=== PATIENT | female | born 1935 | race Caucasian/White ===

== ENCOUNTER 2017-06-16 09:02 | Outpatient (CLI) | payer MEDICARE, MEDICAID ==
[2017-06-16 09:49] LABS: Anion Gap 14 mmol/L (10-20); BUN (Urea Nitrogen) 10 mg/dL (9.8-20.1); Calc. Creatinine Clearance 0 mL/min (70-130); Calcium 9.9 mg/dL (7.8-10.44); Carbon Dioxide 26 mmol/L (23-31); Chloride 105 mmol/L (98-107); Estimated GFR-MDRD 72
--- NOTE | 2017-06-16 11:42 | CT ---
CT OF ABDOMEN AND PELVIS PERFORMED WITHOUT CONTRAST ENHANCEMENT: HISTORY: Hematuria. COMPARISON: 03/11/2015 study. FINDINGS: CT OF ABDOMEN PERFORMED WITHOUT CONTRAST ENHANCEMENT: The lung bases are clear of infiltrates. There is linear scarring in the left base. There are fatty changes of the liver. The spleen and pancreas regions are unremarkable. Gallbladder has been removed. Right and left adrenal glands and right and left kidneys are normal in size. There is a punctate upp er pole left renal calculus present. No obstruction of ureteral calculi. No significant periaortic or mesenteric adenopathy. CT OF PELVIS PERFORMED WITHOUT CONTRAST ENHANCEMENT: No adenopathy, mass, or free fluid. The appendix region appears normal. IMPRESSION: 1. Punctate non-obstructing upper pole left renal calculus. 2. Fatty changes of the liver. POS: JODEEH
== END 2017-06-16 09:03 | disposition home or self-care (01) ==
LOC: CT 09:02
PROVIDERS: ATTEND Urology
DX: N20.0 Calculus of kidney (principal); R31.29 Other microscopic hematuria; E11.9 Type 2 diabetes mellitus without complications; N39.46 Mixed incontinence; K76.0 Fatty (change of) liver, not elsewhere classified
CPT/HCPCS: 36415; 74176; 80048; 83036

== ENCOUNTER 2017-09-30 09:40 | Observation (INO) | payer MEDICARE, MEDICAID ==
[2017-09-30 10:20] LABS: #Eosinphils 0.5 thou/uL (0.0-0.7); #Lymphocytes 1.1 thou/uL (1.20-3.40); #Monocytes 0.6 thou/uL (0.11-0.59); #Neutrophils 5.6 thou/uL (1.40-6.50); %Basophils 0.5 % (0.0-1.0); %Eosinophils 6.1 % (0.0-10.0); %Lymphocytes 14.5 % (21.0-51.0); %Monocytes 7.1 % (0.0-10.0); %Neutrophils 71.8 % (42.0-75.0); Hemoglobin 13.1 g/dL (12.0-16.0); Mean Corpuscular HGB CONC 33.7 g/dL (32.0-36.0); Mean Corpuscular Hemoglobin 29.2 pg (27.0-31.0); Mean Corpuscular Volume 86.7 fl (81.0-99.0); Mean Platelet Volume 6.4 fL (7.4-10.4); Platelet Count 273 thou/uL (130-400); RBC Distribution Width 12.5 % (11.5-14.5); White Blood Cell (WBC) Count 7.8 thou/uL (4.8-10.8)
[2017-09-30 10:40] LABS: ALT (SGPT) 37 U/L (8-55); AST (SGOT) 29 U/L (5-34); Albumin 4.1 g/dL (3.4-4.8); Alkaline Phosphatase 97 U/L (40-150); Anion Gap 10 mmol/L (10-20); BUN (Urea Nitrogen) 14 mg/dL (9.8-20.1); Bilirubin, Total 0.5 mg/dL (0.2-1.2); Calc. Creatinine Clearance 0 mL/min (70-130); Calcium 9.6 mg/dL (7.8-10.44); Carbon Dioxide 25 mmol/L (23-31); Chloride 108 mmol/L (98-107); Estimated GFR-MDRD 71; Globulin 3.5 g/dL (2.4-3.5); Glucose 193 mg/dL (83-110); Potassium 4.1 mmol/L (3.5-5.1); Protein, Total 7.6 g/dL (6.0-8.3); Sodium 139 mmol/L (136-145)
[2017-09-30 10:43] LABS: CKMB 0.9 ng/mL (0-6.6); Troponin I Less than 0.010 ng/mL (< 0.028)
--- NOTE | 2017-09-30 12:24 | CT ---
CT OF THE EMELINA WITHOUT CONTRAST: INDICATION: History of syncope with daily headaches. COMPARISON: Prior exam dated 03/03/17. FINDINGS: The moderate chronic small-vessel white matter ischemic change is stable. No acute infarct, hemorrha ge, or hydrocephalus is present. Septum pellucidum and third ventricle are midline. The skull and e xtracranial soft tissues are unremarkable. IMPRESSION: 1. No acute intracranial abnormality. 2. Stable chronic ischemic change. POS: SAIGE
[2017-09-30] MEDS ORDERED: Acetaminophen 325 MG TAB PO PRN (13:18)
[2017-09-30] MEDS ORDERED: Dextrose 50% Abboject 50 ML SYRINGE SLOW IVP PRN (13:18)
[2017-09-30] MEDS ORDERED: Ondansetron HCl/PF 4 MG/2 ML Vial IVP PRN (13:18)
[2017-09-30] MEDS ORDERED: Guaifenesin DM 100-10/5 ML UDCUP PO PRN (13:18)
[2017-09-30] MEDS ORDERED: Dextrose 5% in Water 1,000 ML IV PRN (13:18)
--- NOTE | 2017-09-30 13:25 | RAD ---
AP VIEW OF THE CHEST: INDICATION: History of syncope. FINDINGS: There is stable mild cardiomegaly. No airspace consolidation, pulmonary vascular congestion, or pleu ral effusion is noted. There is ACDF involving the lower cervical spine. IMPRESSION: Stable cardiomegaly. No acute abnormality. POS: H
[2017-09-30] MEDS ORDERED: Sodium Chloride 0.9% 1,000 ML IV SCH (13:30)
--- NOTE | 2017-09-30 13:37 | ULT ---
BILATERAL LOWER EXTREMITY EDEMA AND PAIN: FINDINGS: Multiple longitudinal and transverse images of the right and left lower extremity venous systems are obtained using a multihertz linear ray transducer. Real-time, color flow, and spectral waveform Dopp ler analysis was used to evaluate the right and left lower extremity venous system. The right and left common femoral, superficial femoral, femoral profunda, popliteal, posterior tibial vein, posttrifurcation veins, and greater saphenous veins are all patent. No evidence of acute or o ld clot seen. POS: JODEE
--- NOTE | 2017-09-30 14:46 | HP ---
REASON FOR ADMISSION: Syncope. HISTORY OF PRESENTING ILLNESS: Please note majority of this history is obtained by talking to patient's daughter at bedside as patient does not recall what happened. She apparently passed out in her bathtub this morning around 9: 00 a.m. The patient was incontinent with urine and stool. She passed out for a few minutes and came back. Prior to passing out, patient apparently called for her daughter saying that I might faint, but does not recall anything after that. Currently she has no complaints of chest pain, palpitation, PND or orthopnea. Has some dry cough. She normally ambulates with a walker or cane and has a short stepping gait. When she passed out, her eyes were blinking and she was unresponsive per family. No complaints of fever. No new frequency or urgency with her urination. Has no specific weakness in any of the extremities. She is fully oriented now. PAST MEDICAL AND SURGICAL HISTORY: Diabetes mellitus type 2, hypertension, dyslipidemia, C-spine surgery, postherpetic neuralgia, GERD, prior upper endoscopy with stricture and dilatation by Dr. Villafuerte, total abdominal hysterectomy with bilateral salpingo-oophorectomy, appendectomy, left knee surgery, cholecystectomy, sigmoid colectomy, and tonsillectomy. CURRENT MEDICATIONS: The patient is on losartan 50 mg daily, glimepiride 2 mg daily, Myrbetriq extended release 50 mg daily, Zetia 10 mg p.o. daily. ALLERGIES: Allergic to IODINE, PENICILLIN, CODEINE, SULFA, and TAPE. PERSONAL HISTORY: Does not abuse alcohol or drugs. No history of smoking. She stays with her daughter, Ms. Dickinson. Code status: is FULL, POA is her daughter. FAMILY HISTORY: Mother at the age of 83 years. She has had history of CVA. The patient does not know much about her father. REVIEW OF SYSTEMS: The following complete review of systems was negative, unless otherwise mentioned in the HPI or below: Constitutional: Weight loss or gain, ability to conduct usual activities. Skin: Rash, itching. Eyes: Double vision, pain. ENT/Mouth: Nose bleeding, neck stiffness, pain, tenderness. Cardiovascular: Palpitations, dyspnea on exertion, orthopnea. Respiratory: Shortness of breath, wheezing, cough, hemoptysis, fever or night sweats. Gastrointestinal: Poor appetite, abdominal pain, heartburn, nausea, vomiting, constipation, or diarrhea. Genitourinary: Urgency, frequency, dysuria, nocturia. Musculoskeletal: Pain, swelling. Neurologic/Psychiatric: Anxiety, depression. Allergy/Immunologic: Skin rash, bleeding tendency. PHYSICAL EXAMINATION: GENERAL: The patient is a 81-year-old female who is currently not in any acute distress. VITAL SIGNS: Blood pressure 136/76, pulse 80 per minute, respiratory rate 18 per minute, saturating 93% on room air, temperature is 98.1 degrees Fahrenheit. NECK: Supple, no elevated JVD. EYES: Extraocular muscles intact. Pupils reacting to light. ORAL CAVITY: Mucous membranes are moist. No exudates or congestion. CARDIOVASCULAR SYSTEM: S1, S2 heard. Regular rhythm. RESPIRATORY SYSTEM: Air entry 1+ bilaterally. No rales or rhonchi. ABDOMEN: Soft, bowel sounds heard. No tenderness, rigidity or guarding. EXTREMITIES: No peripheral edema or calf tenderness. VASCULAR SYSTEM: Peripheral pulses 1+ bilateral, no ischemic ulcerations or gangrene. CENTRAL NERVOUS SYSTEM: No gross focal deficits seen. Patient is alert and oriented well. PSYCHIATRIC SYSTEM: The patient's mood is euthymic. No hallucinations or delusions. IMAGING DATA AND LABORATORY DATA: Ultrasound venous Doppler of lower extremities done showed no evidence of DVT. Chest x-ray done showed no acute abnormality. CT brain without contrast done showed no acute intracranial abnormality. Serum glucose 193, BUN 14, creatinine 0.7. Liver enzymes within normal limits. First set of cardiac enzymes are negative. BNP 19. Albumin is 4.1. Vitamin B12 316. Prolactin is 21. White count of 7, hemoglobin and hematocrit 13 and 39, platelet count 273 with 71% neutrophils, MCV is 86. CLINICAL IMPRESSION AND PLAN: The patient will be under observation on telemetry for an episode of syncope. The patient knew that she would faint and passed out prior to this happening. We will obtain orthostatic blood pressures. One liter of normal saline will be given at 50 mL per hour. We will continue her Cozaar, Myrbetriq and Zetia for now. Patient and family are requesting consultation with Dr. Dumont and Dr. Dhillon for Cardiology. Continue to closely monitor her on telemetry. There are no obvious sources of infection at present. We will obtain urinalysis when she can provide one. I have given full updates to family including the two daughters who are here at bedside. BRADLEY
--- NOTE | 2017-09-30 17:05 | CON ---
DATE OF CONSULTATION: 09/30/2017 REFERRING PROVIDER: Abdulaziz Bang M.D. REASON FOR CONSULTATION: Syncope. HISTORY OF PRESENT ILLNESS: Ms. Duenas is a pleasant 81-year-old female who has been consul miguel for evaluation of syncope. History is obtained from patient's daughter who was present [facility]. Daughter reports that this morning she was helping her to take shower. During that time she star miguel complaining of feeling dizzy and lightheaded. She felt as if she was going to faint. She made h er sit down and after she sat down, she suddenly passed out. She was unresponsive for approximately 2 minutes. There were no convulsions or tongue biting or frothing at the mouth noted. She called EM S. She did have loss of bladder control and bowel control with this episode. There was a very short duration of postictal confusion. She states that she has had similar episode in 02/2017 for which s he was admitted to the [facility]. At that time, she was by herself. At that time she did have a loss of bladder control and bowel control. However, there was no tongue biting or frothing at the mouth. She had seen Dr. Dhillon, building contractor as outpatient and had stress test, EKG, and echocard iogram which were unrevealing. She also had seen Dr. Erik Dumont as an outpatient in the clinic who had done an EEG. Apparently according to the daughter, the EEG was normal. Dr. Dumont did recomme nd to have PET scan done; however, insurance did not approve and thus it was not obtained. She did h ave MRI brain with and without contrast in February when she presented with a syncopal event and at that time, MRI was negative for acute intracranial abnormality. The patient currently reports of fee ling lightheaded and feeling weak all over. She denies any chest pain, palpitation, nausea, vomiting and abdominal pain. PAST MEDICAL HISTORY: Significant for hypertension, diabetes, dyslipidemia, postherpetic neuralgia d isease, GERD. PAST SURGICAL HISTORY: Significant for esophageal dilation, hysterectomy, appendectomy, left knee márquez rgery, cholecystectomy, sigmoid colectomy, tonsillectomy, and C-spine surgery. SOCIAL HISTORY: She denies smoking, alcohol use, or illicit drug use. She currently stays with her daughter. CURRENT MEDICATIONS: Please review MAR. ALLERGIES: Include IODINE, PENICILLIN, CODEINE, SULFA, and TAPE. FAMILY HISTORY: Noncontributory. REVIEW OF SYSTEMS: As mentioned above in the HPI, otherwise negative. PHYSICAL EXAMINATION: VITAL SIGNS: Blood pressure of 161/68, pulse of 74, temperature of 97.7, respirations of 20, O2 sats of 94% on room air. GENERAL: Well-developed and well-nourished female in no apparent distress. RESPIRATORY: Clear to auscultation bilaterally. CARDIOVASCULAR: Regular rate and rhythm. NEUROLOGIC: Mental status: The patient is awake, alert, oriented x3. Speech and language: Fluent speech. Cranial nerves: Pupils are 3 mm and reactive. Visual paredes are intact. Extraocular muscl es are intact. No nystagmus is noted. Face is symmetric. Tongue and uvula are midline. Motor exam showed normal tone and bulk with 5/5 strength in upper and lower extremities. Sensory: Sensation i s intact and symmetric. Deep tendon reflexes 2+ reflexes in both upper and lower extremities. Idania ski: Plantar responses flexion bilaterally. Coordination intact to [id number] and finger ta pping bilaterally. LABORATORY DATA: Reviewed, which included CBC and CMP, which is significant for glucose of 193. B12 level was 316. IMAGING STUDIES: CT head without contrast was reviewed which showed no acute intracranial abnormalit y. IMPRESSION: Syncope. ASSESSMENT AND PLAN: Ms. Duenas is a pleasant 81-year-old female, who presented with the sy ncopal event. Based on description, this is less likely to be epileptic in nature. At this time, I would recommend obtaining MRI brain without contrast and MR angiogram of the head and neck. If these are normal, patient can be seen by Dr. Erik Dumont as outpatient and have EEG done. I would hold o ff on starting an antiepileptic medication for now. I have discussed with the patient's daughter and explained that they may need to have sleep deprived EEG along with the cardiac monitoring done as ou tpatient in the future. Thank you for consultation.
[2017-09-30 18:32] LABS: Bilirubin Negative (Negative); Blood, Urine Negative (Negative); Clarity CLEAR (Clear); Glucose, Urine (Dipstick) Negative (Negative); Leukocyte Negative (Negative); Nitrite Negative (Negative); Protein, Urine (Dipstick) Negative (Neg-Trace); Urobilinogen 0.2 mg/dL (0.2-1.0)
[2017-09-30 18:35] LABS: Bacteria/HPF None Seen HPF (None Seen); Hyaline Casts/LPF 0-3 HYALINE CAST LPF (0-3 Hyaline); RBC/HPF 0-3 HPF (0-3); Squamous Epithelial 0-3 HPF (0-3); WBC/HPF 0-3 HPF (0-3)
--- NOTE | 2017-09-30 18:52 | CON ---
DATE OF CONSULTATION: 09/30/2017. REASON FOR CONSULTATION: Syncope. PRIMARY BUYER BROKER: Ita Dhillon M.D. HISTORY OF PRESENT ILLNESS: Mrs. Duenas is a pleasant 81-year-old white female who comes to the [facility] for syncope. She was at home, her daughter was helping her given her a shower, she started notic ing she was feeling faint, close to passing out. The daughter was able to sit her down and then she suddenly just was unresponsive for about 2 minutes. She did not have any seizure-like activity. She woke up after that. She was probably confused for just a minute or two after that and then she was back to normal. The daughter tells me that for the past few months, she has been having episodes of near syncope and this is the first time she has been completely passed out. She saw Dr. Dhillon back in 2011 for shortness of breath. She had a negative stress test and an echocardiogram that was unrevea ling as well. PAST MEDICAL HISTORY: 1. Hypertension. 2. Type 2 diabetes. 3. Hyperlipidemia. 4. Postherpetic neuralgia. 5. Gastroesophageal reflux disease. PAST SURGICAL HISTORY: 1. Esophageal dilatation. 2. Hysterectomy. 3. Appendectomy. 4. Left knee surgery. 5. Cholecystectomy. 6. Sigmoid colectomy. 7. Tonsillectomy. 8. C-spine surgery. SOCIAL HISTORY: No alcohol, tobacco or drugs. OUTPATIENT MEDICATIONS: Include, 1. Tylenol p.r.n. 2. Sertraline 50 mg a day. 3. Myrbetriq 50 mg a day. 4. Glimepiride 2 mg p.o. q.a.m. 5. Januvia 100 mg a day. 6. Losartan 50 mg a day. ALLERGIES: 1. LYRICA. 2. SHELLFISH. 3. CODEINE. 4. ADHESIVE. 5. CYMBALTA. 6. IODINE. 7. LISINOPRIL. 8. PENICILLIN. 9. STATIN DRUGS. 10. ADHESIVES. SOCIAL HISTORY: No alcohol, tobacco or drugs. FAMILY HISTORY: Noncontributory. REVIEW OF SYSTEMS: A 12-point review of systems was done and is all negative unless stated in the hi story of present illness. PHYSICAL EXAMINATION: VITAL SIGNS: Temperature 97.7, pulse 74, respiration rate 20, satting 94% on room air, blood pressur e 161/68. GENERAL: Awake, alert, oriented x3, in no distress. HEENT: Normocephalic, atraumatic. NECK: Supple. LUNGS: Clear. CARDIOVASCULAR: S1, S2. No S3, no S4. There is a grade 2/6 systolic murmur in the right upper ster nal border and a second holosystolic murmur at the apex. ABDOMEN: Soft. Positive bowel sounds. EXTREMITIES: 1+ edema. SKIN: Warm and dry. LABORATORY WORK: Reviewed. CBC was unremarkable. CMP was unremarkable. Troponin negative x1. BNP was 19. EKG was reviewed. CT of the brain showed no acute intracranial abnormality, chronic ischemic changes. Lower extremity venous duplex ultrasound, no evidence of acute or old blood clots. Chest x-ray was unremarkable. ASSESSMENT AND PLAN: Syncope: Certainly could be related to tachycardia or bradycardias. We will p susana on doing an echocardiogram in house. If this is unrevealing of causes of syncope, would discharg e home and set her up as an outpatient for the 30-day event monitor as she is having these episodes o f presyncope about twice a month. Thank you for letting us to participate in the care of your patient. We will follow.
[2017-09-30] MEDS: Famotidine 20 MG TAB PO SCH (22:23)
[2017-09-30] MEDS: Docusate 100 MG CAP PO SCH (22:23)
[2017-10-01 05:15] LABS: #Eosinphils 0.4 thou/uL (0.0-0.7); #Lymphocytes 1.4 thou/uL (1.20-3.40); #Monocytes 0.6 thou/uL (0.11-0.59); #Neutrophils 5.4 thou/uL (1.40-6.50); %Basophils 0.3 % (0.0-1.0); %Eosinophils 4.9 % (0.0-10.0); %Monocytes 7.5 % (0.0-10.0); %Neutrophils 69.3 % (42.0-75.0); Mean Corpuscular HGB CONC 33.1 g/dL (32.0-36.0); Mean Corpuscular Volume 87.5 fl (81.0-99.0); Mean Platelet Volume 6.5 fL (7.4-10.4); Platelet Count 249 thou/uL (130-400); RBC Distribution Width 12.5 % (11.5-14.5); Red Blood Cell (RBC) Count 4.15 mill/uL (4.20-5.40); White Blood Cell (WBC) Count 7.7 thou/uL (4.8-10.8)
[2017-10-01 05:33] LABS: Anion Gap 9 mmol/L (10-20); BUN (Urea Nitrogen) 13 mg/dL (9.8-20.1); Calc. Creatinine Clearance 82 mL/min (70-130); Carbon Dioxide 25 mmol/L (23-31); Chloride 109 mmol/L (98-107); Estimated GFR-MDRD 73; Glucose 167 mg/dL (83-110); Potassium 3.9 mmol/L (3.5-5.1); Sodium 139 mmol/L (136-145)
[2017-10-01] MEDS ORDERED: Ondansetron ODT 4 MG TAB PO PRN (09:45)
[2017-10-01] MEDS: Losartan 25 MG TAB PO SCH ×2 (09:48)
[2017-10-01] MEDS: Docusate 100 MG CAP PO SCH (09:49)
[2017-10-01] MEDS: Famotidine 20 MG TAB PO SCH (09:49)
[2017-10-01] MEDS: HumaLOG 300 UNITS/3 ML VIAL SC PRN ×3 (09:49→22:24)
[2017-10-01] MEDS: Ezetimibe 10 MG TAB PO SCH (09:49)
[2017-10-01] MEDS: Enoxaparin Sodium 40 MG/0.4 ML SYRINGE SC SCH (09:50)
--- NOTE | 2017-10-01 10:46 | MRI ---
MRI OF THE BRAIN WITHOUT CONTRAST: INDICATION: History of nausea and dizziness for 2 days. The patient reports feeling like she is drunk. COMPARISON: Prior CT of the brain dated 09/30/17 and MRI of the brain dated 04/10/15. FINDINGS: No area of restricted diffusion is seen to suggest the presence of acute ischemia. There is perivent ricular white matter hyperintensity that has progressed from the prior examination suspicious for wor sening moderate chronic small-vessel white matter ischemic disease. The septum pellucidum and third ventricle are midline. There are appropriate flow voids seen within the major intracranial vessels. The skull and extracranial soft tissues are unremarkable. IMPRESSION: 1. No acute intracranial abnormality. 2. Worsening moderate chronic small-vessel white matter ischemic change. POS: SAIGE
--- NOTE | 2017-10-01 11:36 | PDOC.PN ---
- Subjective Encounter Start Date: 10/01/17 Encounter Start Time: 09:50 Subjective: apparently pt had another episode of near syncope this am -: telemetry did not reveal any arrythmia during the episode -: has nausea and abd pain-Lower quadrants >on right - Objective Resuscitation Status: Resuscitation Status FULL:Full Resuscitation MAR Reviewed: Yes Vital Signs & Weight: Vital Signs (12 hours) Temp Pulse Resp BP Pulse Ox 10/01/17 04:00 97.9 F 86 15 138/64 95 10/01/17 02:03 98.7 F 88 15 10/01/17 00:00 98.7 F 88 15 179/75 H 94 L Weight Weight 191 lb 3 oz I&O: 09/30/17 10/01/17 10/02/17 06:59 06:59 06:59 Intake Total 710 Output Total 750 Balance -40 Result Diagrams: 10/01/17 04:54 10/01/17 04:54 Additional Labs: Accuchecks 10/01/17 09/30/17 09/30/17 06:10 20:33 16:56 POC Glucose 159 H 126 H 97 Phys Exam - Physical Examination HEENT: PERRLA, moist MMs Neck: no JVD, supple Respiratory: no wheezing, no rales Cardiovascular: RRR, no significant murmur Gastrointestinal: soft, no distention, positive bowel sounds no rigidity or guarding Musculoskeletal: no edema, pulses present Neurological: non-focal, moves all 4 limbs Psychiatric: normal affect, A&O x 3 Dx/Plan (1) Syncope Code(s): R55 - SYNCOPE AND COLLAPSE Status: Acute Comment: recurrent episodes (2) HTN (hypertension) Code(s): I10 - ESSENTIAL (PRIMARY) HYPERTENSION Status: Chronic Qualifiers: Hypertension type: essential hypertension Qualified Code(s): I10 - Essential (primary) hypertension (3) Dyslipidemia Code(s): E78.5 - HYPERLIPIDEMIA, UNSPECIFIED Status: Chronic (4) Obesity (BMI 30.0-34.9) Code(s): E66.9 - OBESITY, UNSPECIFIED Status: Chronic - Plan MRI brain shows chronic worsoning isch white matter changes, no ac cva -: echo is pending, telemetry has not revealed any arrythmias -: is on cozaar, zetia and myrbetriq -: will obtain CT abd and pelvis, pt is allergic to contrast -: d/w family and pt (2 daughters and grandson at bedside) * . Review of Systems - Medications/Allergies Allergies/Adverse Reactions: Allergies Allergy/AdvReac Type Severity Reaction Status Date / Time pregabalin [From Lyrica] Allergy Severe SWELLING Verified 04/15/15 10:21 shellfish derived Allergy Severe SWELLING Verified 04/15/15 10:21 codeine Allergy Intermediate N/V Verified 04/15/15 10:21 adhesive Allergy Verified 04/15/15 10:21 duloxetine HCl Allergy SWELLING Verified 04/15/15 10:21 [From Cymbalta] iodine Allergy Verified 04/15/15 10:21 lisinopril Allergy ? Verified 04/15/15 10:21 Penicillins Allergy Verified 04/15/15 10:21 Atizwdf-Yzm-Mcr Reductase Allergy PAIN Verified 04/15/15 10:21 Inhibitor ADHESIVES Allergy Intermediate Rash Uncoded 04/15/15 10:21 Medications: Current Medications Acetaminophen (Tylenol) 650 mg PO Q4H PRN PRN Reason: Headache/Fever or Pain Dextrose/Water (Dextrose 50%) 25 gm SLOW IVP PRN PRN PRN Reason: Hypoglycemia Docusate Sodium (Colace) 100 mg PO BID [facility] Last Admin: 10/01/17 09:49 Dose: Not Given Ezetimibe (Zetia) 10 mg PO DAILY [facility] Last Admin: 10/01/17 09:49 Dose: 10 mg Enoxaparin Sodium (Lovenox) 40 mg SC 0900 [facility] Last Admin: 10/01/17 09:50 Dose: 40 mg Famotidine (Pepcid) 20 mg PO BID [facility] Last Admin: 10/01/17 09:49 Dose: 20 mg Glucagon (Glucagon) 1 mg IM PRN PRN PRN Reason: Hypoglycemia Guaifenesin/Dextromethorphan (Robitussin Dm) 15 ml PO Q4H PRN PRN Reason: Cough Dextrose/Water (D5w) 1,000 mls @ 0 mls/hr IV .Q0M PRN; As Directed PRN Reason: Hypoglycemia Insulin Human Lispro (Humalog) 0 units SC .MILD SLIDING SCALE PRN PRN Reason: Mild Correctional Scale Last Admin: 10/01/17 09:49 Dose: 2 units Losartan Potassium (Cozaar) 50 mg PO DAILY [facility] Last Admin: 10/01/17 09:48 Dose: 50 mg Mirabegron (Myrbetriq Er) 25 mg PO DAILY [facility] Last Admin: 10/01/17 09:50 Dose: 25 mg Ondansetron HCl (Zofran Odt) 4 mg PO Q6H PRN PRN Reason: Nausea/Vomiting
--- NOTE | 2017-10-01 14:49 | PDOC.CTH ---
Cardiology Progress Note - Subjective She had an episode around 10:30 were she felt presyncopal. I reviewed telemetry and her monitor was off and placed back on her at exactly 10:27 a.m. and we only saw sinus rhythm. - Objective Vital Signs Temp Pulse Resp BP Pulse Ox 10/01/17 12:25 97.7 F 82 20 145/66 H 95 10/01/17 08:30 98 F 86 20 10/01/17 04:00 97.9 F 86 15 138/64 95 Weight 191 lb 3 oz 09/30/17 10/01/17 10/02/17 06:59 06:59 06:59 Intake Total 710 Output Total 750 Balance -40 - Physical Examination General/Neuro: alert & oriented x3, NAD Neck: no JVD present Lungs: CTA, unlabored respirations Heart: RRR Abdomen: NT/ND Extremities: other: (no edema) - Telemetry Telemetry Rhythm: NSR - Labs Result Diagrams: 10/01/17 04:54 10/01/17 04:54 Troponin/CKMB CK-MB (CK-2) 0.9 ng/mL (0-6.6) 09/30/17 10:13 Troponin I Less than 0.010 ng/mL (< 0.028) 09/30/17 10:13 - Assessment/Plan 1. Syncope. PLAN: - Echo pending. If unremarkable she can be discharged home and will set her up with a [address] Dr[address] Dhillon.
--- NOTE | 2017-10-01 16:10 | CT ---
CT OF THE ABDOMEN AND PELVIS WITHOUT IV CONTRAST: Indication: History of nausea with abdominal pain. Comparison: 06-16-17 FINDINGS: There is bibasilar subsegmental atelectasis. There is a calcified granuloma of the right middle lobe. There is hepatomegaly with fatty infiltration. There are calcified granulomas within the spleen. The gallbladder is surgically absent. Pancreas, adrenal glands, and right kidney are normal appearing. Th ere is a 1-2 mm nonobstructing calculus within the superior pole of the left kidney. No hydronephrosi s is evident. There are numerous phleboliths within the gonial veins. The uterus is surgically absent. The bladder, rectum, and perirectal soft tissues are unremarkable. There is post-surgical change of partial colec antionette. The appendix is not definitely visualized. The small bowel is of normal caliber. No free fluid is evident. There is diffuse osteopenia. There is scattered degenerative osteophytic change. IMPRESSION: 1. No acute abnormality. 2. Hepatomegaly with fatty infiltration. 3. Findings of prior granulomatous disease. 4. Cholecystectomy. 5. Left nephrolithiasis. 6. Other chronic findings. POS: [facility]
[2017-10-02] MEDS: Famotidine 20 MG TAB PO SCH ×3 (05:12→21:38)
[2017-10-02] MEDS: Docusate 100 MG CAP PO SCH ×3 (05:12→21:39)
[2017-10-02] MEDS: Losartan 25 MG TAB PO SCH ×2 (08:11)
[2017-10-02] MEDS: Enoxaparin Sodium 40 MG/0.4 ML SYRINGE SC SCH (08:12)
[2017-10-02] MEDS: Ezetimibe 10 MG TAB PO SCH (08:12)
--- NOTE | 2017-10-02 13:21 | PDOC.PN ---
- Subjective Encounter Start Date: 10/02/17 Encounter Start Time: 10:20 Subjective: is awake oriented well -: no complaints this am -: slept well last night, ate her breakfast this am - Objective Resuscitation Status: Resuscitation Status FULL:Full Resuscitation MAR Reviewed: Yes Vital Signs & Weight: Vital Signs (12 hours) Temp Pulse Resp BP BP BP Pulse Ox 10/02/17 11:05 98.7 F 89 18 131/93 H 97 10/02/17 10:35 131/93 H 10/02/17 08:20 98.7 F 89 18 97 10/02/17 08:04 98.3 F 86 18 207/85 H 96 10/02/17 05:14 151/76 H 10/02/17 05:00 98.4 F 90 20 212/88 H 95 Weight Weight 187 lb 4.8 oz I&O: 10/01/17 10/02/17 10/03/17 06:59 06:59 06:59 Intake Total 710 1080 Output Total 750 Balance -40 1080 Result Diagrams: 10/01/17 04:54 10/01/17 04:54 Additional Labs: Accuchecks 10/02/17 10/02/17 10/01/17 11:53 05:54 19:47 POC Glucose 214 H 176 H 207 H 10/01/17 16:52 POC Glucose 180 H Phys Exam - Physical Examination HEENT: PERRLA, moist MMs Neck: no JVD, supple Respiratory: no wheezing, no rales Cardiovascular: RRR, no significant murmur Gastrointestinal: soft, non-tender, positive bowel sounds Musculoskeletal: no edema, pulses present Neurological: non-focal, moves all 4 limbs Psychiatric: A&O x 3 Dx/Plan (1) Syncope Code(s): R55 - SYNCOPE AND COLLAPSE Status: Acute Comment: recurrent episodes (2) HTN (hypertension) Code(s): I10 - ESSENTIAL (PRIMARY) HYPERTENSION Status: Chronic Qualifiers: Hypertension type: essential hypertension Qualified Code(s): I10 - Essential (primary) hypertension (3) Dyslipidemia Code(s): E78.5 - HYPERLIPIDEMIA, UNSPECIFIED Status: Chronic (4) Obesity (BMI 30.0-34.9) Code(s): E66.9 - OBESITY, UNSPECIFIED Status: Chronic - Plan echo shows good ef -: awaiting MRI angio brain results (family prefers to have it done) -: may dc home if ok with cardio/neurology -: outpt event monitor * .
[2017-10-02] MEDS: HumaLOG 300 UNITS/3 ML VIAL SC PRN (13:41)
[2017-10-02 14:37] VITALS: BMI 33.1
--- NOTE | 2017-10-02 16:18 | MRI ---
MR ANGIOGRAM [place] OF [place] AND VERTEBROBASILAR SYSTEM WITH 3D RECONSTRUCTED IMAGES PROVIDED: TECHNIQUE: Three-dimensional [id number] images of the resighini of Yang and vertebrobasilar system are obtain ed, and three-dimensional reconstructed images are provided. FINDINGS: There is suboptimal flow-related enhancement in the most distal vertebral arteries bilaterally. This is a symmetric finding and is likely secondary to technique. No focal narrowing is seen, and the di stal vertebral arteries, as well as the basilar artery, are patent. The bilateral posterior cerebral and superior cerebellar arteries are patent. The bilateral middle cerebral and anterior cerebral arteries are patent. There is suggestion of a fo daija area of absence of flow-related enhancement involving the proximal into segmental left middle cer ebral artery, but there is motion present in this region, which likely accounts for this finding. No focal stenosis or branch occlusion is appreciated. No aneurysm is seen within the limitations of the technique of this examination. IMPRESSION: No focal narrowing is seen involving the resighini of Yang or the vertebrobasilar system. POS: SAIGE
[2017-10-02] MEDS ORDERED: Sodium Chloride 0.9% 10 ML ONE (20:43)
[2017-10-03] MEDS ORDERED: Losartan 25 MG TAB PO SCH ×2 (04:45)
[2017-10-03 05:10] LABS: Hemoglobin 12.6 g/dL (12.0-16.0); Platelet Count 254 thou/uL (130-400)
--- NOTE | 2017-10-03 08:25 | PDOC.CTH ---
Cardiology Progress Note - Subjective The pt seen and examined. No overnight events. No cardiac complaints. She complains of fogginess and discomfort in her head for 4-5 days. - Objective Vital Signs Temp Pulse Resp BP Pulse Ox 10/03/17 06:45 83 18 184/80 H 10/03/17 04:20 98.4 F 85 18 180/78 H 93 L 10/02/17 23:50 98.4 F 91 16 178/86 H 93 L Admit Weight 191 lb 3.2 oz Weight 181 lb 10/02/17 10/03/17 10/04/17 06:59 06:59 06:59 Intake Total 1080 1080 Output Total 1100 Balance 1080 -20 - Physical Examination General/Neuro: alert & oriented x3 Neck: no JVD present Lungs: CTA Heart: RRR Abdomen: soft Extremities: other: (No edema) - Telemetry Telemetry Rhythm: SR 70s - Labs Result Diagrams: 10/03/17 04:50 10/03/17 04:50 Troponin/CKMB CK-MB (CK-2) 0.9 ng/mL (0-6.6) 09/30/17 10:13 Troponin I Less than 0.010 ng/mL (< 0.028) 09/30/17 10:13 - Assessment/Plan 1. Syncope - No syncopal episodes during this admission; Echo on 10/02/17 showed EF 55-60%, grade I diastolic dysfunction, mild dilated LA, trace MR, mild TR. 2. HTN - start Norvasc 5mg qHS from tonight 3. Hyperlipidemia - on Zetia 4. DM type 2 - managed by PCP 5. GERD - 6. Postherpetic neuralgia 7. Obese - MAR reviewed * Ok to D/c home with 1 month EVR when the pt's VS is stable. The pt will f/u with Dr Dhillon' office within 2-4 wks. Review of Systems - Review of Systems Constitutional: reports: see HPI, weakness EENTM: reports: no symptoms reported Respiratory: reports: no symptoms reported Cardiac (ROS): reports: no symptoms reported ABD/GI: reports: no symptoms reported : reports: no symptoms reported Musculoskeletal: reports: no symptoms reported
[2017-10-03] MEDS: Ezetimibe 10 MG TAB PO SCH (08:35)
[2017-10-03] MEDS: Docusate 100 MG CAP PO SCH (08:35)
[2017-10-03] MEDS: Enoxaparin Sodium 40 MG/0.4 ML SYRINGE SC SCH (08:36)
[2017-10-03] MEDS: Famotidine 20 MG TAB PO SCH (08:45)
[2017-10-03 11:48] VITALS: TEMP 98.4
--- NOTE | 2017-10-03 13:09 | PDOC.PN ---
- Subjective Encounter Start Date: 10/03/17 Encounter Start Time: 09:30 Subjective: awake, no new complaints -: is moving all extremities -: no sob or chest pain - Objective Resuscitation Status: Resuscitation Status FULL:Full Resuscitation MAR Reviewed: Yes Vital Signs & Weight: Vital Signs (12 hours) Temp Pulse Resp BP BP Pulse Ox 10/03/17 11:47 98.4 F 83 18 137/68 94 L 10/03/17 08:34 98.6 F 80 18 173/82 H 93 L 10/03/17 08:14 98.6 F 80 18 10/03/17 06:45 83 18 184/80 H 10/03/17 04:20 98.4 F 85 18 180/78 H 93 L Weight Admit Weight 191 lb 3.2 oz Weight 181 lb I&O: 10/02/17 10/03/17 10/04/17 06:59 06:59 06:59 Intake Total 1080 1080 Output Total 1100 400 Balance 0312 -20 400 Result Diagrams: 10/03/17 04:50 10/03/17 04:50 Additional Labs: Accuchecks 10/03/17 10/03/17 10/02/17 10:10 06:05 21:00 POC Glucose 184 H 173 H 174 H 10/02/17 10/02/17 16:59 16:45 POC Glucose 174 H 166 H Phys Exam - Physical Examination HEENT: PERRLA, moist MMs Neck: no JVD, supple Respiratory: no wheezing, no rales Cardiovascular: RRR, no significant murmur Gastrointestinal: soft, non-tender, positive bowel sounds Musculoskeletal: no edema, pulses present Neurological: non-focal, moves all 4 limbs Psychiatric: A&O x 3 Dx/Plan (1) Syncope Code(s): R55 - SYNCOPE AND COLLAPSE Status: Acute Comment: recurrent episodes (2) HTN (hypertension) Code(s): I10 - ESSENTIAL (PRIMARY) HYPERTENSION Status: Chronic Qualifiers: Hypertension type: essential hypertension Qualified Code(s): I10 - Essential (primary) hypertension (3) Dyslipidemia Code(s): E78.5 - HYPERLIPIDEMIA, UNSPECIFIED Status: Chronic (4) Obesity (BMI 30.0-34.9) Code(s): E66.9 - OBESITY, UNSPECIFIED Status: Chronic - Plan d/w , trial of sinemet at low dose to see if her gait improves -: d/w CM, switch to obs status, increase norvasc HS to 10mg -: dc pt home -: to f/u with in 4 weeks to see response to sinemet -: event monitor via office * .
[2017-10-03 13:16] VITALS: BP 149/68
--- NOTE | 2017-10-03 15:49 | DIS ---
DATE OF ADMISSION: 09/30/2017 DATE OF DISCHARGE: 10/03/2017 DISCHARGE DISPOSITION: To home with home health and PT. PRIMARY DISCHARGE DIAGNOSIS: Syncope. SECONDARY DISCHARGE DIAGNOSES: Hypertension, chronic deconditioning, dyslipidemia, obesity. PROCEDURES DONE DURING HOSPITALIZATION: Ultrasound venous Doppler of lower extremities done showed no evidence of DVT. CT brain done showed no acute intracranial abnormality. There are stable chronic ischemic changes seen. Abdominal pelvic CAT scan showed no acute abnormality. There is fatty infiltration seen in the liver, nonobstructing calculus was seen in the left kidney. MRI brain showed no acute intracranial abnormality. There was worsening of moderate chronic small vessel white matter ischemic changes seen. Echo with 2D Doppler showed EF of 55%-60%. There was grade I x3 diastolic dysfunction structurally normal aortic valve. MRI angiogram of the brain showed no evidence of focal narrowing seen involving [place] of [place] or the vertebrobasilar system. H&H 12 and 37, and platelet count 254. Discharge creatinine 0.7. B12 was 316. BNP 19. One set of cardiac enzymes were negative. Albumin 4.1. DISCHARGE MEDICATIONS: Norvasc 10 mg p.o. at bedtime, Cozaar 50 mg p.o. daily, Myrbetriq Extended Release 50 mg p.o. daily, sertraline 50 mg p.o. daily, Januvia 100 mg p.o. daily, glimepiride 2 mg p.o. q.a.m., and Sinemet 10/100 mg 1 tab twice daily. ALLERGIES: SHELLFISH, IODINE, CODEINE, ADHESIVE, DULOXETINE, PENICILLIN, LISINOPRIL, STATINS. INPATIENT CONSULTS: Dr. Stefania Martinez for Neurology, Dr. Anaya/Jacquie for Cardiology. BRIEF COURSE DURING HOSPITALIZATION: Patient initially got admitted on the after she apparently passed out for 2-3 minutes in the bathroom. She was initially placed under observation and has had complete Cardiac and Neurology workups done. She has had consultation with Dr. Anaya for Cardiology and Dr. Stefania Martinez who was covering for Dr. Julia Valencia. She has had multiple imaging studies for the brain which did not reveal any acute abnormalities. Abdominal and pelvic CAT scan done for nonspecific lower quadrant pain did not reveal any acute abnormality. Telemetry has not revealed any acute arrhythmias. She will be going home with even monitor, which will be arranged by Dr. Dhillon' office. Home health with PT, OT, and nursing will be arranged at the time of discharge. The patient has had chronic deconditioning for almost a year and half with short stepping gait, that has been progressively worsening per patient 's family. Rehab evaluation was also requested during her stay here. They will be on the lookout if she were to perform worse with home health with PT and if insurance approves, she probably can go to inpatient rehabilitation from home. I have given complete updates to patient's daughters and her primary care physician, Dr. Eitan Acosta. The patient was placed on a trial of Sinemet to see if it would help her with her gait for possible early Parkinson's. I have discussed with Dr. Dumont who will be following up with the patient in 4 weeks to see the response to Sinemet. The patient and family are advised to come to the emergency room if she were to have untoward events at home including recurrent syncope. She is hemodynamically and neurologically stable prior to discharge. Please see a [id number] documentation on [facility] for the day of discharge. BRADLEY
[2017-10-03] MEDS ORDERED: Amlodipine 10 MG TAB PO SCH (21:00)
[2017-10-03] MEDS ORDERED: Amlodipine 5 MG TAB PO SCH ×2 (21:00)
[2017-10-03] MEDS ORDERED: Carbidopa/Levodopa 10-100 mg Tablet PO SCH (21:00)
[2017-10-04] MEDS ORDERED: Losartan 25 MG TAB PO SCH ×2 (09:00)
== END 2017-10-03 16:01 | disposition home or self-care (01) ==
LOC: ERS 09:40 → OBSVTOIN 12:16 → INTOOBSV 12:16 → 2NO 12:16
PROVIDERS: ADMIT Internal Medicine; ATTEND Internal Medicine
DX: R55 Syncope and collapse (principal); I10 Essential (primary) hypertension; R53.81 Other malaise; E78.5 Hyperlipidemia, unspecified; E66.9 Obesity, unspecified; E11.9 Type 2 diabetes mellitus without complications; B02.29 Other postherpetic nervous system involvement; K21.9 Gastro-esophageal reflux disease without esophagitis; Z68.32 Body mass index [BMI] 32.0-32.9, adult; Z79.84 Long term (current) use of oral hypoglycemic drugs; Z79.899 Other long term (current) drug therapy; Z91.041 Radiographic dye allergy status; Z88.5 Allergy status to narcotic agent; Z88.0 Allergy status to penicillin; Z88.2 Allergy status to sulfonamides; Z91.048 Other nonmedicinal substance allergy status; Z88.8 Allergy status to other drugs, medicaments and biological substances; Z91.013 Allergy to seafood; Z90.49 Acquired absence of other specified parts of digestive tract; Z90.89 Acquired absence of other organs; Z90.710 Acquired absence of both cervix and uterus; Z90.79 Acquired absence of other genital organ(s); Z90.722 Acquired absence of ovaries, bilateral; Z98.890 Other specified postprocedural states
CPT/HCPCS: 70450; 70544; 70551; 71045; 74176; 80048; 80053; 81001; 82553; 82565; 82607; 82962 ×4; 83880; 84146; 84484; 85014; 85018; 85025 ×2; 85049; 93005; 93306; 93970; 96361; 96372 ×3; 96374; 97116 ×2; 97139 ×4; 97530; 99285; G0378; G8978; G8979; G8987; G8988; 36415; 36416; 96360; A4216; J1650; J2405; Q0162

== ENCOUNTER 2017-12-06 09:24 | Outpatient (CLI) | payer MEDICARE, MEDICAID ==
--- NOTE | 2017-12-06 15:00 | NM ---
NUCLEAR MEDICINE BRAIN IMAGING: Date: 12/06/17 HISTORY: Vascular Parkinsonism. TECHNIQUE: A DaTscan with axial tomographic images of the brain obtained 3 hours following the intravenous admin istration of 4.6 mCi Iodine-123 Ioflupane. Due to patient's known iodine allergy, she was not pretrea miguel with potassium iodide. FINDINGS: There is normal, symmetric uptake in the striata bilaterally, demonstrating symmetric, crescent-shape d, focal regions of activity mirrored about the median plane in the caudate and putamen. IMPRESSION: Normal exam. POS: SAIGE
== END 2017-12-06 09:25 | disposition home or self-care (01) ==
LOC: NM 09:24
PROVIDERS: ATTEND Psychiatry & Neurology Neurology
DX: G21.4 Vascular parkinsonism (principal)
CPT/HCPCS: 78607; A9584

== ENCOUNTER 2018-06-29 11:51 | Inpatient (IN) | payer MEDICARE, MEDICAID ==
--- NOTE | 2018-06-29 12:27 | RAD ---
RIGHT HIP RADIOGRAPHS 2 VIEWS: Date: 06/29/18 PROVIDED CLINICAL HISTORY: Right hip pain status post injury. FINDINGS: No evidence for fracture or other acute osseous abnormality. If there is persistent clinical concern, conservative management and follow-up imaging are advised. IMPRESSION: As above. POS: SAIGE
[2018-06-29] MEDS ORDERED: Morphine 4 MG/ML VIAL ONE (12:45)
[2018-06-29] MEDS ORDERED: Ondansetron PF 4 MG/2 ML Vial ONE ×2 (12:45→20:13)
--- NOTE | 2018-06-29 13:24 | CT ---
CT BRAIN: DATE: 06/29/2018. PROVIDED CLINICAL HISTORY: Trauma. FINDINGS: Comparison 09/30/2017. The ventricular system is unchanged in size and morphology. Chronic microvasc ular ischemic changes are seen involving the cerebral white matter. There is no evidence for intracr anial hemorrhage or mass effect. The extracranial soft tissues and osseous structures demonstrate no acute abnormality. IMPRESSION: No evidence for intracranial hemorrhage or mass effect. POS: JODEE
--- NOTE | 2018-06-29 13:25 | CT ---
CT CERVICAL SPINE: DATE: 06/29/2018. PROVIDED CLINICAL HISTORY: Trauma. FINDINGS: Comparison 03/03/2017. Postoperative changes of ACDF involving C4 through C7. No evidence for hardwa re loosening or migration. No evidence for a fracture or traumatic subluxation. No prevertebral sof t tissue swelling apparent. Visualized lung apices appear clear. IMPRESSION: No evidence for a fracture or traumatic subluxation. POS: [facility]
--- NOTE | 2018-06-29 13:29 | CT ---
CT CHEST AND ABDOMEN AND PELVIS WITHOUT CONTRAST: 06/29/2018 PROVIDED CLINICAL HISTORY: Trauma. FINDINGS: The heart, pericardial, and great vessels are suboptimally evaluated in the absence of IV contrast. Vascular calcification, including coronary calcium, is seen. There is a small pericardial effusion. The lungs are free of significant opacity. No pleural fluid or pneumothorax apparent. The solid abdominal organs are suboptimally evaluated in the absence of IV contrast material. A 4 mm , nonobstructing, superior pole left renal calculus. Post cholecystectomy changes. Vascular calcifi cations. No bowel dilatation, inflammatory fat stranding, free fluid, or free air apparent. The osseous structures demonstrate no evidence for traumatic abnormality. Sagittal and coronal thora cic and lumbar spine reconstructions demonstrate normal spine alignment and maintenance of vertebral body heights. IMPRESSION: No evidence for traumatic abnormality involving the chest, abdomen, and pelvis. Limitations due to lack of intravenous contrast. Chronic findings as above. POS: JODEE
--- NOTE | 2018-06-29 14:14 | RAD ---
FOUR VIEWS RIGHT KNEE: Comparison: None. History: Right knee and hip pain. FINDINGS: Four views of the knee shows no evidence of acute fracture or dislocation. No degenerative changes ar e seen. No soft tissue swelling is present. IMPRESSION: No evidence of acute osseous abnormality. POS: [facility]
--- NOTE | 2018-06-29 14:16 | RAD ---
FOUR VIEWS LEFT KNEE: Comparison: None. History: Fall from a porch with left knee pain. FINDINGS: Four views of the left knee shows no evidence of acute fracture or dislocation. Patient is status pos t ORIF of a remote healed fracture or the patella. No knee effusion is seen. IMPRESSION: No evidence of acute osseous abnormality. POS: [facility]
[2018-06-29 14:20] LABS: #Eosinphils 0.3 thou/uL (0.0-0.7); #Lymphocytes 1.1 thou/uL (1.20-3.40); #Monocytes 0.6 thou/uL (0.11-0.59); %Basophils 0.1 % (0.0-1.0); %Eosinophils 2.6 % (0.0-10.0); %Lymphocytes 11.2 % (21.0-51.0); %Monocytes 6.3 % (0.0-10.0); %Neutrophils 79.7 % (42.0-75.0); Hemoglobin 13.5 g/dL (12.0-16.0); Mean Corpuscular HGB CONC 33.4 g/dL (32.0-36.0); Mean Corpuscular Hemoglobin 28.8 pg (27.0-31.0); Mean Corpuscular Volume 86.2 fL (78.0-98.0); Mean Platelet Volume 6.8 fL (7.4-10.4); Platelet Count 239 thou/uL (130-400); RBC Distribution Width 12.6 % (11.5-14.5); Red Blood Cell (RBC) Count 4.68 mill/uL (4.20-5.40)
[2018-06-29 14:50] LABS: ALT (SGPT) 10 U/L (8-55); AST (SGOT) 31 U/L (5-34); Albumin 4.1 g/dL (3.4-4.8); Alkaline Phosphatase 79 U/L (40-150); Anion Gap 14 mmol/L (10-20); BUN (Urea Nitrogen) 12 mg/dL (9.8-20.1); Bilirubin, Total 0.7 mg/dL (0.2-1.2); Calc. Creatinine Clearance 0 mL/min (70-130); Calcium 9.5 mg/dL (7.8-10.44); Carbon Dioxide 22 mmol/L (23-31); Chloride 105 mmol/L (98-107); Estimated GFR-MDRD 73; Globulin 3.5 g/dL (2.4-3.5); Glucose 148 mg/dL (83-110); Potassium 3.9 mmol/L (3.5-5.1); Protein, Total 7.6 g/dL (6.0-8.3); Sodium 137 mmol/L (136-145)
[2018-06-29 18:13] LABS: Troponin I 0.012 ng/mL (< 0.028)
[2018-06-29] MEDS ORDERED: Dextrose 50% Abboject 50 ML SYRINGE SLOW IVP PRN (19:07)
[2018-06-29] MEDS ORDERED: Dextrose 5% in Water 1,000 ML IV PRN (19:07)
[2018-06-29] MEDS ORDERED: Ondansetron PF 4 MG/2 ML Vial IVP PRN (19:07)
[2018-06-29] MEDS ORDERED: Guaifenesin DM 100-10/5 ML UDCUP PO PRN (19:07)
--- NOTE | 2018-06-29 19:42 | HP ---
REASON FOR ADMISSION: Syncope. HISTORY OF PRESENTING ILLNESS: The patient gives history of having gone to see her primary care physician this morning. She felt nauseated and thought she might faint at the primary care physician's office. She was given Gatorade and a candy. She felt better. She went home. She tried to get into the porch of her home and apparently fell backwards. She lost consciousness for a brief few seconds or so. Currently complains of generalized body aches. She has had complete trauma protocol x-rays and CAT scans done, which show no fractures. No complaints of chest pain or palpitation. No complaints of shortness of breath. The patient's current systolic blood pressure is around 88. She has had one episode of diarrhea here and is feeling a little nauseated with mild epigastric pain due to retching. No complaints of urinary frequency or urgency. No complaints of cough or expectoration. PAST MEDICAL AND SURGICAL HISTORY: Diabetes mellitus type 2, hypertension, Parkinson disease, dyslipidemia, prior C-spine surgery, herpetic neuralgia, GERD , upper endoscopy for esophageal stricture and dilatation, hysterectomy, bilateral salpingo-oophorectomy, appendectomy, left knee surgery, cholecystectomy, sigmoid colectomy, and tonsillectomy. CURRENT MEDICATIONS: Takes 1. Losartan 50 mg daily. 2. Glimepiride 2 mg daily. 3. Myrbetriq extended release 50 mg daily. 4. Zetia 10 mg daily. 5. Sinemet 25/100 mg one tab three times daily. 6. Albuterol inhaler q.6 hourly p.r.n. 7. Sertraline 50 mg daily. ALLERGIES: THE PATIENT IS ALLERGIC TO MULTIPLE MEDICATIONS INCLUDING ATORVASTATIN, CODEINE, CYMBALTA, GABAPENTIN, IODINE, LISINOPRIL, LYRICA, MEMANTINE, METFORMIN, PENICILLIN, PRAVASTATIN, SULFA, AND TAPE. PERSONAL HISTORY: Does not abuse alcohol or drugs. No history of smoking. FAMILY HISTORY: Mother at the age of 83 years. She has had history of stroke. She does not know much about her father. CODE STATUS: Full. Power of estate planning attorney is her daughter. REVIEW OF SYSTEMS: CONSTITUTIONAL: Negative for weight loss or gain, ability to conduct usual activities. SKIN: Negative for rash, itching. EYES: Negative for double vision, pain. ENT/MOUTH: Negative for nose bleeding, neck stiffness, pain, tenderness. CARDIOVASCULAR: Negative for palpitations, dyspnea on exertion, orthopnea. RESPIRATORY: Negative for shortness of breath, wheezing, cough, hemoptysis, fever or night sweats. GASTROINTESTINAL: Negative for poor appetite, abdominal pain, heartburn, nausea , vomiting, constipation, or diarrhea. GENITOURINARY: Negative for urgency, frequency, dysuria, nocturia. MUSCULOSKELETAL: Negative for pain, swelling. NEUROLOGIC/PSYCHIATRIC: Negative for anxiety, depression. ALLERGY/IMMUNOLOGIC: Negative for skin rash, bleeding tendency. PHYSICAL EXAMINATION: GENERAL: The patient is an 82-year-old female, who is currently not in any acute distress. VITAL SIGNS: Blood pressure 86/54, pulse 88 per minute, respiratory rate 18 per minute, temperature 97.9 degrees Fahrenheit, and saturating 95% on room air. NECK: Supple. No elevated JVD. EYES: Extraocular muscles intact. Pupils reacting to light. Oral cavity, mucous membranes are dry. No exudates or congestion. CARDIOVASCULAR: S1 and S2 heard. Regular rhythm. RESPIRATORY SYSTEM: Air entry 1+ bilateral. No rales or rhonchi. ABDOMEN: Soft. Bowel sounds heard. Mild tenderness in the epigastric area. No rigidity or guarding. Bowel sounds are heard. EXTREMITIES: Mild peripheral edema. No calf tenderness. VASCULAR SYSTEM: Peripheral pulses 1+ bilateral. No ischemic ulcerations or gangrene. CENTRAL NERVOUS SYSTEM: The patient moves all four extremities. No gross localizing sign seen. PSYCHIATRIC SYSTEM: The patient's mood is euthymic. No hallucinations or delusions. LABORATORY DATA: A prior echo done in the month of September shows ejection fraction of 55% to 60%. Mild diastolic dysfunction was seen. She has had trauma protocol bilateral knee x-rays; chest, abdomen, and pelvic CAT scan; C-spine CAT scan; CT brain, hip x-ray on the right side, none of which show any acute fractures or dislocations. White count of 10, H and H 13 and 40, platelet count 239 with 79% neutrophils, MCV is 86. Electrolytes stable. BUN 12, creatinine 0.7, serum glucose 148. Liver enzymes within normal limits. Troponin x2 is negative. Albumin is 4.1. EKG done shows normal sinus rhythm at 90 beats per minute. CLINICAL IMPRESSION AND PLAN: The patient will be under observation on telemetry for syncope likely due to orthostasis. We will obtain orthostatic blood pressures. She will be on normal saline at 100 mL/hour. We will hold her Cozaar for now. We will continue Sinemet, Myrbetriq, Zetia, Januvia, glimepiride, and sertraline as before. She will be closely monitored on the telemetry under observation. We will also obtain PT/OT evaluations. The patient normally walks with a walker inside the house. If the patient ambulates with no further syncopal episodes in the morning, she can be safely discharged home to follow up with her primary care physician in one week. Job ID: [id number] MTDD
[2018-06-29] MEDS ORDERED: Morphine 2 MG/ML SYRINGE ONE (20:13)
[2018-06-29] MEDS ORDERED: Morphine 4 MG/ML VIAL SLOW IVP PRN (20:18)
[2018-06-29 23:53] VITALS: BMI 33.8
[2018-06-30] MEDS: Sodium Chloride 0.9% 1,000 ML IV SCH ×2 (00:24→09:00)
[2018-06-30] MEDS: Amlodipine 10 MG TAB PO SCH ×2 (00:24→22:37)
[2018-06-30] MEDS: Famotidine 20 MG TAB PO SCH ×3 (00:24→22:38)
[2018-06-30] MEDS: Carbidopa/Levodopa 25-100 mg Tablet PO SCH ×4 (00:24→22:38)
[2018-06-30 04:54] LABS: #Eosinphils 0.1 thou/uL (0.0-0.7); #Lymphocytes 0.9 thou/uL (1.20-3.40); #Monocytes 0.6 thou/uL (0.11-0.59); #Neutrophils 6.9 thou/uL (1.40-6.50); %Basophils 0.3 % (0.0-1.0); %Eosinophils 1.4 % (0.0-10.0); %Lymphocytes 10.4 % (21.0-51.0); %Neutrophils 80.9 % (42.0-75.0); Hemoglobin 12.2 g/dL (12.0-16.0); Mean Corpuscular HGB CONC 33.7 g/dL (32.0-36.0); Mean Corpuscular Volume 86.1 fL (78.0-98.0); Mean Platelet Volume 6.8 fL (7.4-10.4); Platelet Count 247 thou/uL (130-400); RBC Distribution Width 12.7 % (11.5-14.5); Red Blood Cell (RBC) Count 4.22 mill/uL (4.20-5.40); White Blood Cell (WBC) Count 8.6 thou/uL (4.8-10.8)
[2018-06-30 05:06] LABS: Anion Gap 13 mmol/L (10-20); BUN (Urea Nitrogen) 15 mg/dL (9.8-20.1); Calc. Creatinine Clearance 75 mL/min (70-130); Calcium 9.2 mg/dL (7.8-10.44); Carbon Dioxide 26 mmol/L (23-31); Chloride 104 mmol/L (98-107); Estimated GFR-MDRD 64; Glucose 187 mg/dL (83-110); Potassium 3.9 mmol/L (3.5-5.1); Sodium 139 mmol/L (136-145)
[2018-06-30] MEDS: HumaLOG 300 UNITS/3 ML VIAL SC PRN ×2 (06:22→10:57)
[2018-06-30] MEDS: Enoxaparin Sodium 40 MG/0.4 ML SYRINGE SC SCH (08:57)
[2018-06-30] MEDS: Alogliptin 25 MG TAB PO SCH (08:58)
[2018-06-30] MEDS: Glimepiride 2 MG TAB PO SCH (08:59)
[2018-06-30] MEDS ORDERED: Promethazine HCl 25 MG/ML VIAL IM/IV STA (10:14)
[2018-06-30] MEDS ORDERED: Sodium Chloride 0.9% 250 ML 250 ML IVPB SCH (10:15)
[2018-06-30] MEDS ORDERED: Sodium Chloride 0.9% 500 ML IV SCH ×2 (10:15→14:00)
[2018-06-30] MEDS ORDERED: Sodium Chloride 0.9% 1,000 ML IV SCH (10:15)
--- NOTE | 2018-06-30 10:52 | PDOC.PN ---
- Subjective Encounter Start Date: 06/30/18 Encounter Start Time: 09:00 Subjective: c/o nausea and unable to eat her breakfast -: had 2 bm's this am -: no chest pain or sob or palp - Objective Resuscitation Status - Order Detail: 06/30/18 00:01 Resuscitation Status Routine Resuscitation Status: DNAR: NO Resuscitation Discussed with: advance directive on record and NURse MAR Reviewed: Yes Vital Signs & Weight: Vital Signs (12 hours) Temp Pulse Resp BP Pulse Ox 06/30/18 08:00 98.1 F 76 20 124/56 L 92 L 06/30/18 04:00 98.6 F 101 H 20 134/72 90 L Weight Weight 197 lb 1.6 oz Result Diagrams: 06/30/18 04:12 06/30/18 04:12 Additional Labs: Accuchecks 06/30/18 06/30/18 10:17 05:36 POC Glucose 220 H 174 H Phys Exam - Physical Examination HEENT: PERRLA, moist MMs Neck: no JVD, supple Respiratory: no wheezing, no rales Cardiovascular: RRR, no significant murmur Gastrointestinal: soft, non-tender, no distention, positive bowel sounds Musculoskeletal: no edema, pulses present Neurological: non-focal, moves all 4 limbs Psychiatric: normal affect, A&O x 3 Dx/Plan (1) Intractable nausea and vomiting Code(s): R11.2 - NAUSEA WITH VOMITING, UNSPECIFIED Status: Acute (2) Orthostasis Code(s): I95.1 - ORTHOSTATIC HYPOTENSION Status: Acute (3) Syncope Code(s): R55 - SYNCOPE AND COLLAPSE Status: Resolved (4) Dyslipidemia Code(s): E78.5 - HYPERLIPIDEMIA, UNSPECIFIED Status: Chronic (5) HTN (hypertension) Code(s): I10 - ESSENTIAL (PRIMARY) HYPERTENSION Status: Chronic Qualifiers: Hypertension type: essential hypertension (6) Obesity (BMI 30.0-34.9) Code(s): E66.9 - OBESITY, UNSPECIFIED Status: Chronic - Plan dc all opiods due to nausea -: one dose phenergan -: had ct chest/abd/pelvis yesterday with no bowel obstr/ac abnl -: bolus 500ml x1 for +ve orthostasis -: to ambulate with PT as tolerated * . May dc home this afternoon if she tolerate oral diet. Review of Systems - Medications/Allergies Allergies/Adverse Reactions: Allergies Allergy/AdvReac Type Severity Reaction Status Date / Time pregabalin [From Lyrica] Allergy Severe SWELLING Verified 06/30/18 00:49 shellfish derived Allergy Severe SWELLING Verified 06/30/18 00:49 codeine Allergy Intermediate N/V Verified 06/30/18 00:49 adhesive Allergy Verified 06/30/18 00:49 duloxetine HCl Allergy SWELLING Verified 06/30/18 00:49 [From Cymbalta] iodine Allergy Verified 06/30/18 00:49 lisinopril Allergy ? Verified 04/15/15 10:21 Penicillins Allergy Verified 06/30/18 00:49 [id number] Reductase Allergy PAIN Verified 06/30/18 00:49 Inhibitor ADHESIVES Allergy Intermediate Rash Uncoded 04/15/15 10:21 Medications: Current Medications Acetaminophen (Tylenol) 650 mg PO Q4H PRN PRN Reason: Headache/Fever/Mild Pain (1-3) Alogliptin Benzoate (Alogliptin) 25 mg PO DAILY [facility] Last Admin: 06/30/18 08:58 Dose: 25 mg Amlodipine Besylate (Norvasc) 10 mg PO HS [facility] Last Admin: 06/30/18 00:24 Dose: 10 mg Carbidopa/Levodopa (Sinemet 25-100) 1 tab PO TID [facility] Last Admin: 06/30/18 08:59 Dose: 1 tab Dextrose/Water (Dextrose 50%) 25 gm SLOW IVP PRN PRN PRN Reason: Hypoglycemia Enoxaparin Sodium (Lovenox) 40 mg SC 0900 [facility] Last Admin: 06/30/18 08:57 Dose: 40 mg Famotidine (Pepcid) 20 mg PO BID [facility] Last Admin: 06/30/18 09:00 Dose: 20 mg Glimepiride (Amaryl) 2 mg PO QAM-WM [facility] Last Admin: 06/30/18 08:59 Dose: 2 mg Glucagon (Glucagon) 1 mg IM PRN PRN PRN Reason: Hypoglycemia Guaifenesin/Dextromethorphan (Robitussin Dm) 15 ml PO Q4H PRN PRN Reason: Cough Dextrose/Water (D5w) 1,000 mls @ 0 mls/hr IV .Q0M PRN PRN Reason: Hypoglycemia Sodium Chloride (Normal Saline 0.9% 250 Ml Bag) 250 mls @ 0 mls/hr IVPB NOW DARLINE Stop: 06/30/18 12:15 Sodium Chloride (Normal Saline 0.9%) 1,000 mls @ 100 mls/hr IV .Q10H DARLINE Insulin Human Lispro (Humalog) 0 units SC .MODERATE SLIDING SC PRN PRN Reason: Moderate Correctional Scale Last Admin: 06/30/18 06:22 Dose: 2 unit Mirabegron (Myrbetriq Er) 50 mg PO DAILY [facility] Ondansetron HCl (Zofran) 4 mg IVP Q6H PRN PRN Reason: Nausea/Vomiting Last Admin: 06/30/18 06:23 Dose: 4 mg Sertraline HCl (Zoloft) 50 mg PO DAILY [facility] Last Admin: 06/30/18 08:59 Dose: 50 mg
[2018-06-30] MEDS: Acetaminophen 325 MG TAB PO PRN ×2 (10:57→22:38)
[2018-07-01] MEDS: Acetaminophen 325 MG TAB PO PRN ×4 (06:47→21:50)
[2018-07-01] MEDS: Alogliptin 25 MG TAB PO SCH (08:57)
[2018-07-01] MEDS: Glimepiride 2 MG TAB PO SCH (08:57)
[2018-07-01] MEDS: Enoxaparin Sodium 40 MG/0.4 ML SYRINGE SC SCH (08:58)
[2018-07-01] MEDS: Famotidine 20 MG TAB PO SCH (08:58)
[2018-07-01] MEDS: Carbidopa/Levodopa 25-100 mg Tablet PO SCH ×3 (08:58→21:44)
[2018-07-01] MEDS: HumaLOG 300 UNITS/3 ML VIAL SC PRN (12:06)
--- NOTE | 2018-07-01 12:41 | PDOC.PN ---
- Subjective Encounter Start Date: 07/01/18 (f/u syncope) Encounter Start Time: 12:39 Subjective: Pt c/o pain all over, was only able to sit on the side of the bed. -: Further hx - dysphagia for solids and liquids at least daily with r -: regurgiation at least once daily, poor PO take due to this - Objective Resuscitation Status - Order Detail: 06/30/18 00:01 Resuscitation Status Routine Resuscitation Status: DNAR: NO Resuscitation Discussed with: advance directive on record and NURse Vital Signs & Weight: Vital Signs (12 hours) Temp Pulse Pulse Resp BP BP BP 07/01/18 11:46 98.7 F 83 16 120/54 L 07/01/18 10:25 81 122/59 L 07/01/18 07:46 98.7 F 87 16 137/61 07/01/18 04:00 98.8 F 97 18 148/65 H Pulse Ox 07/01/18 11:46 95 07/01/18 10:25 07/01/18 07:46 94 L 07/01/18 04:00 Weight Weight 197 lb 1.6 oz I&O: 06/30/18 07/01/18 07/02/18 06:59 06:59 06:59 Intake Total 3152 260 Balance 3152 260 Result Diagrams: 06/30/18 04:12 06/30/18 04:12 Additional Labs: Accuchecks 07/01/18 07/01/18 06/30/18 10:49 06:49 22:45 POC Glucose 191 H 159 H 128 H 06/30/18 16:38 POC Glucose 130 H EKG Reviewed by me: Yes (tele - sinus 80's) Phys Exam - Physical Examination Constitutional: NAD Respiratory: no wheezing faint rales basilar Cardiovascular: RRR, no significant murmur Gastrointestinal: soft, no distention, positive bowel sounds Neurological: non-focal Psychiatric: normal affect, A&O x 3 Deviation from normal: answers questions appropriately Skin: no rash Dx/Plan (1) Dysphagia Code(s): R13.10 - DYSPHAGIA, UNSPECIFIED Status: Acute Qualifiers: Dysphagia type: unspecified Qualified Code(s): R13.10 - Dysphagia, unspecified (2) Diabetes mellitus Code(s): E11.9 - TYPE 2 DIABETES MELLITUS WITHOUT COMPLICATIONS Status: Chronic Qualifiers: Diabetes mellitus type: type 2 Diabetes mellitus local company intermodal truck driver insulin use: without local company intermodal truck driver use (3) Dyslipidemia Code(s): E78.5 - HYPERLIPIDEMIA, UNSPECIFIED Status: Chronic (4) HTN (hypertension) Code(s): I10 - ESSENTIAL (PRIMARY) HYPERTENSION Status: Chronic Qualifiers: Hypertension type: essential hypertension Qualified Code(s): I10 - Essential (primary) hypertension (5) Syncope Code(s): R55 - SYNCOPE AND COLLAPSE Status: Resolved - Plan * Presentation concerning for the following: * Dysphagia leading to poor PO intake which caused the syncopal event * over-medication for DM and HTN due to poor PO intake * uncontrolled pain, inability to walk - pt only able to sit on the side of the bed at this time and with fairly significant pain. She is unable to complete ADL's and is not a candidate for discharge to home * To address concerns: * GI consultation for consideration of EGD * d/c glimepiride, continue the gliptin and monitor blood sugars * decrease amlodipine to 5 mg at night, and hold losartan * address pain - will add low dose oxycodone prn for additional pain. Add scheduled and prn bowel meds to avoid constipation. * continue other home meds as ordered * anticipate pt will need inpatient rehab for weakness and deconditioning s/p fall from syncope * pt not safe for discharge, is at high risk of re-hospitalization and further decompensation if above not addressed. Changing to inpatient status for this - discussed with director of casework services. * * dvt prophy - scd's * gi prophy - not indicated * code status DNR * reviewed plan of care with nissa and her daughter. No questions or further needs at end of eval.
[2018-07-01] MEDS ORDERED: oxyCODONE 5 MG TAB PO PRN (12:46)
[2018-07-01] MEDS ORDERED: Polyethylene Glycol 3350 17 GM Packet PO PRN (12:47)
--- NOTE | 2018-07-01 19:30 | CON ---
DATE OF CONSULTATION: HISTORY OF PRESENT ILLNESS: The patient is an 82-year-old female, who was in her normal state of health until the day of admission when she developed some dizziness, subsequently had a syncopal episode and fell from her porch. She reports she has had several month up to 2 years history of intermittent problems with swallowing. She will become choked and occasionally has to bring the food back up. She has had this in the past and has undergone upper endoscopy and dilation. Her last treatment was several years ago according to family members. She denies any weight loss from this. Denies any melena or hematochezia. Denies any heartburn. She does report some occasional abdominal distention and bloating. PAST MEDICAL HISTORY: Significant for Parkinson's like neurologic disease, diabetes mellitus, hypertension, hyperlipidemia, gastroesophageal reflux, and a history of esophageal strictures. PAST SURGICAL HISTORY: Includes cervical spine surgery, hysterectomy, appendectomy, knee surgery, cholecystectomy, sigmoid colectomy, and tonsillectomy. MEDICATIONS: Prior to admission include; 1. Januvia 100 mg p.o. daily. 2. Zoloft 50 mg p.o. daily. 3. Cozaar 50 mg p.o. daily. 4. Mirabegron 50 mg p.o. daily. 5. Glimepiride 2 mg p.o. q.a.m. 6. Zetia 1 p.o. daily. 7. Vitamin D2. ALLERGIES: INCLUDE LYRICA, SHELLFISH, CODEINE, ADHESIVES, CYMBALTA, IODINE, LISINOPRIL, PENICILLIN, STATINS, AND ADHESIVES. SOCIAL HISTORY: She does not smoke or drink. FAMILY HISTORY: Negative for GI or liver disease. REVIEW OF SYSTEMS: CONSTITUTIONAL: No fever or chills. No weight loss. EYES: No blurred vision or double vision. ENT: No sore throat or earaches. CARDIOVASCULAR: No chest pain or palpitations. PULMONARY: No shortness of breath, cough, or wheezing. GI: See above. : No hematuria or dysuria. MUSCULOSKELETAL: No joint pain or muscle weakness. SKIN: No rashes. NEUROLOGIC: No numbness or seizure activity. PHYSICAL EXAMINATION: GENERAL: Shows a temperature of 99.1, pulse 88, respirations 17, and blood pressure 132/62. HEENT: Unremarkable. NECK: Supple. CHEST: Clear. CARDIOVASCULAR: Regular rate and rhythm without murmurs or gallops. ABDOMEN: Soft, obese, and nontender, without organomegaly or masses. RECTAL: Deferred. EXTREMITIES: Normal. NEUROLOGIC: Nonfocal. LABORATORY DATA: Laboratories shows normal CBC. Chemistries on admission show a glucose 148 and CO2 of 22. ASSESSMENT: 1. Dysphagia. 2. History of esophageal strictures. 3. Syncope. 4. Parkinson disease. RECOMMENDATIONS: Esophagogastroduodenoscopy with possible dilatation in a.m. Job ID: [id number]
[2018-07-01] MEDS: Amlodipine 10 MG TAB PO SCH (21:44)
[2018-07-01] MEDS: Docusate 100 MG CAP PO SCH (21:46)
[2018-07-02 05:43] LABS: Anion Gap 14 mmol/L (10-20); BUN (Urea Nitrogen) 9 mg/dL (9.8-20.1); Calc. Creatinine Clearance 82 mL/min (70-130); Calcium 9.2 mg/dL (7.8-10.44); Carbon Dioxide 26 mmol/L (23-31); Chloride 104 mmol/L (98-107); Estimated GFR-MDRD 72; Glucose 148 mg/dL (83-110); Potassium 3.7 mmol/L (3.5-5.1); Sodium 140 mmol/L (136-145)
--- NOTE | 2018-07-02 08:38 | PDOC.PN ---
- Subjective Encounter Start Date: 07/02/18 Encounter Start Time: 12:00 Subjective: Patient just back from EGD. Results unknown. Abdominal pain and bloating -: from the procedure, otherwise ok. - Objective Resuscitation Status - Order Detail: 06/30/18 00:01 Resuscitation Status Routine Resuscitation Status: DNAR: NO Resuscitation Discussed with: advance directive on record and NURse MAR Reviewed: Yes Vital Signs & Weight: Vital Signs (12 hours) Temp Pulse Resp BP BP Pulse Ox 07/02/18 07:36 98.6 F 93 18 142/71 H 93 L 07/02/18 04:00 98.8 F 95 19 124/59 L 97 07/02/18 00:00 98.8 F 94 19 140/61 94 L 07/01/18 21:44 89 133/60 Weight Weight 197 lb 1.6 oz I&O: 07/01/18 07/02/18 07/03/18 06:59 06:59 06:59 Intake Total 3152 1233 Balance 3152 1233 Result Diagrams: 06/30/18 04:12 07/02/18 04:48 Additional Labs: Accuchecks 07/02/18 07/01/18 07/01/18 06:00 19:52 16:35 POC Glucose 175 H 160 H 92 07/01/18 10:49 POC Glucose 191 H Phys Exam - Physical Examination Constitutional: NAD HEENT: moist MMs Respiratory: no wheezing, no rales, no rhonchi Cardiovascular: RRR, no significant murmur Gastrointestinal: soft, positive bowel sounds distended, mild TTP diffusely without guarding or rebound Neurological: non-focal, moves all 4 limbs Psychiatric: normal affect, A&O x 3 Dx/Plan (1) Dysphagia Code(s): R13.10 - DYSPHAGIA, UNSPECIFIED Status: Acute Qualifiers: Dysphagia type: unspecified Qualified Code(s): R13.10 - Dysphagia, unspecified Comment: EGD with esophageal dilatation this morning, a bit sore after the procedure, will give some simethicone and Zofran (2) Intractable nausea and vomiting Code(s): R11.2 - NAUSEA WITH VOMITING, UNSPECIFIED Status: Acute (3) Orthostasis Code(s): I95.1 - ORTHOSTATIC HYPOTENSION Status: Acute Comment: likely due to poor po intake and Parkinson's (4) Diabetes mellitus Code(s): E11.9 - TYPE 2 DIABETES MELLITUS WITHOUT COMPLICATIONS Status: Chronic Qualifiers: Diabetes mellitus type: type 2 Diabetes mellitus assisted insulin use: without terminal computer operator use (5) Dyslipidemia Code(s): E78.5 - HYPERLIPIDEMIA, UNSPECIFIED Status: Chronic (6) HTN (hypertension) Code(s): I10 - ESSENTIAL (PRIMARY) HYPERTENSION Status: Chronic Qualifiers: Hypertension type: essential hypertension Qualified Code(s): I10 - Essential (primary) hypertension (7) Obesity (BMI 30.0-34.9) Code(s): E66.9 - OBESITY, UNSPECIFIED Status: Chronic (8) Syncope Code(s): R55 - SYNCOPE AND COLLAPSE Status: Resolved (9) Parkinson's disease Code(s): G20 - PARKINSON'S DISEASE Status: Chronic - Plan cont current plan of care, PT/OT Rehab eval and then d/c to SNF/rehab when arranged. * . - Discharge Day Encounter end time: 11:30 Pulmonology Consult: Meds - Medications MAR Reviewed: Yes Medications: Current Medications Acetaminophen (Tylenol) 650 mg PO Q4H PRN PRN Reason: Headache/Fever/Mild Pain (1-3) Last Admin: 07/01/18 21:50 Dose: 650 mg Alogliptin Benzoate (Alogliptin) 25 mg PO DAILY [facility] Last Admin: 07/01/18 08:57 Dose: 25 mg Amlodipine Besylate (Norvasc) 5 mg PO HS [facility] Last Admin: 07/01/18 21:44 Dose: 5 mg Carbidopa/Levodopa (Sinemet 25-100) 1 tab PO TID [facility] Last Admin: 07/01/18 21:44 Dose: 1 tab Dextrose/Water (Dextrose 50%) 25 gm SLOW IVP PRN PRN PRN Reason: Hypoglycemia Docusate Sodium (Colace) 100 mg PO BID [facility] Last Admin: 07/01/18 21:46 Dose: Not Given Enoxaparin Sodium (Lovenox) 40 mg SC 0900 [facility] Last Admin: 07/01/18 08:58 Dose: 40 mg Glucagon (Glucagon) 1 mg IM PRN PRN PRN Reason: Hypoglycemia Guaifenesin/Dextromethorphan (Robitussin Dm) 15 ml PO Q4H PRN PRN Reason: Cough Dextrose/Water (D5w) 1,000 mls @ 0 mls/hr IV .Q0M PRN PRN Reason: Hypoglycemia Insulin Human Lispro (Humalog) 0 units SC .MODERATE SLIDING SC PRN PRN Reason: Moderate Correctional Scale Last Admin: 07/01/18 12:06 Dose: 2 unit Mirabegron (Myrbetriq Er) 50 mg PO DAILY [facility] Last Admin: 07/01/18 09:02 Dose: 50 mg Ondansetron HCl (Zofran) 4 mg IVP Q6H PRN PRN Reason: Nausea/Vomiting Last Admin: 06/30/18 06:23 Dose: 4 mg Polyethylene Glycol (Miralax) 17 gm PO DAILYPRN PRN PRN Reason: Constipation Sertraline HCl (Zoloft) 50 mg PO DAILY [facility] Last Admin: 07/01/18 08:58 Dose: 50 mg - Allergies Allergies/Adverse Reactions: Allergies Allergy/AdvReac Type Severity Reaction Status Date / Time pregabalin [From Lyrica] Allergy Severe SWELLING Verified 06/30/18 00:49 shellfish derived Allergy Severe SWELLING Verified 06/30/18 00:49 codeine Allergy Intermediate N/V Verified 06/30/18 00:49 adhesive Allergy Verified 06/30/18 00:49 duloxetine HCl Allergy SWELLING Verified 06/30/18 00:49 [From Cymbalta] iodine Allergy Verified 06/30/18 00:49 lisinopril Allergy ? Verified 04/15/15 10:21 Penicillins Allergy Verified 06/30/18 00:49 Njitmpe-Yvr-[id number] Reductase Allergy PAIN Verified 06/30/18 00:49 Inhibitor ADHESIVES Allergy Intermediate Rash Uncoded 04/15/15 10:21
[2018-07-02] MEDS: Alogliptin 25 MG TAB PO SCH (09:14)
[2018-07-02] MEDS: Docusate 100 MG CAP PO SCH ×2 (09:14→20:21)
[2018-07-02] MEDS: Carbidopa/Levodopa 25-100 mg Tablet PO SCH ×3 (09:14→20:22)
[2018-07-02] MEDS ORDERED: Ondansetron HCl/PF 4 MG/2 ML Vial IVP PRN (12:04)
[2018-07-02] MEDS ORDERED: Promethazine HCl 25 MG/ML VIAL SLOW IVP PRN (12:04)
[2018-07-02] MEDS ORDERED: Promethazine HCl 25 MG/ML VIAL IM PRN (12:04)
[2018-07-02] MEDS ORDERED: Simethicone Chewable 80 MG TAB PO PRN (12:59)
[2018-07-02] MEDS: Enoxaparin Sodium 40 MG/0.4 ML SYRINGE SC SCH (13:10)
[2018-07-02] MEDS: Ondansetron ODT 4 MG TAB PO PRN (13:28)
[2018-07-02] MEDS ORDERED: PROPOFOL 200 MG/20 ML VIAL ONE (16:53)
[2018-07-02] MEDS ORDERED: Lidocaine 1% PF 5 ML VIAL ONE (16:53)
[2018-07-02] MEDS: Amlodipine 10 MG TAB PO SCH (20:22)
--- NOTE | 2018-07-03 07:39 | OP ---
DATE OF PROCEDURE: 07/02/2018 PREOPERATIVE DIAGNOSIS: Dysphagia. DESCRIPTION OF PROCEDURE: After informed consent was obtained, the patient was placed in the left lateral decubitus position. Anesthesia was administered per the Anesthesia Department. Forward-viewing endoscope was inserted into esophagus under direct visualization with ease and passed to the second portion of the duodenum with ease. Second portion of duodenum and duodenal bulb were normal. Pylorus, antrum, body, fundus, and cardia were normal except for small 5 mm polyp that was biopsied at the cardia. A 54-Chinese Goldsmith dilator was passed with minimal resistance. Post insertion of the endoscope showed some post dilatation changes at the gastroesophageal junction at 20 cm from the incisors. ASSESSMENT: 1. Esophageal strictures x2-status post Goldsmith dilatation. 2. Small gastric cardia polyp-status post biopsy. RECOMMENDATIONS: 1. Await histopathology. 2. Resume diet. Job ID: [id number]
--- NOTE | 2018-07-03 10:00 | PDOC.PN ---
- Subjective Encounter Start Date: 07/03/18 Encounter Start Time: 11:00 Subjective: Patient was a little confused on waking this AM, completely oriented now. -: No further abdominal pain. No N/V. - Objective Resuscitation Status - Order Detail: 06/30/18 00:01 Resuscitation Status Routine Resuscitation Status: DNAR: NO Resuscitation Discussed with: advance directive on record and NURse MAR Reviewed: Yes Vital Signs & Weight: Vital Signs (12 hours) Temp Pulse Resp BP BP BP Pulse Ox 07/03/18 07:46 98.0 F 82 20 138/76 97 07/03/18 05:50 96 126/78 127/66 07/03/18 04:00 98.2 F 86 16 131/76 95 07/03/18 01:00 98.0 F 94 18 133/62 97 Weight Weight 197 lb 1.6 oz I&O: 07/02/18 07/03/18 07/04/18 06:59 06:59 06:59 Intake Total 1233 300 Balance 1233 300 Result Diagrams: 06/30/18 04:12 07/02/18 04:48 Additional Labs: Accuchecks 07/03/18 07/02/18 07/02/18 04:22 19:29 17:25 POC Glucose 158 H 155 H 115 H Phys Exam - Physical Examination Constitutional: NAD HEENT: moist MMs Respiratory: no wheezing, no rales, no rhonchi Cardiovascular: RRR, no significant murmur Gastrointestinal: soft, positive bowel sounds Neurological: non-focal, moves all 4 limbs Psychiatric: normal affect, A&O x 3 Dx/Plan (1) Dysphagia Code(s): R13.10 - DYSPHAGIA, UNSPECIFIED Status: Acute Qualifiers: Dysphagia type: unspecified Qualified Code(s): R13.10 - Dysphagia, unspecified Comment: EGD with esophageal dilatation done 07/02 (2) Intractable nausea and vomiting Code(s): R11.2 - NAUSEA WITH VOMITING, UNSPECIFIED Status: Acute (3) Orthostasis Code(s): I95.1 - ORTHOSTATIC HYPOTENSION Status: Acute Comment: likely due to poor po intake and Parkinson's (4) Diabetes mellitus Code(s): E11.9 - TYPE 2 DIABETES MELLITUS WITHOUT COMPLICATIONS Status: Chronic Qualifiers: Diabetes mellitus type: type 2 Diabetes mellitus police service technician insulin use: without police service technician use (5) Dyslipidemia Code(s): E78.5 - HYPERLIPIDEMIA, UNSPECIFIED Status: Chronic (6) HTN (hypertension) Code(s): I10 - ESSENTIAL (PRIMARY) HYPERTENSION Status: Chronic Qualifiers: Hypertension type: essential hypertension Qualified Code(s): I10 - Essential (primary) hypertension (7) Obesity (BMI 30.0-34.9) Code(s): E66.9 - OBESITY, UNSPECIFIED Status: Chronic (8) Syncope Code(s): R55 - SYNCOPE AND COLLAPSE Status: Resolved (9) Parkinson's disease Code(s): G20 - PARKINSON'S DISEASE Status: Chronic - Plan cont current plan of care, PT/OT rehab evaluation * . - Discharge Day Encounter end time: 11:10
[2018-07-03] MEDS: Carbidopa/Levodopa 25-100 mg Tablet PO SCH ×3 (10:40→20:13)
[2018-07-03] MEDS: Alogliptin 25 MG TAB PO SCH (10:41)
[2018-07-03] MEDS: Enoxaparin Sodium 40 MG/0.4 ML SYRINGE SC SCH (10:41)
[2018-07-03] MEDS: Docusate 100 MG CAP PO SCH ×2 (10:42→20:13)
--- NOTE | 2018-07-03 17:54 | PRG ---
DATE OF SERVICE: 07/03/2018 SUBJECTIVE: The patient is feeling well. As far as her swallowing is concerned, she is having no problems with food hanging up or other complaints. OBJECTIVE: VITAL SIGNS: Temperature 98.8, pulse 89, respiratory rate 20, blood pressure 136/77. HEENT: Unremarkable. CHEST: Clear. CARDIOVASCULAR: Regular rate and rhythm without murmurs or gallops. ABDOMEN: Benign. LABORATORY DATA: Pathology showed a gastric polyp to be a hyperplastic polyp. ASSESSMENT: Esophageal stricture - status post dilatation. RECOMMENDATIONS: 1. Repeat dilatations as needed. 2. Continue soft diet. 3. We will sign off. Job ID: [id number]
[2018-07-03] MEDS: Acetaminophen 325 MG TAB PO PRN (18:25)
[2018-07-03] MEDS: Amlodipine 10 MG TAB PO SCH (20:11)
[2018-07-04 07:15] LABS: #Eosinphils 0.5 thou/uL (0.0-0.7); #Lymphocytes 0.8 thou/uL (1.20-3.40); #Monocytes 0.7 thou/uL (0.11-0.59); #Neutrophils 3.9 thou/uL (1.40-6.50); %Basophils 0.4 % (0.0-1.0); %Eosinophils 8.7 % (0.0-10.0); %Lymphocytes 13.9 % (21.0-51.0); %Monocytes 11.1 % (0.0-10.0); %Neutrophils 65.9 % (42.0-75.0); Mean Corpuscular HGB CONC 33.2 g/dL (32.0-36.0); Mean Corpuscular Hemoglobin 28.8 pg (27.0-31.0); Mean Corpuscular Volume 86.8 fL (78.0-98.0); Mean Platelet Volume 7.5 fL (7.4-10.4); Platelet Count 249 thou/uL (130-400); RBC Distribution Width 12.5 % (11.5-14.5); Red Blood Cell (RBC) Count 4.17 mill/uL (4.20-5.40); White Blood Cell (WBC) Count 5.9 thou/uL (4.8-10.8)
[2018-07-04 07:32] LABS: Anion Gap 14 mmol/L (10-20); BUN (Urea Nitrogen) 13 mg/dL (9.8-20.1); Calc. Creatinine Clearance 96 mL/min (70-130); Calcium 9.1 mg/dL (7.8-10.44); Carbon Dioxide 24 mmol/L (23-31); Chloride 105 mmol/L (98-107); Estimated GFR-MDRD 86; Glucose 156 mg/dL (83-110); Potassium 3.9 mmol/L (3.5-5.1); Sodium 139 mmol/L (136-145)
--- NOTE | 2018-07-04 08:24 | PDOC.PN ---
- Subjective Encounter Start Date: 07/04/18 Encounter Start Time: 10:10 Subjective: Patient having some urge to defecate, on bedpan now. No other complaints. -: No N/V. Eating better. - Objective Resuscitation Status - Order Detail: 06/30/18 00:01 Resuscitation Status Routine Resuscitation Status: DNAR: NO Resuscitation Discussed with: advance directive on record and NURse MAR Reviewed: Yes Vital Signs & Weight: Vital Signs (12 hours) Temp Pulse Resp BP BP Pulse Ox 07/04/18 08:09 98.1 F 70 18 118/72 96 07/04/18 04:00 98.1 F 84 21 H 136/67 96 07/04/18 00:00 98.1 F 84 16 134/76 96 Weight Weight 197 lb 1.6 oz I&O: 07/03/18 07/04/18 07/05/18 06:59 06:59 06:59 Intake Total 300 Balance 300 Result Diagrams: 07/04/18 06:52 07/04/18 06:52 Additional Labs: Accuchecks 07/04/18 07/03/18 07/03/18 06:52 21:00 16:53 POC Glucose 153 H 165 H 120 H 07/03/18 11:22 POC Glucose 208 H Phys Exam - Physical Examination Constitutional: NAD HEENT: moist MMs Respiratory: no wheezing, no rales, no rhonchi Cardiovascular: RRR, no significant murmur Gastrointestinal: soft, non-tender, positive bowel sounds Neurological: non-focal Psychiatric: normal affect, A&O x 3 Dx/Plan (1) Dysphagia Code(s): R13.10 - DYSPHAGIA, UNSPECIFIED Status: Acute Qualifiers: Dysphagia type: unspecified Qualified Code(s): R13.10 - Dysphagia, unspecified Comment: EGD with esophageal dilatation done 07/02 (2) Intractable nausea and vomiting Code(s): R11.2 - NAUSEA WITH VOMITING, UNSPECIFIED Status: Acute (3) Orthostasis Code(s): I95.1 - ORTHOSTATIC HYPOTENSION Status: Acute Comment: likely due to poor po intake and Parkinson's (4) Diabetes mellitus Code(s): E11.9 - TYPE 2 DIABETES MELLITUS WITHOUT COMPLICATIONS Status: Chronic Qualifiers: Diabetes mellitus type: type 2 Diabetes mellitus long-term insulin use: without manager intermediate use (5) Dyslipidemia Code(s): E78.5 - HYPERLIPIDEMIA, UNSPECIFIED Status: Chronic (6) HTN (hypertension) Code(s): I10 - ESSENTIAL (PRIMARY) HYPERTENSION Status: Chronic Qualifiers: Hypertension type: essential hypertension Qualified Code(s): I10 - Essential (primary) hypertension (7) Obesity (BMI 30.0-34.9) Code(s): E66.9 - OBESITY, UNSPECIFIED Status: Chronic (8) Syncope Code(s): R55 - SYNCOPE AND COLLAPSE Status: Resolved (9) Parkinson's disease Code(s): G20 - PARKINSON'S DISEASE Status: Chronic - Plan cont current plan of care, PT/OT D/C to rehab once approved * . - Discharge Day Encounter end time: 10:30
[2018-07-04] MEDS: Enoxaparin Sodium 40 MG/0.4 ML SYRINGE SC SCH (09:40)
[2018-07-04] MEDS: Carbidopa/Levodopa 25-100 mg Tablet PO SCH ×3 (09:40→20:28)
[2018-07-04] MEDS: Alogliptin 25 MG TAB PO SCH (09:40)
[2018-07-04] MEDS: Docusate 100 MG CAP PO SCH ×2 (09:40→20:30)
[2018-07-04] MEDS: Acetaminophen 325 MG TAB PO PRN ×2 (09:48→20:36)
[2018-07-04] MEDS: Amlodipine 10 MG TAB PO SCH (20:28)
--- NOTE | 2018-07-05 09:06 | PDOC.PN ---
- Subjective Encounter Start Date: 07/05/18 Encounter Start Time: 10:40 Subjective: Patient eating a little better. Still dizzy with standing, but was able to -: walk 7 feet. Abdominal symptoms improved. - Objective Resuscitation Status - Order Detail: 06/30/18 00:01 Resuscitation Status Routine Resuscitation Status: DNAR: NO Resuscitation Discussed with: advance directive on record and NURse MAR Reviewed: Yes Vital Signs & Weight: Vital Signs (12 hours) Temp Pulse Resp BP Pulse Ox 07/05/18 07:31 98.8 F 89 16 128/76 93 L 07/05/18 04:47 98.3 F 78 16 132/79 92 L 07/05/18 01:38 97.8 F 86 16 124/58 L 94 L Weight Weight 197 lb 1.6 oz I&O: 07/04/18 07/05/18 07/06/18 06:59 06:59 06:59 Intake Total 1810 Balance 1810 Result Diagrams: 07/04/18 06:52 07/04/18 06:52 Additional Labs: Accuchecks 07/05/18 07/04/18 07/04/18 04:44 16:22 11:42 POC Glucose 118 H 109 117 H Phys Exam - Physical Examination Constitutional: NAD HEENT: moist MMs Respiratory: no wheezing, no rales, no rhonchi Cardiovascular: RRR, no significant murmur Gastrointestinal: soft, positive bowel sounds diffuse mild TTP, no guarding Neurological: non-focal, moves all 4 limbs Psychiatric: normal affect, A&O x 3 Dx/Plan (1) Dysphagia Code(s): R13.10 - DYSPHAGIA, UNSPECIFIED Status: Acute Qualifiers: Dysphagia type: unspecified Qualified Code(s): R13.10 - Dysphagia, unspecified Comment: EGD with esophageal dilatation done 07/02 (2) Intractable nausea and vomiting Code(s): R11.2 - NAUSEA WITH VOMITING, UNSPECIFIED Status: Resolved (3) Orthostasis Code(s): I95.1 - ORTHOSTATIC HYPOTENSION Status: Acute Comment: likely due to poor po intake and Parkinson's, still quite orthostatic with standing but symptoms have improved, hope they will improve further with better po intake (4) Diabetes mellitus Code(s): E11.9 - TYPE 2 DIABETES MELLITUS WITHOUT COMPLICATIONS Status: Chronic Qualifiers: Diabetes mellitus type: type 2 Diabetes mellitus snf insulin use: without snf use (5) Dyslipidemia Code(s): E78.5 - HYPERLIPIDEMIA, UNSPECIFIED Status: Chronic (6) HTN (hypertension) Code(s): I10 - ESSENTIAL (PRIMARY) HYPERTENSION Status: Chronic Qualifiers: Hypertension type: essential hypertension Qualified Code(s): I10 - Essential (primary) hypertension (7) Obesity (BMI 30.0-34.9) Code(s): E66.9 - OBESITY, UNSPECIFIED Status: Chronic (8) Syncope Code(s): R55 - SYNCOPE AND COLLAPSE Status: Resolved (9) Parkinson's disease Code(s): G20 - PARKINSON'S DISEASE Status: Chronic - Plan cont current plan of care, PT/OT awaiting rehab approval * . - Discharge Day Encounter end time: 10:50
[2018-07-05] MEDS: Enoxaparin Sodium 40 MG/0.4 ML SYRINGE SC SCH (10:19)
[2018-07-05] MEDS: Docusate 100 MG CAP PO SCH ×2 (10:20→20:14)
[2018-07-05] MEDS: Carbidopa/Levodopa 25-100 mg Tablet PO SCH ×3 (10:20→20:14)
[2018-07-05] MEDS: Alogliptin 25 MG TAB PO SCH (10:20)
[2018-07-05] MEDS: Acetaminophen 325 MG TAB PO PRN (16:51)
[2018-07-05] MEDS: Amlodipine 10 MG TAB PO SCH (20:15)
--- NOTE | 2018-07-06 07:51 | PDOC.PN ---
- Subjective Encounter Start Date: 07/06/18 Encounter Start Time: 10:40 Subjective: Patient ambulating a bit, but still gets very dizzy and nauseated with -: getting up. Back sore from her fall. Abdominal pain coming and going- -: chronic. - Objective Resuscitation Status - Order Detail: 06/30/18 00:01 Resuscitation Status Routine Resuscitation Status: DNAR: NO Resuscitation Discussed with: advance directive on record and NURse MAR Reviewed: Yes Vital Signs & Weight: Vital Signs (12 hours) Temp Pulse Resp BP BP BP Pulse Ox 07/06/18 06:55 98.2 F 89 17 141/79 H 94 L 07/06/18 05:20 98.1 F 71 18 149/78 H 93 L 07/06/18 00:09 98 F 71 18 130/68 93 L 07/05/18 20:15 76 127/81 07/05/18 20:00 95 Weight Weight 197 lb 1.6 oz I&O: 07/05/18 07/06/18 07/07/18 06:59 06:59 06:59 Intake Total 1810 1610 Balance 1810 1610 Result Diagrams: 07/04/18 06:52 07/04/18 06:52 Additional Labs: Accuchecks 07/06/18 07/05/18 07/05/18 04:18 20:31 17:03 POC Glucose 137 H 149 H 122 H 07/05/18 11:16 POC Glucose 165 H Phys Exam - Physical Examination Constitutional: NAD HEENT: moist MMs Respiratory: no wheezing, no rales, no rhonchi Cardiovascular: RRR, no significant murmur Gastrointestinal: soft, positive bowel sounds mild TTP diffusely, no masses, no guarding Neurological: non-focal, moves all 4 limbs Psychiatric: normal affect, A&O x 3 Dx/Plan (1) Dysphagia Code(s): R13.10 - DYSPHAGIA, UNSPECIFIED Status: Resolved Qualifiers: Dysphagia type: unspecified Qualified Code(s): R13.10 - Dysphagia, unspecified Comment: EGD with esophageal dilatation done 07/02 (2) Intractable nausea and vomiting Code(s): R11.2 - NAUSEA WITH VOMITING, UNSPECIFIED Status: Resolved (3) Orthostasis Code(s): I95.1 - ORTHOSTATIC HYPOTENSION Status: Acute Comment: likely due to poor po intake and Parkinson's, still quite orthostatic with standing but symptoms have improved, hope they will improve further with better po intake though this may be progression of her Parkinson's (4) Diabetes mellitus Code(s): E11.9 - TYPE 2 DIABETES MELLITUS WITHOUT COMPLICATIONS Status: Chronic Qualifiers: Diabetes mellitus type: type 2 Diabetes mellitus fpc insulin use: without longwall headgate operator use (5) Dyslipidemia Code(s): E78.5 - HYPERLIPIDEMIA, UNSPECIFIED Status: Chronic (6) HTN (hypertension) Code(s): I10 - ESSENTIAL (PRIMARY) HYPERTENSION Status: Chronic Qualifiers: Hypertension type: essential hypertension Qualified Code(s): I10 - Essential (primary) hypertension (7) Obesity (BMI 30.0-34.9) Code(s): E66.9 - OBESITY, UNSPECIFIED Status: Chronic (8) Syncope Code(s): R55 - SYNCOPE AND COLLAPSE Status: Resolved (9) Parkinson's disease Code(s): G20 - PARKINSON'S DISEASE Status: Chronic - Plan cont current plan of care, PT/OT rehab denied, will need SNF * . - Discharge Day Encounter end time: 10:50
[2018-07-06] MEDS: Enoxaparin Sodium 40 MG/0.4 ML SYRINGE SC SCH (08:04)
[2018-07-06] MEDS: Docusate 100 MG CAP PO SCH ×2 (08:05→20:19)
[2018-07-06] MEDS: Alogliptin 25 MG TAB PO SCH (08:05)
[2018-07-06] MEDS: Carbidopa/Levodopa 25-100 mg Tablet PO SCH ×3 (08:05→20:18)
[2018-07-06] MEDS: Acetaminophen 325 MG TAB PO PRN (08:08)
[2018-07-06] MEDS: HumaLOG 300 UNITS/3 ML VIAL SC PRN (11:55)
[2018-07-06] MEDS: Amlodipine 10 MG TAB PO SCH (20:18)
[2018-07-07] MEDS: Docusate 100 MG CAP PO SCH ×3 (08:28→21:32)
[2018-07-07] MEDS: Alogliptin 25 MG TAB PO SCH (08:28)
[2018-07-07] MEDS: Carbidopa/Levodopa 25-100 mg Tablet PO SCH ×3 (08:28→21:38)
[2018-07-07] MEDS: Enoxaparin Sodium 40 MG/0.4 ML SYRINGE SC SCH (08:28)
[2018-07-07] MEDS: Ondansetron ODT 4 MG TAB PO PRN (08:29)
[2018-07-07] MEDS ORDERED: HYDROcodone/Acetaminophen 5/325 mg Tablet PO SCH (08:30)
--- NOTE | 2018-07-07 08:51 | PRG ---
DATE OF SERVICE: 07/07/2018 SUBJECTIVE: The patient is seen and examined at bedside. She complains about the pain in her lumbar spine. This is from the fall she took prior to this hospitalization and also she is reporting about some nausea. OBJECTIVE: VITAL SIGNS: Blood pressure is 141/59, pulse is 86, respiratory rate is 20, O2 saturation 94% on room air, temperature is 98.1. HEENT: Head is atraumatic and normocephalic. Eyes are PERRLA. Sclerae nonicteric. Oral mucosa is moist. NECK: Supple. LUNGS: Clear. HEART: S1 and S2 normal. No S3. No S4. No any murmur. ABDOMEN: Obese, soft, nontender. EXTREMITIES: No clubbing, cyanosis, or edema. NEUROLOGICAL: She follows my commands. She moves her all four extremities. There is no any motor or sensory deficits. She has pain to palpation in the lumbar spine area. SKIN: No rash or erythema. LABORATORY DATA: Glycemia is ranging from 147 to 152. IMPRESSION: 1. Lumbar spine area pain, status post fall, rule out acute fracture with CT without contrast. 2. Diabetes mellitus, chronic. 3. Orthostasis with hypotension. 4. Parkinson disease, chronic. 5. Syncope. 6. Obesity. 7. Dyslipidemia. 8. Intractable nausea and vomiting. 9. Dysphagia. The patient had esophageal dilatation done on the 02 of July. PLAN: Plan is to do the CT of her lumbar spine to rule out fracture from trauma. We will use some Zofran, use some Vicodin for the pain, and apparently she is denied by the insurance for rehab transfer, so we will try to obtain senior care facility placement and for now, we will continue her current regimen with DVT prophylaxis and blood pressure medications. Job ID: [id number]
--- NOTE | 2018-07-07 09:19 | CT ---
CT LUMBAR SPINE WITHOUT CONTRAST: Date: 07/07/18 PROVIDED CLINICAL HISTORY: Back pain. FINDINGS: Comparison made with the study dated 06/29/18. Five non-rib bearing lumbar-type vertebral bodies are present. Lumbar alignment appears normal. Lumba r vertebral body heights appear preserved. Interval development of minimal superior end plate ole evin deformity of T12. No additional fracture is evident. Vascular calcifications are seen. Broad bas ed disc osteophyte complex and bilateral facet arthritis at L5-S1 produce bilateral foraminal narrowi ng. Broad based disc bulge and bilateral facet arthritis at L4-5 produce the potential for moderate c entral canal stenosis. No additional significant central canal or foraminal narrowing is apparent by CT. IMPRESSION: 1. Interval development of mild superior end plate compression deformity involving T12. 2. Lumbar spine degenerative change. POS: SAIGE
[2018-07-07] MEDS: HYDROcodone/Acetaminophen 5/325 mg Tablet PO PRN (18:39)
[2018-07-07] MEDS: Amlodipine 10 MG TAB PO SCH (21:32)
[2018-07-08] MEDS: HYDROcodone/Acetaminophen 5/325 mg Tablet PO PRN ×3 (06:51→21:57)
[2018-07-08] MEDS: Carbidopa/Levodopa 25-100 mg Tablet PO SCH ×3 (08:10→21:56)
[2018-07-08] MEDS: Alogliptin 25 MG TAB PO SCH (08:10)
[2018-07-08] MEDS: Docusate 100 MG CAP PO SCH ×2 (08:11→21:58)
[2018-07-08] MEDS: Enoxaparin Sodium 40 MG/0.4 ML SYRINGE SC SCH (08:11)
[2018-07-08] MEDS ORDERED: Polyethylene Glycol 3350 17 GM Packet PO SCH (09:15)
--- NOTE | 2018-07-08 10:14 | PRG ---
DATE OF SERVICE: 07/08/2018 SUBJECTIVE: The patient is seen and examined at bedside. She is feeling significantly better. Her back pain improved after she received Vicodin for the pain. OBJECTIVE: VITAL SIGNS: Blood pressure is 121/70, pulse is 73, temperature is 98.2, O2 saturation is 92% to 95% on room air, and her respirations are 20 times per minute. HEENT: Head is atraumatic and normocephalic. Eyes are PERRLA. Sclerae are nonicteric. Oral mucosa is moist. NECK: Supple. No lymphadenopathy. Thyroid is not palpable. LUNGS: Clear. HEART: S1 and S2 normal. No S3. No S4. ABDOMEN: Obese, soft, mildly tender in the left epigastric area. No guarding. No masses. EXTREMITIES: No clubbing, cyanosis, or edema. NEUROLOGICAL: She is alert and oriented x3. There are no motor or sensory deficits present. Cranial nerves are intact. LABORATORY DATA: Glycemia is ranging from [address] showed interval development of mild superior endplate compression deformity involving T12 along with lumbar spine degenerative changes. IMPRESSION: 1. T12 compression fracture status post fall. 2. Diabetes mellitus, chronic. 3. Orthostasis with hypotension, improved. 4. Parkinson disease, chronic, stable. 5. Syncope. 6. Obesity. 7. Dyslipidemia. 8. Intractable nausea and vomiting. 9. Dysphagia. The patient had esophageal dilatation done on July 02. PLAN: The patient was started on Vicodin q.4 hours p.r.n. for the pain in her back. The CT identified some fracture of T12 that is very likely secondary to the fall and trauma. She will continue on pain management. She will continue on PT, and we will try to get her into [facility] for more physical therapy and pain management. Job ID: [id number]
[2018-07-08] MEDS: Amlodipine 10 MG TAB PO SCH (21:56)
[2018-07-09] MEDS: Alogliptin 25 MG TAB PO SCH (08:53)
[2018-07-09] MEDS: Docusate 100 MG CAP PO SCH ×2 (08:53→21:28)
[2018-07-09] MEDS: Enoxaparin Sodium 40 MG/0.4 ML SYRINGE SC SCH (08:53)
[2018-07-09] MEDS: Polyethylene Glycol 3350 17 GM Packet PO SCH (08:53)
[2018-07-09] MEDS: Carbidopa/Levodopa 25-100 mg Tablet PO SCH ×3 (08:54→21:28)
[2018-07-09] MEDS: HYDROcodone/Acetaminophen 5/325 mg Tablet PO PRN ×3 (08:54→21:27)
--- NOTE | 2018-07-09 12:18 | PRG ---
DATE OF SERVICE: 07/09/2018 SUBJECTIVE: The patient is seen and examined at the bedside. Her daughter is present during my visit. Apparently, the patient was denied to go to the rehab by her insurance. Her pain in her back improved since we put her on Vicodin and she is much more functional now. OBJECTIVE: VITAL SIGNS: Blood pressure is 116/59, pulse is 84, respiratory rate is 18, O2 saturation is 95% on room air, and her temperature is 98.0. HEENT: Her head is atraumatic and normocephalic. Eyes are PERRLA. Sclerae are nonicteric. Oral mucosa is moist. NECK: Supple. No lymphadenopathy. LUNGS: Clear. HEART: S1 and S2 normal. No S3. No S4. ABDOMEN: Obese and nontender. Bowel sounds are present. No organomegaly. EXTREMITIES: A 1+ peripheral edema, similar bilaterally. No any skin changes. NEUROLOGIC: She follows my commands. She is alert and oriented x2. There is no any motor deficit present. Cranial nerves are intact. LABORATORY DATA: Glycemia is ranging from 124 to 154. IMPRESSION: 1. T12 compression fracture, status post fall. This does not require any surgical intervention, just pain management. 2. Diabetes mellitus, chronic, relatively well controlled. 3. Orthostasis with hypotension, improved. 4. Parkinson's disease, chronic, stable. 5. Syncope, not recurrent. 6. Obesity. 7. Dyslipidemia. 8. Intractable nausea and vomiting, resolved. 9. Dysphagia. The patient had esophageal dilatation done on July 02. So, she had a polyp removed from the stomach, which pathology report came back with diagnosis of . PLAN: I am going to continue her current regimen with Vicodin p.r.n. as needed with PT. Since she was refused by insurance for rehab, assisted facility option was introduced and we are waiting for the insurance to give us their decision. Continue her current diabetic regimen and current blood pressure management, and we will continue DVT prophylaxis. Job ID: [id number]
[2018-07-09] MEDS: Amlodipine 10 MG TAB PO SCH (21:26)
[2018-07-10 04:11] VITALS: TEMP 98.1
[2018-07-10] MEDS: HumaLOG 300 UNITS/3 ML VIAL SC PRN (06:22)
[2018-07-10] MEDS: Alogliptin 25 MG TAB PO SCH (08:01)
[2018-07-10] MEDS: Docusate 100 MG CAP PO SCH (08:02)
[2018-07-10] MEDS: HYDROcodone/Acetaminophen 5/325 mg Tablet PO PRN ×2 (08:02→14:43)
[2018-07-10] MEDS: Polyethylene Glycol 3350 17 GM Packet PO SCH (08:03)
[2018-07-10] MEDS: Carbidopa/Levodopa 25-100 mg Tablet PO SCH ×2 (08:03→14:43)
[2018-07-10] MEDS: Enoxaparin Sodium 40 MG/0.4 ML SYRINGE SC SCH (08:04)
--- NOTE | 2018-07-10 08:10 | PDOC.PN ---
- Subjective Encounter Start Date: 07/10/18 Encounter Start Time: 09:10 Subjective: Continued back pain, helped with pain meds. Chronic abdominal pain. -: No new complaints. - Objective Resuscitation Status - Order Detail: 06/30/18 00:01 Resuscitation Status Routine Resuscitation Status: DNAR: NO Resuscitation Discussed with: advance directive on record and NURse MAR Reviewed: Yes Vital Signs & Weight: Vital Signs (12 hours) Temp Pulse Resp BP BP Pulse Ox 07/10/18 07:45 98.1 F 78 20 123/73 94 L 07/10/18 04:00 98.1 F 84 20 134/61 94 L 07/09/18 21:26 76 07/09/18 21:15 95 Weight Weight 197 lb 1.6 oz I&O: 07/09/18 07/10/18 07/11/18 06:59 06:59 06:59 Intake Total 1700 450 Balance 1700 450 Result Diagrams: 07/04/18 06:52 07/04/18 06:52 Additional Labs: Accuchecks 07/10/18 07/09/18 07/09/18 04:04 19:08 17:43 POC Glucose 162 H 95 99 07/09/18 11:49 POC Glucose 150 H Phys Exam - Physical Examination Constitutional: NAD HEENT: moist MMs Respiratory: no wheezing, no rales, no rhonchi Cardiovascular: RRR, no significant murmur Gastrointestinal: soft, positive bowel sounds Neurological: non-focal Psychiatric: normal affect, A&O x 3 Dx/Plan (1) Dysphagia Code(s): R13.10 - DYSPHAGIA, UNSPECIFIED Status: Resolved Qualifiers: Dysphagia type: unspecified Qualified Code(s): R13.10 - Dysphagia, unspecified Comment: EGD with esophageal dilatation done 07/02 (2) Intractable nausea and vomiting Code(s): R11.2 - NAUSEA WITH VOMITING, UNSPECIFIED Status: Resolved (3) Orthostasis Code(s): I95.1 - ORTHOSTATIC HYPOTENSION Status: Acute Comment: likely due to poor po intake and Parkinson's, still quite orthostatic with standing but symptoms have improved, hope they will improve further with better po intake though this may be progression of her Parkinson's (4) Diabetes mellitus Code(s): E11.9 - TYPE 2 DIABETES MELLITUS WITHOUT COMPLICATIONS Status: Chronic Qualifiers: Diabetes mellitus type: type 2 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 use (5) Dyslipidemia Code(s): E78.5 - HYPERLIPIDEMIA, UNSPECIFIED Status: Chronic (6) HTN (hypertension) Code(s): I10 - ESSENTIAL (PRIMARY) HYPERTENSION Status: Chronic Qualifiers: Hypertension type: essential hypertension Qualified Code(s): I10 - Essential (primary) hypertension (7) Obesity (BMI 30.0-34.9) Code(s): E66.9 - OBESITY, UNSPECIFIED Status: Chronic (8) Syncope Code(s): R55 - SYNCOPE AND COLLAPSE Status: Resolved (9) Parkinson's disease Code(s): G20 - PARKINSON'S DISEASE Status: Chronic (10) T12 compression fracture Code(s): S22.080A - WEDGE COMPRESSION FRACTURE OF T11-T12 VERTEBRA, INIT Status: Acute Comment: mild, from fall prior to admission, treating pain with vicodin, no surgical management necessary - Plan cont current plan of care, PT/OT, DVT proph w/lovenox, DVT proph w/SCDs Awaiting SNF placement * . - Discharge Day Encounter end time: 09:20
[2018-07-10 17:38] VITALS: BP 131/59
--- NOTE | 2018-07-11 01:30 | DIS ---
DATE OF ADMISSION: 06/29/2018 DATE OF DISCHARGE: 07/10/2018 PRIMARY CARE PHYSICIAN: Eitan Acosta MD REASON FOR ADMISSION: Syncope. DIAGNOSES AT DISCHARGE: 1. Dysphagia, resolved with esophageal dilation. 2. Orthostatic hypotension, improved. 3. Parkinson disease. 4. Mild T12 compression fracture. 5. Diabetes mellitus type 2. 6. Dyslipidemia. 7. Hypertension. 8. Obesity. PROCEDURES: 1. CT of the brain without contrast showing no evidence for acute intracranial abnormality. 2. X-ray of the hip, right side. No fracture or acute osseous abnormalities. 3. CT of the cervical spine. No evidence for fracture or traumatic subluxation. 4. CT of the chest, abdomen and pelvis without contrast showing no evidence of fracture or other traumatic abnormalities. 5. X-ray of the knees showing no evidence of acute osseous abnormality bilaterally. 6. Repeat lumbar cervical spine CT later in the hospital course due to persistent low back pain showing mild superior endplate compression deformity involving T12. 7. EGD with Goldsmith dilation of two esophageal strictures in the small gastric cardia polyp biopsied. Polyp was just hyperplastic polyp without any H pylori and no cancer. CONSULTATION: Gastroenterology, Dr. Tomlin. SUMMARY OF HOSPITAL COURSE: This is an 82-year-old white female with a known history of Parkinson's, who would see her primary care physician in the morning, felt nauseated and thought she might faint at the office. She was given Gatorade and a candy, and felt better. She went home. When she tried to get onto her porch at her home, she fell backwards onto her back, had generalized body aches. When she went into the emergency room, she had negative x-rays initially but her systolic blood pressure would drop into the 80s. She also had one episode of diarrhea and some nausea, vomiting, and fever in the emergency room. The patient was admitted to the hospital, given IV saline, and her Cozaar was held. She had some improvement in her symptoms, however, she had persistent orthostatic hypotension whenever she would stand up and with significant dizziness. She also had persistent upper lumbar/lower thoracic back pain. The patient also reported she had been having increasing trouble swallowing, recently had not been eating well, which led up to her symptoms on the day of admission. GI was consulted. She does have chronic abdominal pain, which she has had a negative workup in the past but has had recurrent esophageal strictures. Also, she had an EGD which showed recurrent esophageal stricture. She had these dilated and she was able to swallow food much better after that. She continued to have her chronic abdominal pain, but difficulty swallowing was resolved. The patient was able to get up a little bit with physical therapy in the hospital and started taking a few steps, however, she did have some dizziness. Her blood pressure medications were adjusted. She also had persistence of the back pain. She had a repeat CT scan done, which did show a small compression fracture and did not require any sort of surgery, but she was given pain medicine for this which helped her significantly during the hospitalization. She was turned down for rehab, so she is being discharged to a longterm facility. DISCHARGE MANAGEMENT: Discharged to [facility]. ACTIVITY: As tolerated. DIET: Diabetic diet. THERAPY: Occupational and physical therapy. FOLLOWUP: She is to follow up with Dr. Eitan Acosta and Dr. Tomlin as an outpatient. DISCHARGE MEDICATIONS: 1. Amlodipine 10 mg daily. 2. Carbidopa/levodopa, Sinemet 1 tab 3 times a day. 3. Docusate 100 mg twice a day. 4. Robitussin DM as needed. 5. [place] 5/325 one tablet every 4 hours as needed for pain. 6. Myrbetriq 50 mg daily. 7. Ondansetron 4 mg every 6 hours as needed for nausea and vomiting. 8. MiraLAX 17 g daily. 9. Sertraline 50 mg daily. 10. Januvia 100 mg daily. Job ID: [id number]
== END 2018-07-10 18:04 | DRG 312 ==
LOC: ERS 11:51 → ERHOLD 17:13 → OBSVTOIN 17:13 → 2SE 23:18 → T4-B 07-02 18:46
PROVIDERS: ADMIT Internal Medicine; ATTEND Internal Medicine
PROC: 0D758ZZ Dilation of Esophagus, Via Natural or Artificial Opening Endoscopic (ICD-10-PCS; principal; 2018-07-02)
PROC: 0DB78ZX Excision of Stomach, Pylorus, Via Natural or Artificial Opening Endoscopic, Diagnostic (ICD-10-PCS; 2018-07-02)
DX: I95.1 Orthostatic hypotension (principal); S22.080A Wedge compression fracture of T11-T12 vertebra, initial encounter for closed fracture; R13.10 Dysphagia, unspecified; E11.9 Type 2 diabetes mellitus without complications; I10 Essential (primary) hypertension; G20 Parkinson's disease; E78.5 Hyperlipidemia, unspecified; G58.8 Other specified mononeuropathies; K21.9 Gastro-esophageal reflux disease without esophagitis; K22.2 Esophageal obstruction; K31.7 Polyp of stomach and duodenum; E66.9 Obesity, unspecified; Z68.33 Body mass index [BMI] 33.0-33.9, adult; Z66 Do not resuscitate; R11.2 Nausea with vomiting, unspecified; W19.XXXA Unspecified fall, initial encounter; Y92.9 Unspecified place or not applicable; Z88.0 Allergy status to penicillin; Z88.2 Allergy status to sulfonamides; Z88.8 Allergy status to other drugs, medicaments and biological substances; Z82.3 Family history of stroke
CPT/HCPCS: 36415; 36416; 70450; 71250; 72125; 72131; 74177; 80048; 80053; 84484; 85025; 86304; 88305; 88312; 93005; 96374; 96375; 96376; J1650; J2001; J2270; J2405; J2550; J2704; Q0162

== ENCOUNTER 2019-03-19 13:03 | Outpatient (CLI) | payer MEDICARE, MEDICAID ==
--- NOTE | 2019-03-19 14:02 | ULT ---
RENAL ULTRASOUND: INDICATION: Kidney stones. FINDINGS: The right kidney measures 10 cm in length. The left kidney measures 11.5 cm in length. No hydroneph rosis. No cystic or solid lesion. Cortical echogenicity is normal. The bladder is contracted and not evaluated. IMPRESSION: Unremarkable renal ultrasound. POS: SAIGE
== END 2019-03-19 13:04 | disposition home or self-care (01) ==
LOC: BICULT 13:03
PROVIDERS: ATTEND Urology
DX: N20.0 Calculus of kidney (principal)
CPT/HCPCS: 76770

== ENCOUNTER 2019-04-24 07:59 | Outpatient (CLI) | payer MEDICARE, MEDICAID ==
[2019-04-24 16:56] LABS: #Eosinphils 0.5 thou/uL (0.0-0.7); #Lymphocytes 1.4 thou/uL (1.20-3.40); #Monocytes 0.6 thou/uL (0.11-0.59); #Neutrophils 5.8 thou/uL (1.40-6.50); %Basophils 0.5 % (0.0-1.0); %Eosinophils 5.9 % (0.0-10.0); %Lymphocytes 17.2 % (21.0-51.0); %Monocytes 6.8 % (0.0-10.0); %Neutrophils 69.6 % (42.0-75.0); Hemoglobin 12.9 g/dL (12.0-16.0); Mean Corpuscular HGB CONC 33.5 g/dL (32.0-36.0); Mean Corpuscular Hemoglobin 27.9 pg (27.0-31.0); Mean Corpuscular Volume 83.4 fL (78.0-98.0); Mean Platelet Volume 6.9 fL (7.4-10.4); Platelet Count 283 thou/uL (130-400); RBC Distribution Width 12.8 % (11.5-14.5); Red Blood Cell (RBC) Count 4.61 mill/uL (4.20-5.40); White Blood Cell (WBC) Count 8.3 thou/uL (4.8-10.8)
[2019-04-24 17:24] LABS: ALT (SGPT) 8 U/L (8-55); AST (SGOT) 12 U/L (5-34); Albumin 4.4 g/dL (3.4-4.8); Alkaline Phosphatase 98 U/L (40-110); Anion Gap 15 mmol/L (10-20); BUN (Urea Nitrogen) 22 mg/dL (9.8-20.1); Bilirubin, Total 0.4 mg/dL (0.2-1.2); Calc. Creatinine Clearance 0 mL/min (70-130); Calcium 9.7 mg/dL (7.8-10.44); Carbon Dioxide 24 mmol/L (23-31); Chloride 106 mmol/L (98-107); Estimated GFR-MDRD 59; Globulin 3.1 g/dL (2.4-3.5); Glucose 91 mg/dL (83-110); Protein, Total 7.5 g/dL (6.0-8.3); Sodium 141 mmol/L (136-145)
--- NOTE | 2019-04-25 17:19 | EKG ---
Test Reason : Blood Pressure : / mmHG Vent. Rate : 082 BPM Atrial Rate : 082 BPM P-R Int : 150 ms QRS Dur : 080 ms QT Int : 390 ms P-R-T Axes : 068 048 076 degrees QTc Int : 455 ms Normal sinus rhythm Normal ECG When compared with ECG of 30-NOV-2018 22:55, No significant change was found Confirmed by DR. Ramesh REDDING ([id number]) on 04/25/2019 5:18:46 PM Referred By: AMANDA Confirmed By:DR. Ramesh REDDING
== END 2019-04-24 08:00 | disposition home or self-care (01) ==
LOC: LABBT 07:59
PROVIDERS: ATTEND Surgery
DX: Z01.818 Encounter for other preprocedural examination (principal); K64.9 Unspecified hemorrhoids
CPT/HCPCS: 80053; 85025; 93005; 93010

== ENCOUNTER 2019-05-09 08:55 | Outpatient (CLI) | payer MEDICARE, MEDICAID ==
--- NOTE | 2019-05-09 10:42 | CT ---
CT ABDOMEN AND PELVIS: DATE: 05/09/2019. COMPARISON: 10/01/2017. HISTORY: Abdominal pain, left lower quadrant pain, nausea and vomiting. TECHNIQUE: Axial CT imaging at 5 mm intervals from the lung bases through pubic symphysis with oral contrast. Co livier and sagittal reformatted imaging obtained. FINDINGS: Lack of IV contrast limits assessment of the viscera, vascular structures, and for lymphadenopathy. The imaged lung bases are unremarkable. No free intraperitoneal air or fluid. Limited assessment of the liver, spleen, pancreas, adrenal glands, and kidneys demonstrate no acute f indings. Cholecystectomy clips are present. There is a punctate stone within the lower pole of the left kidney. There is a nonobstructing stone in the region of the left ureteropelvic junction measuri ng 3 mm. There is no evidence for obstructive uropathy on either side. The uterus is surgically absent. There is no evidence for bowel inflammatory change or bowel obstruction. Small sliding-type hiatal he rnia noted. Limited assessment for lymphadenopathy appears unremarkable. Mild scattered atherosclerotic calcification of the abdominal aorta and its branches noted. There is postoperative hardware within the proximal right femur. There is disc space narrowing at L5-S1 with facet hypertrophy and associated bilateral neural foramin al stenosis. There is a superior endplate fracture of T12 with mild progression of vertebral body height loss when compared to 07/07/2018 CT of the lumbar spine. IMPRESSION: Multiple incidental findings as detailed above. No evidence for free intraperitoneal air or small bow el obstruction. Transcribed Date/Time: 05/09/2019 11:10 AM
== END 2019-05-09 08:56 | disposition home or self-care (01) ==
LOC: CT 08:55
PROVIDERS: ATTEND Physician Assistant Medical
DX: K62.5 Hemorrhage of anus and rectum (principal); R10.32 Left lower quadrant pain; R10.11 Right upper quadrant pain; R10.9 Unspecified abdominal pain; R19.7 Diarrhea, unspecified; R11.2 Nausea with vomiting, unspecified; R13.10 Dysphagia, unspecified; Z98.890 Other specified postprocedural states; M48.07 Spinal stenosis, lumbosacral region
CPT/HCPCS: 74176

== ENCOUNTER 2019-07-07 20:04 | Emergency (ER) | payer MEDICARE, MEDICAID ==
[2019-07-07 21:18] LABS: #Eosinphils 0.4 thou/uL (0.0-0.7); #Lymphocytes 0.9 thou/uL (1.20-3.40); #Monocytes 0.6 thou/uL (0.11-0.59); #Neutrophils 6.6 thou/uL (1.40-6.50); %Basophils 0.2 % (0.0-1.0); %Eosinophils 4.8 % (0.0-10.0); %Lymphocytes 10.3 % (21.0-51.0); %Monocytes 6.5 % (0.0-10.0); %Neutrophils 78.1 % (42.0-75.0); Hemoglobin 12.8 g/dL (12.0-16.0); Mean Corpuscular HGB CONC 33.1 g/dL (32.0-36.0); Mean Corpuscular Hemoglobin 27.4 pg (27.0-31.0); Mean Corpuscular Volume 82.8 fL (78.0-98.0); Mean Platelet Volume 6.9 fL (7.4-10.4); Platelet Count 232 thou/uL (130-400); RBC Distribution Width 13.1 % (11.5-14.5); Red Blood Cell (RBC) Count 4.65 mill/uL (4.20-5.40); White Blood Cell (WBC) Count 8.5 thou/uL (4.8-10.8)
[2019-07-07 21:39] LABS: ALT (SGPT) 7 U/L (8-55); AST (SGOT) 11 U/L (5-34); Alkaline Phosphatase 73 U/L (40-110); Anion Gap 13 mmol/L (10-20); BUN (Urea Nitrogen) 16 mg/dL (9.8-20.1); Bilirubin, Total 0.6 mg/dL (0.2-1.2); Calc. Creatinine Clearance 0 mL/min (70-130); Calcium 9.6 mg/dL (7.8-10.44); Carbon Dioxide 25 mmol/L (23-31); Chloride 107 mmol/L (98-107); Estimated GFR-MDRD 55; Globulin 3.4 g/dL (2.4-3.5); Glucose 103 mg/dL (83-110); Potassium 3.8 mmol/L (3.5-5.1); Protein, Total 7.4 g/dL (6.0-8.3); Sodium 141 mmol/L (136-145)
--- NOTE | 2019-07-07 21:46 | RAD ---
RADIOGRAPH CHEST 1 VIEW: DATE: 07/07/2019 HISTORY: 83-year-old female status post syncope and vomiting. Rule out aspiration. FINDINGS: There are no airspace densities, pulmonary edema, pneumothorax, or cardiomegaly. The lateral costophr enic angles are sharp. IMPRESSION: No acute cardiopulmonary findings.
[2019-07-07 22:02] LABS: Bilirubin Negative (Negative); Blood, Urine Negative (Negative); Clarity Clear (Clear); Glucose, Urine (Dipstick) Normal (Negative); Leukocyte 25 Leu/uL (Negative); Nitrite Negative (Negative); Protein, Urine (Dipstick) 30 mg/dL (Neg-Trace); RBC/HPF 0-3 HPF (0-3); Squamous Epithelial 0-3 HPF (0-3); Urobilinogen Normal mg/dL (Less than 2)
[2019-07-07 22:13] LABS: Bacteria/HPF None Seen HPF (None Seen)
== END 2019-07-07 23:39 | disposition home or self-care (01) ==
LOC: ERS 20:04
DX: R55 Syncope and collapse (principal); E11.9 Type 2 diabetes mellitus without complications; I10 Essential (primary) hypertension; E78.5 Hyperlipidemia, unspecified; F32.9 Major depressive disorder, single episode, unspecified; Z79.899 Other long term (current) drug therapy; Z79.84 Long term (current) use of oral hypoglycemic drugs
CPT/HCPCS: 36415; 51701; 71045; 80053; 81003; 81015; 84484; 85025; 93005; A4353

== ENCOUNTER 2019-07-11 23:04 | Emergency (ER) | payer MEDICARE, MEDICAID ==
[2019-07-11] MEDS ORDERED: Morphine 10 MG/ML VIAL ONE (23:27)
--- NOTE | 2019-07-11 23:48 | RAD ---
Exam: One view HISTORY: Fall. Pain. FINDINGS: Sacral ala appear to be preserved. Intact bony pelvis. Bilateral obturator rings are intact. Uncompli cated internal fixation hardware involving the right hip. No previous right intertrochanteric fracture is noted. Visualized left hip is unremarkable. IMPRESSION: No acute fracture. Healed remote right intertrochanteric fracture.
--- NOTE | 2019-07-11 23:49 | RAD ---
Exam:2 views right hip HISTORY: Fall. Pain. COMPARISON: None FINDINGS: Internal fixation hardware without perihardware lucency. Sclerosis from a previously healed intertrochanteric fracture. No acute fracture. IMPRESSION: No acute fracture.
--- NOTE | 2019-07-11 23:50 | RAD ---
Exam: 3 views lumbar spine COMPARISON: 03/03/2017 Correlation: Abdomen pelvis CT 05/09/2019 HISTORY: Fall. Pain FINDINGS: 5 lumbar type vertebra. Diffuse bone demineralization. There is mild to moderate loss of ve rtebral body height at T12 with mild retropulsion. Irregularity along the superior plate of L2 with minimal loss of vertebral body height. Mild retropulsion. IMPRESSION: 1. Tyhg-zw-qyasuljc compression fracture at T12 and mild compression fracture at L2. Note, correlatio n made with a CT from 05/09/2019 does demonstrate vertebral body height loss at T12. T12 fracture may be remote. Clinical correlation is essential. 2. On the CT from 05/09/2019 the superior endplate of L2 appears to be intact. Irregularity involving the superior endplate of L2 may be due to an acute endplate injury. Correlate clinically.
[2019-07-12] MEDS ORDERED: HYDROcodone/Acetaminophen 5/325 mg Tablet ONE (00:23)
[2019-07-12] MEDS ORDERED: Ondansetron ODT 8 MG TAB ONE (03:00)
--- NOTE | 2019-07-12 07:29 | CT ---
PRELIMINARY REPORT/DIRECT RADIOLOGY/EMERGENCY AFTER HOURS PROCEDURE: EXAM: CT scan of the brain without contrast CLINICAL HISTORY: ER 7.. F83 presents to the ER via EMS from home with c/o witnessed fall 30 min ago. No LOC TECHNIQUE: Axial computed tomography images of the head/brain without intravenous contrast. COMPARISON: None provided. FINDINGS: BRAIN: Moderate left greater than right subcortical and periventricular white matter hypodensity. Gr ay-white junction is intact. No mass, midline shift, or hematoma. VENTRICLES: No hydrocephalus. ORBITS: The orbits are unremarkable. SINUSES AND MASTOIDS: The paranasal sinuses and mastoid air cells are clear. SOFT TISSUES: No significant facial or scalp soft tissue swelling evident. No radiopaque foreign bod y is seen. BONES: No acute skull fracture. IMPRESSION: No acute intracranial abnormality. ELECTRONICALLY SIGNED BY: Klaen Newell D.O. Jul 12, 2019 1:02:53 AM DOMESTIC HELPER FINAL REPORT: CT BRAIN WITHOUT CONTRAST: History: Trauma. Comparison: CT brain 2018. Findings: No acute hemorrhage or infarct. Extensive periventricular and deep white matter chronic microangiopat hic changes. Calvarium is intact. Impression: Findings and impression are concordant with the preliminary report. Transcribed Date/Time: 07/12/2019 8:03 AM
--- NOTE | 2019-07-12 07:33 | CT ---
PRELIMINARY REPORT/DIRECT RADIOLOGY/EMERGENCY AFTER HOURS PROCEDURE: EXAM: CT scan of the cervical spine without contrast CLINICAL HISTORY: ER 7.. F83 presents to the ER via EMS from home with c/o witnessed fall 30 min ago. No LOC TECHNIQUE: Axial computed tomography images of the cervical spine without intravenous contrast. Sagit francine and coronal reformations performed. COMPARISON: None provided. FINDINGS: BONES: Anatomic alignment of the cervical spine with straightening of the normal cervical lordosis. S urgical changes compatible with C4 C7 ACDF with plate and screw. The plate and screw construct is not firmly apposed to the anterior margin of the cervical spine. However, there is no evidence for pizarro rdware loosening, failure, or subsidence. DISCS / DEGENERATIVE CHANGES: Moderate diffuse uncovertebral and facet arthrosis with neuroforaminal narrowing on the left at C6-7. SOFT TISSUES: Prevertebral soft tissues are normal. Neck soft tissues are symmetric. No mass or lymph adenopathy. IMPRESSION: No cervical spine fracture. ELECTRONICALLY SIGNED BY: Kalen Newell D.O. Jul 12, 2019 1:05:54 AM FILTER CLEANER FINAL REPORT: CT CERVICAL SPINE WITHOUT CONTRAST: History: Fall. Comparison: CT cervical spine June 2018. Findings: No acute fracture or malalignment. Chronic anterior extrusion of the ACDF hardware 4-5 mm. Impression: Findings and impression are concordant with the preliminary report. Transcribed Date/Time: 07/12/2019 8:06 AM
--- NOTE | 2019-07-12 07:50 | RAD ---
XR Foot Rt 3 View STANDARD History: Trauma. Fall Comparison: None. Findings: Moderate midfoot degenerative change. Moderate degenerative change of the great toe metatar dana phalangeal joint with medial capsular calcifications suggesting old injury. Mild soft tissue swelling of the plantar aspect of the midfoot. Fifth metatarsal tuberosity is intact . Mild interphalangeal joint space narrowing. Impression: Chronic findings. No acute displaced fracture or malalignment appreciated.
== END 2019-07-12 03:16 | disposition home or self-care (01) ==
LOC: ERS 23:04
DX: S32.029A Unspecified fracture of second lumbar vertebra, initial encounter for closed fracture (principal); S09.90XA Unspecified injury of head, initial encounter; M25.571 Pain in right ankle and joints of right foot; S22.089D Unspecified fracture of T11-T12 vertebra, subsequent encounter for fracture with routine healing; E11.9 Type 2 diabetes mellitus without complications; I10 Essential (primary) hypertension; E78.5 Hyperlipidemia, unspecified; F32.9 Major depressive disorder, single episode, unspecified; Z79.899 Other long term (current) drug therapy; Z79.84 Long term (current) use of oral hypoglycemic drugs; W18.30XA Fall on same level, unspecified, initial encounter
CPT/HCPCS: 70450; 72100; 72125; 72170; 96372; J2270

== ENCOUNTER 2019-09-06 08:09 | Emergency (ER) | payer MEDICARE, SELFPAY ==
[2019-09-06] MEDS ORDERED: Ketorolac Tromethamine 30 MG/ML VIAL ONE (09:17)
[2019-09-06] MEDS ORDERED: Iopamidol 370 76% 100 ML VIAL ONE (09:43)
[2019-09-06 10:03] LABS: #Eosinphils 0.2 thou/uL (0.0-0.7); #Lymphocytes 0.7 thou/uL (1.20-3.40); #Monocytes 0.6 thou/uL (0.11-0.59); #Neutrophils 7.9 thou/uL (1.40-6.50); %Basophils 0.4 % (0.0-1.0); %Eosinophils 2.3 % (0.0-10.0); %Lymphocytes 7.5 % (21.0-51.0); %Monocytes 6.7 % (0.0-10.0); %Neutrophils 83.1 % (42.0-75.0); Hemoglobin 12.3 g/dL (12.0-16.0); Mean Corpuscular HGB CONC 31.6 g/dL (32.0-36.0); Mean Corpuscular Hemoglobin 26.6 pg (27.0-31.0); Mean Corpuscular Volume 84.2 fL (78.0-98.0); Mean Platelet Volume 6.9 fL (7.4-10.4); Platelet Count 304 thou/uL (130-400); RBC Distribution Width 13.5 % (11.5-14.5); Red Blood Cell (RBC) Count 4.61 mill/uL (4.20-5.40); White Blood Cell (WBC) Count 9.6 thou/uL (4.8-10.8)
[2019-09-06 10:30] LABS: ALT (SGPT) Less than 7 U/L (8-55); AST (SGOT) 12 U/L (5-34); Albumin 3.9 g/dL (3.4-4.8); Alkaline Phosphatase 95 U/L (40-110); Anion Gap 12 mmol/L (10-20); BUN (Urea Nitrogen) 12 mg/dL (9.8-20.1); Bilirubin, Total 0.8 mg/dL (0.2-1.2); Calc. Creatinine Clearance 0 mL/min (70-130); Calcium 9.3 mg/dL (7.8-10.44); Carbon Dioxide 26 mmol/L (23-31); Chloride 106 mmol/L (98-107); Estimated GFR-MDRD 82; Globulin 2.9 g/dL (2.4-3.5); Glucose 119 mg/dL (83-110); Lipase 38 U/L (8-78); Protein, Total 6.8 g/dL (6.0-8.3); Sodium 141 mmol/L (136-145)
[2019-09-06] MEDS ORDERED: Famotidine/PF 20 mg/2ml Vial ONE (10:36)
[2019-09-06] MEDS ORDERED: diphenhydrAMINE 50 MG/ML VIAL ONE (10:36)
[2019-09-06] MEDS ORDERED: methylPREDNISolone Sod Succ/PF 125 MG/2 ML VIAL ONE (10:36)
[2019-09-06 12:05] LABS: Bacteria/HPF 2+ HPF (None Seen); Bilirubin Negative (Negative); Blood, Urine Negative (Negative); Clarity Clear (Clear); Glucose, Urine (Dipstick) Normal (Negative); Leukocyte 75 Leu/uL (Negative); Mucous/LPF Rare LPF (<2+); Nitrite Negative (Negative); Protein, Urine (Dipstick) Negative (Neg-Trace); RBC/HPF 0-3 HPF (0-3); Squamous Epithelial 0-3 HPF (0-3); Transitional Epithelial 0-3 HPF (None Seen); Urobilinogen Normal mg/dL (Less than 2); WBC/HPF 21-50 HPF (0-3)
--- NOTE | 2019-09-06 13:28 | CT ---
CT ABDOMEN AND PELVIS WITH IV CONTRAST: HISTORY: Abdominal pain and back pain. FINDINGS: Comparison is made with the exam of 07/24/2019. There are dependent changes in the lung bases. Calcified granulomas in the spleen are again seen. T he liver, pancreas, adrenal glands, and right kidney are normal. A 3 mm nonobstructing left renal ca lculus is again seen. No left-sided renal mass is identified. No hydroureteral nephrosis is seen on either side. The previously noted 4 mm calculus in the left distal ureter is no longer seen. No bl adder calculi identified. No free air, free fluid, or lymphadenopathy is seen. The patient is post cholecystectomy. The patie nt is post cholecystectomy and hysterectomy. There are vascular calcifications without evidence of aneurysmal dilatation of the abdominal aorta. Compression of T12 vertebral body is redemonstrated. There are degenerative changes in the spine. P ostop changes and metallic hardware in the right proximal femur are again seen. A small hiatal herni a is present. IMPRESSION: No acute process. POS: TPC
== END 2019-09-06 15:24 ==
LOC: ERS 08:09
DX: N39.0 Urinary tract infection, site not specified (principal); G89.29 Other chronic pain; E11.9 Type 2 diabetes mellitus without complications; I10 Essential (primary) hypertension; E78.5 Hyperlipidemia, unspecified; F32.9 Major depressive disorder, single episode, unspecified; Z79.899 Other long term (current) drug therapy
CPT/HCPCS: 36415; 51701; 74177; 80053; 81003; 81015; 83605; 83690; 85025; 93005; 96374; 96375; A4353; J1200; J1885; J2930; Q9967; S0028

== ENCOUNTER 2019-09-30 11:46 | Observation (INO) | payer MEDICARE ==
--- NOTE | 2019-09-30 12:33 | RAD ---
RADIOGRAPH CHEST 1 VIEW: DATE: 09/30/2019 HISTORY: 83-year-old female with chest pain FINDINGS: There are no airspace densities, pulmonary edema, pneumothorax, or cardiomegaly. The lateral costophr enic angles are sharp. IMPRESSION: No acute cardiopulmonary findings.
[2019-09-30 12:37] LABS: #Eosinphils 0.1 thou/uL (0.0-0.7); #Monocytes 1.2 thou/uL (0.11-0.59); #Neutrophils 14.2 thou/uL (1.40-6.50); %Basophils 0.3 % (0.0-1.0); %Eosinophils 0.4 % (0.0-10.0); %Monocytes 7.2 % (0.0-10.0); %Neutrophils 86.1 % (42.0-75.0); Hemoglobin 12.6 g/dL (12.0-16.0); Mean Corpuscular HGB CONC 31.8 g/dL (32.0-36.0); Mean Corpuscular Hemoglobin 27.2 pg (27.0-31.0); Mean Corpuscular Volume 85.6 fL (78.0-98.0); Mean Platelet Volume 7.6 fL (7.4-10.4); Platelet Count 270 thou/uL (130-400); RBC Distribution Width 14.6 % (11.5-14.5); Red Blood Cell (RBC) Count 4.63 mill/uL (4.20-5.40); White Blood Cell (WBC) Count 16.5 thou/uL (4.8-10.8)
[2019-09-30 13:00] LABS: ALT (SGPT) Less than 7 U/L (8-55); AST (SGOT) 10 U/L (5-34); Albumin 3.5 g/dL (3.4-4.8); Alkaline Phosphatase 82 U/L (40-110); Anion Gap 14 mmol/L (10-20); BUN (Urea Nitrogen) 32 mg/dL (9.8-20.1); Bilirubin, Total 0.6 mg/dL (0.2-1.2); CK (CPK) 15 U/L (29-168); Calc. Creatinine Clearance 0 mL/min (70-130); Calcium 9.6 mg/dL (7.8-10.44); Carbon Dioxide 26 mmol/L (23-31); Chloride 105 mmol/L (98-107); Estimated GFR-MDRD 42; Globulin 2.9 g/dL (2.4-3.5); Glucose 118 mg/dL (83-110); Lipase 6 U/L (8-78); Protein, Total 6.4 g/dL (6.0-8.3); Sodium 142 mmol/L (136-145)
[2019-09-30 13:13] LABS: Potassium 2.8 mmol/L (3.5-5.1)
[2019-09-30] MEDS ORDERED: Aspirin Chewable 81 MG TAB ONE (13:18)
--- NOTE | 2019-09-30 14:19 | PDOC.FPRHP ---
- History of Present Illness Chief Complaint: left shoulder pain, chest pain History of Present Illness: 83yo F, [facility] nursing with h/o parkinson's, dementia presenting to the ER today via ambulance with a CC of left shoulder and chest pain. She states that the chest pain started last night and has gotten better since then. She is unable to describe or rate the pain. She was unsure what she was doing when the pain started. She states that the left shoulder pain has been going on for about 4 weeks and describes it as a soreness. She states she has fallen recently and it started hurting after this. She is currently in a TLCO for a lumbar wedge fracture, pending elective repair. Endorses nausea and vomiting x 1 last night. States decreased appetite. Denies any fever, chills, dysuria, SOB. Endorses constipation. States that her daughter is her medical decision maker Feli barnett. Spoke with group home nurse and she was sent because she is usually A/O x3 at baseline but was altered this morning and complaining of chest pain and thus called 911 and sent to ED. ED Course: ASA 324, Potassium 40mEq - Allergies/Adverse Reactions Allergies Allergy/AdvReac Type Severity Reaction Status Date / Time pregabalin [From Lyrica] Allergy Severe SWELLING Verified 09/09/19 23:40 shellfish derived Allergy Severe SWELLING Verified 09/09/19 23:40 codeine Allergy Intermediate N/V Verified 09/09/19 23:40 adhesive Allergy Verified 09/09/19 23:40 duloxetine HCl Allergy SWELLING Verified 09/09/19 23:40 [From Cymbalta] iodine Allergy Verified 09/09/19 23:40 lisinopril Allergy ? Verified 09/09/19 23:40 Penicillins Allergy Verified 09/09/19 23:40 Rbnblrh-[id number]-[id number] Reductase Allergy PAIN Verified 09/09/19 23:40 Inhibitor sulfamethoxazole Allergy Verified 09/09/19 23:40 [From Bactrim] trimethoprim [From Bactrim] Allergy Verified 09/09/19 23:40 ADHESIVES Allergy Intermediate Rash Uncoded 09/09/19 23:40 - Home Medications Medication Instructions Recorded Confirmed Type Glimepiride 2 mg PO QAM-WM 09/30/17 04/24/19 History Mirabegron [Myrbetriq] 50 mg PO DAILY 09/30/17 04/24/19 History Sertraline HCl 1 tab PO BID 09/30/17 04/24/19 History sitaGLIPtin Phosphate [Januvia] 100 mg PO DAILY 09/30/17 04/24/19 History Ergocalciferol (Vitamin D2) 1 tab PO SEEPHYS 06/30/18 04/24/19 History [Vitamin D2] Ezetimibe 1 tab PO DAILY 06/30/18 04/24/19 History Carbidopa/Levodopa [Sinemet] 1 tab PO TID tab 07/10/18 04/24/19 Rx traMADol HCl [Ultram] 50 mg PO Q6H PRN tab 12/03/18 04/24/19 Rx Cyclobenzaprine [Flexeril] 5 mg PO HS 04/24/19 04/24/19 History Ibuprofen 200 mg PO Q12H PRN 04/24/19 04/24/19 History Linagliptin [Tradjenta] 1 tab PO HS 04/24/19 04/24/19 History Psyllium Seed (With Sugar) 1 pk PO DAILY 04/24/19 04/24/19 History [Metamucil] Losartan Potassium 50 mg PO DAILY 04/25/19 04/25/19 History - History PMHx: Vit D deficiency, hypokalemia, hx of UTIs, wedge compression thoracic spine, muscle weakness, dementia, Parkinson's disease, DM II, HTN, HLD, depression PSHx: neck surgery, bladder suspension, left knee surgery s/p injury, appendectomy, cholecystectomy, hysterectomy FHx: noncontributory Social: lives in [facility], denies alcohol, drug or tobacco use - Review of Systems General: reports: weight/appetite/sleep changes (decreased). denies: fever/ chills, night sweats, fatigue Eyes: denies: vision changes ENT: denies: nasal congestion, rhinorrhea Respiratory: denies: cough, congestion, shortness of breath Cardiovascular: reports: chest pain. denies: palpitation, edema Gastrointestinal: reports: nausea, vomiting, constipation. denies: diarrhea, abdominal pain Genitourinary: denies: dysuria Skin: denies: rashes Musculoskeletal: reports: pain, stiffness Neurological: denies: weakness - Vital signs BP: 133/57, MAP: 82, Pulse: 89, Resp: 16, Temp: 98.4 (Oral), Pain: 0, O2 sat: 99 on (Room Air), Weight 82kg - Physical Exam Constitutional: NAD, awake, alert and oriented HEENT: normocephalic and atraumatic, PERRLA, EOMI, MMM Neck: supple, FROM, trachea midline -Chest: TTP of lower sternum Heart: RRR, normal S1/S2, no murmurs/rubs/gallops -Heart: chest pain with deep inspiration Lungs: CTAB, no respiratory distress, good air movement, no rales/rhonchi, no wheezing, no retractions Abdomen: soft, non-tender, bowel sounds present Musculoskeletal: normal structure -Musculoskeletal: TTP of left shoulder deltoid area Neurological: no focal deficit Skin: no rash/lesions, good turgor, capillary refill <2 seconds Heme/Lymphatic: no unusual bruising or bleeding, no purpura, no petechia -Psychiatric: able to state name, unable to state where she is or what town or year FMR H&P: Results - Labs Result Diagrams: 09/30/19 12:24 09/30/19 12:24 Lab results: WBC 16.5 thou/uL (4.8-10.8) H 09/30/19 12:24 Hgb 12.6 g/dL (12.0-16.0) 09/30/19 12:24 Hct 39.7 % (36.0-47.0) 09/30/19 12:24 MCV 85.6 fL (78.0-98.0) 09/30/19 12:24 Plt Count 270 thou/uL (130-400) 09/30/19 12:24 Neutrophils % 86.1 % (42.0-75.0) H 09/30/19 12:24 Sodium 142 mmol/L (136-145) 09/30/19 12:24 Potassium 2.8 mmol/L (3.5-5.1) L* 09/30/19 12:24 Chloride 105 mmol/L (98-107) 09/30/19 12:24 Carbon Dioxide 26 mmol/L (23-31) 09/30/19 12:24 BUN 32 mg/dL (9.8-20.1) H 09/30/19 12:24 Creatinine 1.23 mg/dL (0.6-1.1) H 09/30/19 12:24 Glucose 118 mg/dL (83-110) H 09/30/19 12:24 Calcium 9.6 mg/dL (7.8-10.44) 09/30/19 12:24 Total Bilirubin 0.6 mg/dL (0.2-1.2) 09/30/19 12:24 AST 10 U/L (5-34) 09/30/19 12:24 ALT Less than 7 U/L (8-55) L 09/30/19 12:24 Alkaline Phosphatase 82 U/L (40-110) 09/30/19 12:24 Creatine Kinase 15 U/L (29-168) L 09/30/19 12:24 Serum Total Protein 6.4 g/dL (6.0-8.3) 09/30/19 12:24 Albumin 3.5 g/dL (3.4-4.8) 09/30/19 12:24 Lipase 6 U/L (8-78) L 09/30/19 12:24 - EKG Interpretation EKG: Poor quality EKG. Read as ST elevation in Lead II by ED ZINC FURNACE CHARGER, no reciprocal changes and only minimally elevated on review. No T wave changes. - Radiology Interpretation Chest x-ray Status: report reviewed by me (no acute CPP) FMR H&P: A/P - Problem List (1) Hypokalemia Current Visit: Yes Status: Acute Code(s): E87.6 - HYPOKALEMIA (2) MACEY (acute kidney injury) Current Visit: Yes Status: Acute Code(s): N17.9 - ACUTE KIDNEY FAILURE, UNSPECIFIED (3) T12 compression fracture Current Visit: No Status: Acute Code(s): S22.080A - WEDGE COMPRESSION FRACTURE OF T11-T12 VERTEBRA, INIT Comment: mild, from fall prior to admission , treating pain with vicodin, no surgical management necessary (4) Diabetes mellitus Current Visit: No Status: Chronic Code(s): E11.9 - TYPE 2 DIABETES MELLITUS WITHOUT COMPLICATIONS Qualifiers: Diabetes mellitus type: type 2 Diabetes mellitus lobsterman insulin use: without skilled nursing use (5) Dyslipidemia Current Visit: No Status: Chronic Code(s): E78.5 - HYPERLIPIDEMIA, UNSPECIFIED (6) HTN (hypertension) Current Visit: No Status: Chronic Code(s): I10 - ESSENTIAL (PRIMARY) HYPERTENSION Qualifiers: Hypertension type: essential hypertension Qualified Code(s): I10 - Essential (primary) hypertension (7) Parkinson's disease Current Visit: No Status: Chronic Code(s): G20 - PARKINSON'S DISEASE - Plan 83yo [facility] resident with h/o Parkinson's, dementia presents for CP and altered mentation #Atypical Chest pain - Trop 0.013, VSS - Poor quality EKG, No reciprocal EKG changes, unilateral lead ST elevation in lead II - Will repeat EKG - Trend trop, monitor on tele - Associated nausea, will give PPI as possible GI origin - reproducible on exam, likely MSK pain from recent fall #Acute encephalopathy on underlying Parkinson's dementia - likely 2/2 dehydration and poor nutrition - A/O x3 at baseline per nursing staff - will check TSH - underlying Parkinson's, will cont home meds - will check UA #Hypokalemia - K 2.8, likely 2/2 poor nutrition - replace and monitor - Mg 2.0, will check Phos #MACEY - BUN 32, Cr 1.23 - likely prerenal, will give MIVF and recheck in AM #L shoulder pain - 2/2 fall 5 weeks ago, full active and passive ROM, diffuse msk tenderness to palpation, no nuno tenderness - tylenol prn #Wedge fracture - From fall >5wks ago, TLCO, APAP prn pain - PT/OT - outpt f/u #HTN - cont home meds #HLD - cont home meds #DMII - cont home meds and monitor PCP: CC - [place] - [place] Code: Full - per group home as pt is unable to make medical decisions 2/2 mentation. mPOA is Feli barnett [phone] IVF: LR @ 120cc/hr Diet: HH VTE: Lovenox Disposition/LOS: Admit to tele obs for hypokalemia and atypical chest pain. Monitor on tele, trend trops, monitoring mentation, workup pending. Anticipate LOS <48hrs. FMR H&P: Upper Level - Plan Date/Time: 09/30/19 1419 IGabby MD, have evaluated this patient and agree with findings/plan as outlined by general internal medicine doctor resident. Pertinent changes/additions are listed here. HPI: This is an 83 yo F presenting from a NH for left shoulder pain and chest pain. Patient with hx of dementia and hx is difficulty to obtain. Patient reports chest pain that started last night and has improved. Patient unsure what she was happening when it started last night. She states that her left shoulder pain has been going on for about a month. Denies any fever, chills, SOB , diarrhea, abdominal pain. Endorses nausea and vomiting x 1 last night. See general internal medicine doctor note for full histories. PE: General: NAD, resting comfortably in bed, fragile elderly Resp: CTAB, no crackles or rales Cardio: RRR, TTP of lower sternum, no murmurs rubs or gallops; pain with deep inspiration Abd: soft, non tender, non distended MSK: TTP of deltoid of left shoulder; no swelling in LE Neuro: non focal; strength 5/5 b/l upper extremities, sensation intact Psych: axox1, unable to state place, town, year A&P: Acute encephalopathy 2/2 dehydration vs UTI - UA pending - Will give IVF - [place] frequently Hypokalemia K 2.8 on admission. No EKG changes. s/p 40mEq in the ER. - Will give additional dose of potassium. Will continue to monitor and repeat BMP in the AM. - Repeat EKG Atypical chest pain with L shoulder pain - Trend trops, unlikely acute [place] MACEY BUN/Cr slightly elevated from baseline - Will give IVF and monitor All chronic conditions reviewed and will restart home meds. Dispo: admit to tele, LOS <48hrs VTE: lovenox Diet: CC Case discussed with Dr. Alston Addendum - Attending - Attending Attestation Date/Time: 09/30/19 7563 I personally evaluated the patient and discussed the management with Dr. Quiñones/ Sean. I agree with the History, Examination, Assessment and Plan documented above with any addition or exceptions noted below.
[2019-09-30 16:17] LABS: Troponin I 0.014 ng/mL (< 0.028)
[2019-09-30] MEDS ORDERED: Ondansetron PF 4 MG/2 ML Vial IVP PRN (17:40)
[2019-09-30] MEDS ORDERED: Potassium Chloride 20 MEQ TAB PO SCH (17:40)
[2019-09-30] MEDS ORDERED: Ondansetron ODT 4 MG TAB PO PRN (17:40)
[2019-09-30] MEDS ORDERED: Enoxaparin Sodium 40 MG/0.4 ML SYRINGE SC SCH (17:40)
[2019-09-30] MEDS ORDERED: Acetaminophen 325 MG TAB PO PRN (17:40)
[2019-09-30] MEDS ORDERED: Calcium Carbonate 500 MG ChewTAB PO PRN (17:40)
[2019-09-30] MEDS: Lactated Ringer's 1,000 ML IV SCH (18:00)
[2019-09-30] MEDS ORDERED: Dextrose 5% in Water 1,000 ML IV PRN (18:17)
[2019-09-30] MEDS ORDERED: Dextrose 50% Abboject 50 ML SYRINGE SLOW IVP PRN (18:17)
[2019-09-30 19:18] LABS: Phosphorus 2.5 mg/dL (2.3-4.7)
[2019-09-30 19:25] LABS: Troponin I 0.029 ng/mL (< 0.028)
[2019-09-30] MEDS: Famotidine 20 MG TAB PO SCH (20:41)
[2019-09-30 22:26] LABS: Troponin I 0.021 ng/mL (< 0.028)
[2019-09-30 23:16] LABS: Bilirubin Negative (Negative); Blood, Urine Negative (Negative); Clarity Clear (Clear); Glucose, Urine (Dipstick) Normal (Negative); Leukocyte 500 Leu/uL (Negative); Nitrite Negative (Negative); Protein, Urine (Dipstick) 30 mg/dL (Neg-Trace); RBC/HPF 0-3 HPF (0-3); Squamous Epithelial 0-3 HPF (0-3); Urobilinogen Normal mg/dL (Less than 2); WBC/HPF 21-50 HPF (0-3)
[2019-09-30 23:24] LABS: Bacteria/HPF 1+ HPF (None Seen); Renal Epithelial 0-3 HPF (None Seen)
[2019-09-30 23:25] LABS: Urine Culture Reflex Yes Yes
[2019-10-01] MEDS: cefTRIAXone\\ROCEPHIN 1 GM in Sodium Chloride 0.9% 100 ML IVPB SCH ×2 (00:05→22:05)
[2019-10-01] MEDS: Lactated Ringer's 1,000 ML IV SCH ×3 (02:51→19:02)
[2019-10-01 05:19] LABS: #Eosinphils 0.3 thou/uL (0.0-0.7); #Monocytes 0.7 thou/uL (0.11-0.59); #Neutrophils 8.2 thou/uL (1.40-6.50); %Basophils 0.1 % (0.0-1.0); %Eosinophils 2.9 % (0.0-10.0); %Lymphocytes 9.8 % (21.0-51.0); %Monocytes 6.8 % (0.0-10.0); %Neutrophils 80.4 % (42.0-75.0); Hemoglobin 10.6 g/dL (12.0-16.0); Mean Corpuscular HGB CONC 33.6 g/dL (32.0-36.0); Mean Corpuscular Hemoglobin 28.5 pg (27.0-31.0); Mean Corpuscular Volume 84.8 fL (78.0-98.0); Mean Platelet Volume 7.6 fL (7.4-10.4); Platelet Count 231 thou/uL (130-400); RBC Distribution Width 14.2 % (11.5-14.5); Red Blood Cell (RBC) Count 3.73 mill/uL (4.20-5.40); White Blood Cell (WBC) Count 10.2 thou/uL (4.8-10.8)
[2019-10-01 05:34] LABS: Anion Gap 10 mmol/L (10-20); BUN (Urea Nitrogen) 24 mg/dL (9.8-20.1); Calc. Creatinine Clearance 74 mL/min (70-130); Carbon Dioxide 26 mmol/L (23-31); Chloride 107 mmol/L (98-107); Estimated GFR-MDRD 86; Potassium 3.4 mmol/L (3.5-5.1); Sodium 140 mmol/L (136-145)
[2019-10-01 05:42] LABS: Glucose 46 mg/dL (83-110)
[2019-10-01] MEDS ORDERED: Simethicone Chewable 80 MG TAB PO PRN ×2 (06:27→06:53)
[2019-10-01] MEDS ORDERED: Potassium Chloride 20 MEQ TAB PO SCH (06:30)
--- NOTE | 2019-10-01 06:43 | PDOC.FM ---
- Subjective Subjective: Doing well this morning, no acute events overnight. A/O x1 this morning, appears unchanged from admission. Denies any pain, n/v. States low appetite. No fever/chills. Overall pleasant and no concerns for this morning. Nursing staff without concerns. - Objective MAR Reviewed: Yes Vital Signs & Weight: Vital Signs (12 hours) Temp Pulse Resp BP Pulse Ox 10/01/19 03:19 98.4 F 88 20 131/57 L 96 09/30/19 19:25 98.7 F 98 20 102/55 L 98 Weight Weight 69.944 kg I&O: 09/29/19 09/30/19 10/01/19 06:59 06:59 06:59 Intake Total 720 Balance 720 Result Diagrams: 10/01/19 04:32 10/01/19 04:32 EKG Reviewed by me: Yes (tele: run of PAT yesterday, otherwise NSR) Phys Exam - Physical Examination Constitutional: NAD (resting comfortably, pleasant, A/Ox1) dry MM Neck: supple Respiratory: no wheezing, no rales, no rhonchi, clear to auscultation bilateral Cardiovascular: RRR Gastrointestinal: soft, non-tender, no distention, positive bowel sounds Musculoskeletal: no edema Neurological: moves all 4 limbs Dx/Plan (1) Hypokalemia Code(s): E87.6 - HYPOKALEMIA Status: Acute (2) MACEY (acute kidney injury) Code(s): N17.9 - ACUTE KIDNEY FAILURE, UNSPECIFIED Status: Acute (3) T12 compression fracture Code(s): S22.080A - WEDGE COMPRESSION FRACTURE OF T11-T12 VERTEBRA, INIT Status: Acute (4) Diabetes mellitus Code(s): E11.9 - TYPE 2 DIABETES MELLITUS WITHOUT COMPLICATIONS Status: Chronic Qualifiers: Diabetes mellitus type: type 2 Diabetes mellitus alf insulin use: without remote computer terminal operator use (5) Dyslipidemia Code(s): E78.5 - HYPERLIPIDEMIA, UNSPECIFIED Status: Chronic (6) HTN (hypertension) Code(s): I10 - ESSENTIAL (PRIMARY) HYPERTENSION Status: Chronic Qualifiers: Hypertension type: essential hypertension Qualified Code(s): I10 - Essential (primary) hypertension (7) Parkinson's disease Code(s): G20 - PARKINSON'S DISEASE Status: Chronic - Plan Plan: 83yo [facility] resident with h/o Parkinson's, dementia presents for CP and altered mentation #Atypical Chest pain - Trop 0.013 -> 0.014 -> 0.029 -> 0.021 - Poor quality EKG, No reciprocal EKG changes, unilateral lead ST elevation in lead II. Repeat EKG with PAT. No acute events on tele other than 1 run of PAT. - Associated nausea, on H2 zia - reproducible on exam, likely MSK pain from recent fall - suspect MSK vs GERD in nature #Acute encephalopathy on underlying Parkinson's dementia - likely 2/2 dehydration and poor nutrition, hypoglycemia, possible UTI - A/O x3 at baseline per nursing staff, will contact next of kin to further discuss - TSH WNL - underlying Parkinson's, will cont home meds - UA 1+ bacteria, 500LE, 21-50WBC, 4-6 epithelial #Possible UTI - UA 1+ bacteria, 500LE, 21-50WBC, 4-6 epithelial - UCx pending - s/p Rocephin #Hypoglycemia - BG 40s x2, given D50 - likely 2/2 poor nutrition and on sulfonylurea, will discontinue med and encourage PO - monitor BG #Hypokalemia - K 2.8 -> 3.4, likely 2/2 poor nutrition - replace and monitor - Mg 2.0, Phos 2.5 #MACEY, resolved - BUN 32, Cr 1.23 -> 0.66 - resolved with IVF #L shoulder pain - 2/2 fall 5 weeks ago, full active and passive ROM, diffuse msk tenderness to palpation, no nuno tenderness - tylenol prn #Wedge fracture - From fall >5wks ago, TLCO, APAP prn pain - PT/OT - outpt f/u #In-hospital fall - fell getting positioned in bed at time of transfer to floor - did not hit head, no LOC, fell onto knees, no nuno tenderness - consider CT head and/or LE XR if sxs present - fall risk and precautions in place #HTN - cont home meds #HLD - cont home meds #DMII - cont home meds and monitor PCP: MARKOS Guerrero [place] - [place] Code: Full - per snf as pt is unable to make medical decisions 2/2 mentation. mPOA is Feli barnett [phone] IVF: LR @ 120cc/hr Diet: HH VTE: Lovenox Disposition/LOS: Admitted to tele obs for hypokalemia and atypical chest pain. Monitor on tele, trops neg, monitoring mentation, treating UTI. Anticipate LOS <48hrs with placement back to [facility]. Addendum - Attending - Attending Attestation Date/Time: 10/01/19 1036 I personally evaluated the patient and discussed the management with Dr. Quiñones. I agree with the History, Examination, Assessment and Plan documented above with any addition or exceptions noted below. Ruled out for ACS. Potassium repleted. Treating UTI and will try to determine her baseline mentation by discussing with MPOA.
[2019-10-01] MEDS ORDERED: SERTRALINE HCL PO SCH (09:00)
[2019-10-01] MEDS ORDERED: Non-Formulary Item 1 EACH (Cholestyramine (With Sugar) [Cholestyramine Packet] 1 PACKET) PO SCH (09:00)
[2019-10-01] MEDS ORDERED: Ezetimibe 10 MG TAB PO SCH (09:00)
[2019-10-01] MEDS ORDERED: Polyethylene Glycol 3350 17 GM Packet PO SCH (09:00)
[2019-10-01] MEDS ORDERED: Non-Formulary Item 1 EACH (Mirabegron [Myrbetriq] 50 MG) PO SCH (09:00)
[2019-10-01] MEDS ORDERED: Amlodipine 5 MG TAB PO SCH (09:00)
[2019-10-01] MEDS: Carbidopa/Levodopa 25-100 mg Tablet PO SCH ×3 (09:26→20:06)
[2019-10-01] MEDS: Polyethylene Glycol 3350 17 GM Packet PO SCH (09:26)
[2019-10-01] MEDS: Amlodipine 5 MG TAB PO SCH (09:26)
[2019-10-01] MEDS: Cholestyramine/Aspartame 4 gm Packet PO SCH (09:27)
[2019-10-01] MEDS: Famotidine 20 MG TAB PO SCH ×2 (09:27→20:06)
[2019-10-01] MEDS: Ezetimibe 10 MG TAB PO SCH (09:27)
[2019-10-01] MEDS: Enoxaparin Sodium 40 MG/0.4 ML SYRINGE SC SCH (09:27)
[2019-10-01 12:58] VITALS: BMI 26.8
--- NOTE | 2019-10-01 15:37 | RAD ---
2 VIEWS LEFT HIP: Date: 10/01/2019 PROVIDED CLINICAL HISTORY: Fall. FINDINGS: Portions of the pelvis are obscured on the frontal view by overlying material. Given this limitation, there is no evidence for fracture or other acute osseous abnormality. If there is persistent clinica l concern, conservative management and follow-up imaging are advised. IMPRESSION: As above. POS: BEN
--- NOTE | 2019-10-01 15:38 | RAD ---
RIGHT KNEE 3 VIEWS: Date: 10/01/2019 HISTORY: Fall. Right knee pain. FINDINGS/IMPRESSION: There are postop changes and metallic hardware in the patella. No acute fracture or dislocation is se en. No joint effusion identified. POS: TRINO
[2019-10-01] MEDS ORDERED: Alogliptin 25 MG TAB PO SCH (21:00)
[2019-10-01] MEDS ORDERED: Tamsulosin HCl 0.4 MG CAP PO SCH ×2 (21:00)
[2019-10-01] MEDS ORDERED: Amitriptyline HCl 25 MG TAB PO SCH ×2 (21:00)
[2019-10-01] MEDS ORDERED: LINAGLIPTIN PO SCH (21:00)
[2019-10-02] MEDS: Lactated Ringer's 1,000 ML IV SCH (02:55)
[2019-10-02] MEDS ORDERED: Lactated Ringer's 1,000 ML IV SCH (04:00)
[2019-10-02 04:49] LABS: Anion Gap 11 mmol/L (10-20); BUN (Urea Nitrogen) 10 mg/dL (9.8-20.1); Calc. Creatinine Clearance 88 mL/min (70-130); Calcium 8.7 mg/dL (7.8-10.44); Carbon Dioxide 25 mmol/L (23-31); Chloride 106 mmol/L (98-107); Estimated GFR-MDRD Greater than 90; Glucose 99 mg/dL (83-110); Potassium 3.3 mmol/L (3.5-5.1); Sodium 139 mmol/L (136-145)
[2019-10-02] MEDS ORDERED: Potassium Chloride 20 MEQ TAB PO SCH (06:30)
--- NOTE | 2019-10-02 07:17 | PDOC.FM ---
- Subjective Subjective: Doing very well, mentation much improved and appears at baseline. Worked with PT yesterday, favoring R side. Complaining of BL LE weakness since fall 5 weeks ago, no acute changes. No Numbness/tingling of LE. Tolerating PO well. No fever/ chills. Complaining of back pain, controlled with PO meds. Eager for discharge back to SNF. - Objective MAR Reviewed: Yes Vital Signs & Weight: Vital Signs (12 hours) Temp Pulse Resp BP BP Pulse Ox 10/02/19 03:02 99.3 F 90 19 121/56 L 95 10/01/19 23:24 99.3 F 96 21 H 153/67 H 94 L 10/01/19 19:54 98.7 F 100 17 140/66 140/66 97 Weight Admit Weight 69.944 kg Weight 70.942 kg I&O: 10/01/19 10/02/19 10/03/19 06:59 06:59 06:59 Intake Total 2240 2600 Output Total 250 2050 Balance 1989 550 Result Diagrams: 10/01/19 04:32 10/02/19 04:02 EKG Reviewed by me: Yes (Tele: NSR) Phys Exam - Physical Examination Constitutional: NAD (resting comfortably, good spirits) HEENT: moist MMs Neck: supple Respiratory: no wheezing, no rales, no rhonchi, clear to auscultation bilateral Cardiovascular: RRR, no significant murmur, no rub Gastrointestinal: soft, non-tender, no distention, positive bowel sounds Musculoskeletal: no edema TLCO in place. 4/5 strength BL LE. No bony TTP, normal sensation Dx/Plan (1) Hypokalemia Code(s): E87.6 - HYPOKALEMIA Status: Acute (2) MACEY (acute kidney injury) Code(s): N17.9 - ACUTE KIDNEY FAILURE, UNSPECIFIED Status: Acute (3) T12 compression fracture Code(s): S22.080A - WEDGE COMPRESSION FRACTURE OF T11-T12 VERTEBRA, INIT Status: Acute (4) Diabetes mellitus Code(s): E11.9 - TYPE 2 DIABETES MELLITUS WITHOUT COMPLICATIONS Status: Chronic Qualifiers: Diabetes mellitus type: type 2 Diabetes mellitus drying oven tender insulin use: without drying oven tender use (5) Dyslipidemia Code(s): E78.5 - HYPERLIPIDEMIA, UNSPECIFIED Status: Chronic (6) HTN (hypertension) Code(s): I10 - ESSENTIAL (PRIMARY) HYPERTENSION Status: Chronic Qualifiers: Hypertension type: essential hypertension Qualified Code(s): I10 - Essential (primary) hypertension (7) Parkinson's disease Code(s): G20 - PARKINSON'S DISEASE Status: Chronic - Plan Plan: 83yo [facility] resident with h/o Parkinson's, dementia presents for CP and altered mentation #Atypical Chest pain, resolved - Trop 0.013 -> 0.014 -> 0.029 -> 0.021 - Poor quality EKG, No reciprocal EKG changes, unilateral lead ST elevation in lead II. Repeat EKG with PAT. No acute events on tele other than 1 run of PAT and 0 run of SVT since admission. - Associated nausea, on H2 zia - reproducible on exam, likely MSK pain from recent fall - suspect MSK vs GERD in nature #Acute encephalopathy on underlying Parkinson's dementia, improved - likely 2/2 dehydration and poor nutrition, hypoglycemia, possible UTI - A/O x3 at baseline per nursing staff, daughter contacted for further baseline information - mentation improved this morning, appears at baseline.\ - TSH WNL - underlying Parkinson's, will cont home meds - UA 1+ bacteria, 500LE, 21-50WBC, 4-6 epithelial #Possible UTI - UA 1+ bacteria, 500LE, 21-50WBC, 4-6 epithelial - UCx pending - cont Rocephin 2/3 doses #Hypoglycemia, resolved - BG 40s x2, given D50 - likely 2/2 poor nutrition and on sulfonylurea, will discontinue med and encourage PO - monitor BG #Hypokalemia - K 2.8 -> 3.4, likely 2/2 poor nutrition - replace and monitor - Mg 2.0, Phos 2.5 #MACEY, resolved - BUN 32, Cr 1.23 -> 0.66 - resolved with IVF #L shoulder pain - 2/2 fall 5 weeks ago, full active and passive ROM, diffuse msk tenderness to palpation, no nuno tenderness - tylenol prn #Wedge fracture - From fall >5wks ago, TLCO, APAP prn pain - PT/OT - outpt f/u #In-hospital fall - fell getting positioned in bed at time of transfer to floor - did not hit head, no LOC, fell onto knees, no nuno tenderness. Worked with PT. No acute changes on PE. Pt not complaining of new pains. - R knee and hip XR without acute fractures - fall risk and precautions in place #HTN - cont home meds #HLD - cont home meds #DMII - cont home meds and monitor PCP: MARKOS STALLWORTH - [place] Code: Full - per intermediate as pt is unable to make medical decisions 2/2 mentation. mPOA is Feli barnett [phone] IVF: SL Diet: HH VTE: Lovenox Disposition/LOS: Admitted to tele obs for hypokalemia and atypical chest pain. Monitor on tele, trops neg, monitoring mentation, treating UTI. Anticipate LOS <48hrs with placement back to [facility] today. Addendum - Attending - Attending Attestation Date/Time: 10/02/19 4279 I personally evaluated the patient and discussed the management with Dr. Quiñones. I agree with the History, Examination, Assessment and Plan documented above with any addition or exceptions noted below. Mentation at baseline. Treated adequately for UTI. Stable for dc back to intermediate.
[2019-10-02] MEDS: Amlodipine 5 MG TAB PO SCH (07:46)
[2019-10-02] MEDS: Carbidopa/Levodopa 25-100 mg Tablet PO SCH ×2 (07:47→14:00)
[2019-10-02] MEDS: Cholestyramine/Aspartame 4 gm Packet PO SCH (07:47)
[2019-10-02] MEDS: Ezetimibe 10 MG TAB PO SCH (07:48)
[2019-10-02] MEDS: Enoxaparin Sodium 40 MG/0.4 ML SYRINGE SC SCH (07:48)
[2019-10-02] MEDS: Famotidine 20 MG TAB PO SCH (07:48)
[2019-10-02] MEDS: Polyethylene Glycol 3350 17 GM Packet PO SCH (07:49)
[2019-10-02] MEDS ORDERED: cefTRIAXone\\ROCEPHIN 1 GM in Sodium Chloride 0.9% 100 ML IVPB SCH (12:00)
[2019-10-02 12:19] VITALS: BP 141/62; TEMP 98.5
--- NOTE | 2019-10-02 14:35 | EKG ---
Test Reason : Blood Pressure : / mmHG Vent. Rate : 129 BPM Atrial Rate : 187 BPM P-R Int : 000 ms QRS Dur : 068 ms QT Int : 298 ms P-R-T Axes : 000 041 067 degrees QTc Int : 436 ms Atrial fibrillation Normal sinus rhythm ST elevation, consider early repolarization, pericarditis, or injury Abnormal ECG Confirmed by JESSIKA STEVENSON ([id number]) on 10/02/2019 2:35:01 PM Referred By: GURINDER BASSETT Confirmed By:JESSIKA STEVENSON
--- NOTE | 2019-10-03 04:02 | DIS ---
DATE OF ADMISSION: 09/30/2019 DATE OF DISCHARGE: 10/02/2019 RESIDENT: Kwame Quiñones MD ADMITTING ATTENDING: Damián Alston MD DISCHARGE ATTENDING: Damián Alston MD. CONSULTS: None. PROCEDURES: 1. Chest x-ray on 09/30/2019, demonstrating no acute cardiopulmonary findings. 2. Right hip x-ray on 10/01/2019, demonstrating no evidence for fracture or other acute osseous abnormality. 3. Right knee x-ray on 10/01/2019, demonstrating postop changes of metallic hardware. No acute fracture or dislocation. PRIMARY DIAGNOSES: 1. Atypical chest pain, resolved. 2. Acute encephalopathy, underlying Parkinson's dementia, improved. 3. Urinary tract infection. 4. Hypoglycemia, resolved. 5. Hypokalemia, resolved. 6. Acute kidney injury, resolved. SECONDARY DIAGNOSES: 1. Left shoulder pain from fall 5 weeks ago. 2. Wedge fracture. 3. In-hospital fall. 4. Hypertension. 5. Hyperlipidemia. 6. Type 2 diabetic. DISCHARGE MEDICATIONS: 1. Zoloft 50 mg two tablets p.o. daily. 2. Myrbetriq 50 mg p.o. daily. 3. Zetia 10 mg p.o. daily. 4. Vitamin D 48062 units one tablet as directed. 5. Sinemet 1 tablet p.o. t.i.d. 6. Tramadol 50 mg p.o. q.6 hours p.r.n. 7. Ibuprofen 600 mg p.o. t.i.d. p.r.n. 8. Tradjenta 5 mg p.o. at bedtime. 9. Milk of magnesia 30 mL p.o. daily p.r.n. 10. Imodium 1 capsule p.o. p.r.n. 11. Lidocaine patch one patch daily. 12. MiraLAX 1 packet p.o. daily. 13. Simethicone one tablet p.o. q.8 hours p.r.n. 14. Zofran 4 mg p.o. q.6 hours p.r.n. 15. Flomax 0.4 mg p.o. at bedtime. 16. Cholestyramine packet one packet p.o. daily. 17. Calcium carbonate 500 mg two tablets p.o. q.6 hours p.r.n. 18. Butrans patch apply one patch transdermally as directed. 19. Bisacodyl 1 suppository per rectum b.i.d. p.r.n. 20. Norvasc 5 mg p.o. daily. 21. Elavil 25 mg p.o. at bedtime. 22. Acetaminophen 500 mg p.o. q.4 hours p.r.n. 23. Nystatin 100,000 units topical b.i.d. DISCONTINUED MEDICATIONS: 1. Clonidine 0.1 mg p.o. q.6 hours p.r.n. 2. Amaryl 2 mg p.o. q.a.m. with meals. HISTORY OF PRESENT ILLNESS AND HOSPITAL COURSE: The patient is an 83[facility], who was sent over for atypical chest pain. She has a history of Parkinson's dementia and recently had a fall approximately 5 weeks ago resulting in a spinal wedge fracture and is in a TLSO, waiting further evaluation for this. Regarding the patient's atypical chest pain, initial EKG did not show any acute changes suggestive of [place] and she did have unilateral ST elevation in lead 2, but no reciprocal changes. Repeat EKG showed paroxysmal atrial tachycardia. She was monitored on telemetry without any acute events and troponins were trended and negative. She did have associated nausea and this improved with an H2 zia. Her chest pain was reproducible with palpation and thus this pain was likely musculoskeletal in nature. The patient also had acute encephalopathy on top of her underlying Parkinson's dementia. This improved with rehydration and increased p.o. intake. The patient was also mildly hypoglycemic at presentation with blood glucose in the 40s. This responded with D50. Her Amaryl was discontinued as this is likely contributing to her hypoglycemia along with her poor p.o. intake. The patient was encouraged for p.o. intake. The patient also had a possible UTI with urinalysis of 1+ bacteria , 500 leukocyte esterase, 21-50 WBCs and 4-6 epithelial cells. Urine culture was pending at the time of discharge. The patient did receive three doses of Rocephin thus adequately treating an uncomplicated UTI. The patient also presented with mild hypokalemia of 2.8, it was replaced and monitored as needed. The patient also presented with a mild MACEY with creatinine of 1.23. It has improved with IV fluid hydration to a creatinine of 0.66 at the time of discharge. The patient also had an in-hospital fall at the time of transfer from wheelchair to hospital bed at admission. She slid off the side of the bed and on to her knees. The patient did not hit her head. She had no loss of consciousness and no focal deficit afterwards. The patient was examined and had no significant lower extremity pain. She had bilateral lower extremity weakness that is chronic in nature, for which she is receiving physical therapy at [facility]. Patient did not complain of any new pain or discomfort after initial fall. The following day, physical therapy did work with the patient and noticed a slightly worsening weakness on her right side and the patient is complaining of mild pain. Thus, x-rays of the right knee and hip were obtained, it did not show any acute fractures. The patient was continued with her TLSO brace and will need continued followup with this as an outpatient. Fall precautions were in place for the patient during the hospitalization. Regarding the patient's current medical conditions, her home medications were continued. Overall, the patient's mentation improved at the time of discharge. She was A and O x2, and appeared at baseline mentation per report from nursing facility and patient's daughter. The patient received adequate treatment for her UTI and her chest pain did not appear cardiac in nature. Discharge plan was discussed with daughter, who voiced agreement and understanding of discharge plan to return to [facility] for continued physical therapy and rehab. All questions were answered appropriately. DISPOSITION: Stable. DISCHARGE INSTRUCTIONS: 1. Location: [facility]. 2. Diet: Consistent carb. 3. Activity: Orthopedic limitations advanced per physical therapy recommendations. 4. Followup: The patient to follow up with her pain doctor and PCP as previously directed. Job ID: [id number] [facility]
== END 2019-10-02 14:33 ==
LOC: ERS 11:46 → 2NO 17:08
PROVIDERS: ADMIT Student in an Organized Health Care Education/Training Program; ATTEND Student in an Organized Health Care Education/Training Program
DX: R07.89 Other chest pain (principal); G93.40 Encephalopathy, unspecified; G20 Parkinson's disease; F02.80 Dementia in other diseases classified elsewhere, unspecified severity, without behavioral disturbance, psychotic disturbance, mood disturbance, and anxiety; N39.0 Urinary tract infection, site not specified; E16.2 Hypoglycemia, unspecified; E87.6 Hypokalemia; N17.9 Acute kidney failure, unspecified; I10 Essential (primary) hypertension; E11.9 Type 2 diabetes mellitus without complications; S22.000A Wedge compression fracture of unspecified thoracic vertebra, initial encounter for closed fracture; M25.512 Pain in left shoulder; E78.5 Hyperlipidemia, unspecified; F32.9 Major depressive disorder, single episode, unspecified; Z79.84 Long term (current) use of oral hypoglycemic drugs; Z79.899 Other long term (current) drug therapy; Z88.0 Allergy status to penicillin; Z88.2 Allergy status to sulfonamides; Z88.5 Allergy status to narcotic agent; Z88.8 Allergy status to other drugs, medicaments and biological substances; Z91.013 Allergy to seafood; Z91.041 Radiographic dye allergy status; Z91.048 Other nonmedicinal substance allergy status
CPT/HCPCS: 71045; 73502; 73562; 80048 ×2; 81001; 82550; 82962 ×3; 83690; 83735; 84100; 84484 ×2; 85025; 87086; 93005; 94760; 96365; 96372 ×3; 96375; 96376; 97110; 97139 ×3; 97530 ×2; 97535; 99285; G0378 ×4; J0696 ×2; J1650 ×3; J3490 ×2; 36415; 36416; 80053; 84443; 93010

== ENCOUNTER 2020-10-15 14:07 | Outpatient (CLI) | payer MEDICARE, MEDICAID | END 2020-10-15 14:08 | disposition home or self-care (01) | LOC: BICMAMMO 14:07 | PROVIDERS: ATTEND Family Medicine | DX: N64.52 Nipple discharge (principal); Z80.3 Family history of malignant neoplasm of breast | CPT/HCPCS: 76642; 77066; G0279 ==

== ENCOUNTER 2021-03-10 12:33 | Outpatient (CLI) | payer MEDICARE, MEDICAID ==
[2021-03-10 14:46] LABS: #Eosinphils 0.7 10x3/uL (0.0-0.5); #Monocytes 0.5 10x3/uL (0.0-1.1); #Neutrophils 5.2 10x3/uL (1.5-8.4); %Basophils 0.6 % (0.0-2.0); %Eosinophils 9.2 % (0.0-6.0); %Lymphocytes 10.6 % (18.0-47.0); %Monocytes 6.5 % (0.0-10.0); %Neutrophils 72.5 % (40.0-75.0); Mean Corpuscular HGB CONC 32.2 g/dL (32.0-36.0); Mean Corpuscular Hemoglobin 27.3 pg (27.0-33.0); Mean Corpuscular Volume 84.7 fl (81.6-98.3); Mean Platelet Volume 9.8 fl (7.4-10.4); Platelet Count 269 10x3/uL (150-450); RBC Distribution Width 13.6 % (11.5-14.5); Red Blood Cell (RBC) Count 4.77 10x6/uL (3.90-5.03); White Blood Cell (WBC) Count 7.2 10x3/uL (3.5-10.5)
[2021-03-10 15:09] LABS: ALT (SGPT) 22 U/L (8-55); AST (SGOT) 25 U/L (5-34); Albumin 4.3 g/dL (3.4-4.8); Alkaline Phosphatase 88 U/L (40-110); Anion Gap 15 mmol/L (10-20); BUN (Urea Nitrogen) 15 mg/dL (9.8-20.1); Bilirubin, Total 0.5 mg/dL (0.2-1.2); Calc. Creatinine Clearance 0 mL/min (70-130); Calcium 10.3 mg/dL (7.8-10.44); Carbon Dioxide 25 mmol/L (23-31); Chloride 105 mmol/L (98-107); Globulin 3.3 g/dL (2.4-3.5); Glucose 157 mg/dL (83-110); Potassium 4.3 mmol/L (3.5-5.1); Protein, Total 7.6 g/dL (5.8-8.1); Sodium 141 mmol/L (136-145)
[2021-03-11 00:50] LABS: SARS-CoV-2 PCR by NAA Not Detected (NotDetected)
== END 2021-03-10 12:34 | disposition home or self-care (01) ==
LOC: LABBT 12:33
PROVIDERS: ATTEND Surgery
DX: Z01.818 Encounter for other preprocedural examination (principal); K64.9 Unspecified hemorrhoids; Z20.822 Contact with and (suspected) exposure to COVID-19
CPT/HCPCS: 80053; 85025; 93005; U0003; U0005; 93010

== ENCOUNTER 2021-03-15 06:12 | Day surgery (SDC) | payer MEDICARE, MEDICAID ==
[2019-04-24 16:03] VITALS: BMI 30.1
[2021-03-15] MEDS ORDERED: Fentanyl 100 MCG/2 ML VIAL ONE (06:15)
[2021-03-15] MEDS ORDERED: Bacitracin Zinc Ointment 30 gm TUBE ONE (06:46)
[2021-03-15] MEDS ORDERED: Bupivacaine 0.25% HCL 30 ML VIAL ONE (06:46)
[2021-03-15] MEDS ORDERED: EPINEPHrine 1 MG/ML AMP ONE (06:46)
[2021-03-15] MEDS ORDERED: Scopolamine 1.5 mg/72 hour Patch ONE (07:15)
[2021-03-15] MEDS ORDERED: Levofloxacin 500 mg/D5W 100 ml Premix Bag ONE (07:15)
[2021-03-15] MEDS ORDERED: Dexamethasone 20 MG/5 ML VIAL ONE (07:37)
[2021-03-15] MEDS ORDERED: PHENYLEPHRINE-NS 100 MCG/ML 10 ML SYRINGE ONE (07:37)
[2021-03-15] MEDS ORDERED: PROPOFOL 200 MG/20 ML VIAL ONE (07:37)
[2021-03-15] MEDS ORDERED: Lidocaine 1% PF 5 ML VIAL ONE (07:37)
[2021-03-15] MEDS ORDERED: Rocuronium Bromide 10 MG/ML (10ML VIAL) ONE (07:37)
[2021-03-15] MEDS ORDERED: Ondansetron PF 4 MG/2 ML Vial ONE (07:37)
[2021-03-15] MEDS ORDERED: SUGAMMADEX SODIUM 200 MG/2 ML VIAL ONE (08:22)
== END 2021-03-15 13:15 | disposition home or self-care (01) ==
LOC: SDC 06:12
PROVIDERS: ATTEND Surgery
PROC: 06BY3ZC Excision of Hemorrhoidal Plexus, Percutaneous Approach (ICD-10-PCS; principal; 2021-03-15)
DX: K64.2 Third degree hemorrhoids (principal); I10 Essential (primary) hypertension; E78.5 Hyperlipidemia, unspecified; M19.90 Unspecified osteoarthritis, unspecified site; G89.29 Other chronic pain; M54.9 Dorsalgia, unspecified; M54.2 Cervicalgia; M25.519 Pain in unspecified shoulder; G43.909 Migraine, unspecified, not intractable, without status migrainosus; E11.9 Type 2 diabetes mellitus without complications; K21.9 Gastro-esophageal reflux disease without esophagitis; M85.80 Other specified disorders of bone density and structure, unspecified site; Z79.899 Other long term (current) drug therapy; Z88.0 Allergy status to penicillin; Z88.1 Allergy status to other antibiotic agents; Z88.2 Allergy status to sulfonamides; Z88.5 Allergy status to narcotic agent; Z88.8 Allergy status to other drugs, medicaments and biological substances; Z91.013 Allergy to seafood; Z91.041 Radiographic dye allergy status
CPT/HCPCS: 88304; J0171; J1956; J3010; S0020

== ENCOUNTER 2022-09-22 13:32 | Outpatient (CLI) | payer MEDICARE, MEDICAID | END 2022-09-22 13:33 | disposition home or self-care (01) | LOC: CT 13:32 | PROVIDERS: ATTEND Family Medicine | DX: R10.84 Generalized abdominal pain (principal); N20.0 Calculus of kidney; S22.081D Stable burst fracture of T11-T12 vertebra, subsequent encounter for fracture with routine healing; S32.021D Stable burst fracture of second lumbar vertebra, subsequent encounter for fracture with routine healing; Z90.49 Acquired absence of other specified parts of digestive tract; Z90.710 Acquired absence of both cervix and uterus | CPT/HCPCS: 74176; 74177 ==

== ENCOUNTER 2023-04-07 14:28 | Inpatient (IN) | payer MEDICARE, MEDICAID ==
[~2023-04-07 14:28] MED LIST: Iopamidol-370 76% 500 ML MDV (1 ML CHARGE) ONE
[2023-04-07 15:29] LABS: #Eosinphils 0.2 thou/uL (0.0-0.7); #Monocytes 0.7 thou/uL (0.11-0.59); #Neutrophils 5.3 thou/uL (1.40-6.50); %Basophils 0.3 % (0.0-1.0); %Eosinophils 3.2 % (0.0-10.0); %Lymphocytes 9.6 % (21.0-51.0); %Monocytes 9.6 % (0.0-10.0); %Neutrophils 76.7 % (42.0-75.0); Hematocrit 38.4 % (36.0-47.0); Hemoglobin 12.5 g/dL (12.0-16.0); Mean Corpuscular HGB CONC 32.6 g/dL (32.0-36.0); Mean Corpuscular Hemoglobin 28.6 pg (27.0-31.0); Mean Corpuscular Volume 87.9 fl (78.0-98.0); Mean Platelet Volume 9.9 fL (7.4-10.4); Platelet Count 188 10x3/uL (130-400); RBC Distribution Width 13.5 % (11.5-14.5); Red Blood Cell (RBC) Count 4.37 mill/uL (4.20-5.40); White Blood Cell (WBC) Count 6.9 10x3/uL (4.8-10.8)
[2023-04-07 15:46] LABS: ALT (SGPT) Less than 7 U/L (8-55); AST (SGOT) 21 U/L (5-34); Albumin 4.5 g/dL (3.4-4.8); Alkaline Phosphatase 80 U/L (40-110); Anion Gap 16 mmol/L (10-20); BUN (Urea Nitrogen) 19 mg/dL (9.8-20.1); Bilirubin, Total 0.6 mg/dL (0.2-1.2); Calc. Creatinine Clearance 0 mL/min (70-130); Calcium 9.6 mg/dL (7.8-10.44); Carbon Dioxide 20 mmol/L (23-31); Chloride 107 mmol/L (98-107); Estimated GFR 51; Globulin 2.9 g/dL (2.4-3.5); Glucose 139 mg/dL (83-110); Potassium 4.4 mmol/L (3.5-5.1); Protein, Total 7.4 g/dL (5.8-8.1); Sodium 139 mmol/L (136-145)
[2023-04-07 15:50] LABS: Troponin I Less than 0.010 ng/mL (< 0.028)
[2023-04-07 17:31] LABS: Bacteria/HPF None Seen HPF (None Seen); Bilirubin Negative (Negative); Blood, Urine Trace (Negative); CAUTI Indications for Culture Alt mental st,lethar; Clarity Clear (Clear); Glucose, Urine (Dipstick) Normal (Negative); Ketone, Urine Trace mg/dL (Negative); Leukocyte Negative Leu/uL (Negative); Nitrite Negative (Negative); Protein, Urine (Dipstick) Negative (Neg-Trace); Squamous Epithelial None Seen HPF (0-3); Urobilinogen Normal mg/dL (Less than 2); WBC/HPF 0-3 HPF (0-3); pH, Urine 6.5 (5.0-9.0)
[2023-04-07 17:38] LABS: Specific Gravity, Urine 1.043 (1.002-1.036)
[2023-04-07 17:39] LABS: Urine Culture Reflex No No
[2023-04-07] MEDS ORDERED: hydrALAZINE 20 MG/ML VIAL SLOW IVP PRN (18:31)
[2023-04-07] MEDS ORDERED: traMADol HCl 50 MG TAB PO PRN (18:31)
[2023-04-07] MEDS ORDERED: HumaLOG 300 UNITS/3 ML VIAL SC PRN ×2 (18:37)
[2023-04-07] MEDS ORDERED: Dextrose 5% in Water 1,000 ML IV PRN (18:37)
[2023-04-07] MEDS ORDERED: Dextrose 50% Abboject 50 ML SYRINGE SLOW IVP PRN (18:37)
[2023-04-07] MEDS ORDERED: Glucagon 1 MG/ML KIT IM PRN (18:37)
[2023-04-07] MEDS ORDERED: Carbidopa/Levodopa 25-100 mg Tablet PO SCH (18:45)
[2023-04-07] MEDS ORDERED: Mirabegron ER 25 MG ER.TAB PO SCH (21:00)
[2023-04-08 02:51] VITALS: BMI 27.0
[2023-04-08] MEDS: Carbidopa/Levodopa 25-100 mg Tablet PO SCH ×4 (03:32→20:44)
[2023-04-08] MEDS: Famotidine 20 MG TAB PO SCH ×3 (03:33→20:44)
[2023-04-08] MEDS: Colestipol 1 GM TAB PO SCH ×3 (03:34→21:47)
[2023-04-08 05:31] LABS: #Monocytes 0.6 thou/uL (0.11-0.59); #Neutrophils 3.6 thou/uL (1.40-6.50); %Basophils 0.2 % (0.0-1.0); %Eosinophils 0.9 % (0.0-10.0); %Lymphocytes 9.2 % (21.0-51.0); %Monocytes 12.2 % (0.0-10.0); %Neutrophils 77.1 % (42.0-75.0); Hematocrit 34.8 % (36.0-47.0); Hemoglobin 11.6 g/dL (12.0-16.0); Mean Corpuscular HGB CONC 33.3 g/dL (32.0-36.0); Mean Corpuscular Hemoglobin 28.2 pg (27.0-31.0); Mean Platelet Volume 10.1 fL (7.4-10.4); Platelet Count 163 10x3/uL (130-400); RBC Distribution Width 13.4 % (11.5-14.5); Red Blood Cell (RBC) Count 4.11 mill/uL (4.20-5.40); White Blood Cell (WBC) Count 4.7 10x3/uL (4.8-10.8)
[2023-04-08 05:35] LABS: Mean Corpuscular Volume 84.7 fl (78.0-98.0)
[2023-04-08 05:56] LABS: Anion Gap 14 mmol/L (10-20); BUN (Urea Nitrogen) 17 mg/dL (9.8-20.1); Calc. Creatinine Clearance 55 mL/min (70-130); Calcium 9.3 mg/dL (7.8-10.44); Carbon Dioxide 23 mmol/L (23-31); Cardiac Risk 3.1 (Less than 4.5); Chloride 105 mmol/L (98-107); Cholesterol 137 mg/dl (< 200 Desired); Estimated GFR 68; Glucose 114 mg/dL (83-110); HDL Cholesterol 44 mg/dL (>60 Neg Risk); LDL Cholesterol, Calculated 79 mg/dL; Potassium 3.8 mmol/L (3.5-5.1); Sodium 138 mmol/L (136-145); Triglycerides 71 mg/dL (Less than 150)
[2023-04-08] MEDS ORDERED: FLU VACC QS2023(65UP)/MF59C/PF 60 MCG/0.5 ML SYRINGE IM ONE (09:00)
[2023-04-08] MEDS ORDERED: Sertraline 100 MG TAB PO SCH (09:00)
[2023-04-08] MEDS: Ezetimibe 10 MG TAB PO SCH (09:51)
[2023-04-08] MEDS ORDERED: Lorazepam 2 MG/ML VIAL SLOW IVP PRN (14:42)
[2023-04-08] MEDS: Mirabegron ER 25 MG ER.TAB PO SCH (20:43)
[2023-04-09 06:29] LABS: Anion Gap 16 mmol/L (10-20); BUN (Urea Nitrogen) 17 mg/dL (9.8-20.1); Calc. Creatinine Clearance 54 mL/min (70-130); Calcium 8.8 mg/dL (7.8-10.44); Carbon Dioxide 22 mmol/L (23-31); Chloride 105 mmol/L (98-107); Estimated GFR 66; Glucose 100 mg/dL (83-110); Sodium 139 mmol/L (136-145)
[2023-04-09] MEDS: Amlodipine 5 MG TAB PO SCH (08:51)
[2023-04-09] MEDS: Losartan 25 MG TAB PO SCH (08:51)
[2023-04-09] MEDS: Ezetimibe 10 MG TAB PO SCH (08:51)
[2023-04-09] MEDS: Famotidine 20 MG TAB PO SCH ×2 (08:51→21:28)
[2023-04-09] MEDS: Carbidopa/Levodopa 25-100 mg Tablet PO SCH ×4 (08:51→21:29)
[2023-04-09] MEDS: Sertraline 100 MG TAB PO SCH (08:51)
[2023-04-09] MEDS: Colestipol 1 GM TAB PO SCH ×4 (09:00→22:00)
[2023-04-09] MEDS ORDERED: Lorazepam 2 MG/ML VIAL SLOW IVP PRN (10:15)
[2023-04-09] MEDS: Sodium Chloride 0.9% 1,000 ML IV SCH (16:40)
[2023-04-09 18:15] LABS: SARS-CoV-2 NAA Rapid Test DETECTED (NotDetected)
[2023-04-09] MEDS: Mirabegron ER 25 MG ER.TAB PO SCH (21:28)
[2023-04-10] MEDS: Sodium Chloride 0.9% 1,000 ML IV SCH ×3 (04:45→18:39)
[2023-04-10 06:04] LABS: Anion Gap 14 mmol/L (10-20); BUN (Urea Nitrogen) 19 mg/dL (9.8-20.1); Calc. Creatinine Clearance 61 mL/min (70-130); Calcium 8.5 mg/dL (7.8-10.44); Carbon Dioxide 20 mmol/L (23-31); Chloride 109 mmol/L (98-107); Estimated GFR 77; Glucose 105 mg/dL (83-110); Potassium 3.6 mmol/L (3.5-5.1); Sodium 139 mmol/L (136-145)
[2023-04-10] MEDS: Famotidine 20 MG TAB PO SCH ×2 (10:17→21:41)
[2023-04-10] MEDS: Ezetimibe 10 MG TAB PO SCH (10:17)
[2023-04-10] MEDS: Losartan 25 MG TAB PO SCH (10:17)
[2023-04-10] MEDS: Amlodipine 5 MG TAB PO SCH (10:17)
[2023-04-10] MEDS: Carbidopa/Levodopa 25-100 mg Tablet PO SCH ×3 (10:17→21:41)
[2023-04-10] MEDS: Sertraline 100 MG TAB PO SCH (10:17)
[2023-04-10] MEDS: Colestipol 1 GM TAB PO SCH ×2 (10:36→21:42)
[2023-04-10] MEDS: Mirabegron ER 25 MG ER.TAB PO SCH (21:41)
[2023-04-11] MEDS: Amlodipine 5 MG TAB PO SCH (09:00)
[2023-04-11] MEDS: Losartan 25 MG TAB PO SCH (09:00)
[2023-04-11] MEDS: Famotidine 20 MG TAB PO SCH ×2 (09:00→21:06)
[2023-04-11] MEDS: Sertraline 100 MG TAB PO SCH (09:00)
[2023-04-11] MEDS: Ezetimibe 10 MG TAB PO SCH (09:00)
[2023-04-11] MEDS: Colestipol 1 GM TAB PO SCH ×2 (09:00→09:39)
[2023-04-11] MEDS: Carbidopa/Levodopa 25-100 mg Tablet PO SCH ×3 (09:01→21:06)
[2023-04-11] MEDS: Ondansetron PF 4 MG/2 ML Vial IVP PRN (11:25)
[2023-04-11] MEDS: traMADol HCl 50 MG TAB PO PRN ×2 (11:25→21:07)
[2023-04-11] MEDS: Sodium Chloride 0.9% 1,000 ML IV SCH (16:29)
[2023-04-11] MEDS: Mirabegron ER 25 MG ER.TAB PO SCH (21:06)
[2023-04-11] MEDS: Cholestyramine/Aspartame 4 gm Packet PO SCH (21:06)
[2023-04-12 05:12] LABS: #Eosinphils 0.1 thou/uL (0.0-0.7); #Monocytes 0.3 thou/uL (0.11-0.59); #Neutrophils 1.8 thou/uL (1.40-6.50); %Eosinophils 4.6 % (0.0-10.0); %Lymphocytes 25.7 % (21.0-51.0); %Monocytes 10.5 % (0.0-10.0); %Neutrophils 58.9 % (42.0-75.0); Hematocrit 31.4 % (36.0-47.0); Hemoglobin 10.3 g/dL (12.0-16.0); Mean Corpuscular HGB CONC 32.8 g/dL (32.0-36.0); Mean Corpuscular Hemoglobin 28.3 pg (27.0-31.0); Mean Corpuscular Volume 86.3 fl (78.0-98.0); Mean Platelet Volume 10.1 fL (7.4-10.4); Platelet Count 133 10x3/uL (130-400); RBC Distribution Width 13.5 % (11.5-14.5); Red Blood Cell (RBC) Count 3.64 mill/uL (4.20-5.40)
[2023-04-12 05:37] LABS: Anion Gap 12 mmol/L (10-20); BUN (Urea Nitrogen) 11 mg/dL (9.8-20.1); Calc. Creatinine Clearance 62 mL/min (70-130); Calcium 8.5 mg/dL (7.8-10.44); Carbon Dioxide 20 mmol/L (23-31); Chloride 112 mmol/L (98-107); Estimated GFR 78; Glucose 111 mg/dL (83-110); Potassium 3.3 mmol/L (3.5-5.1); Sodium 141 mmol/L (136-145)
[2023-04-12] MEDS: Carbidopa/Levodopa 25-100 mg Tablet PO SCH ×3 (09:03→21:27)
[2023-04-12] MEDS: Famotidine 20 MG TAB PO SCH ×2 (09:03→21:27)
[2023-04-12] MEDS: Losartan 25 MG TAB PO SCH (09:03)
[2023-04-12] MEDS: Sertraline 25 MG TAB PO SCH (09:03)
[2023-04-12] MEDS: Cholestyramine/Aspartame 4 gm Packet PO SCH ×2 (09:04→21:27)
[2023-04-12] MEDS: Amlodipine 5 MG TAB PO SCH (09:04)
[2023-04-12] MEDS: Ezetimibe 10 MG TAB PO SCH (09:04)
[2023-04-12] MEDS: Sodium Chloride 0.9% 1,000 ML IV SCH (09:06)
[2023-04-12] MEDS: 1/2 NS w/KCL 20 mEq 1,000 ML IV SCH (18:35)
[2023-04-12] MEDS: Mirabegron ER 25 MG ER.TAB PO SCH (21:27)
[2023-04-13 05:33] LABS: #Eosinphils 0.2 thou/uL (0.0-0.7); #Monocytes 0.3 thou/uL (0.11-0.59); #Neutrophils 1.8 thou/uL (1.40-6.50); %Eosinophils 5.7 % (0.0-10.0); %Lymphocytes 25.9 % (21.0-51.0); %Monocytes 10.7 % (0.0-10.0); %Neutrophils 57.4 % (42.0-75.0); Hematocrit 31.8 % (36.0-47.0); Hemoglobin 10.6 g/dL (12.0-16.0); Mean Corpuscular HGB CONC 33.3 g/dL (32.0-36.0); Mean Corpuscular Hemoglobin 28.6 pg (27.0-31.0); Mean Corpuscular Volume 85.7 fl (78.0-98.0); Mean Platelet Volume 10.5 fL (7.4-10.4); RBC Distribution Width 13.4 % (11.5-14.5); Red Blood Cell (RBC) Count 3.71 mill/uL (4.20-5.40); White Blood Cell (WBC) Count 3.2 10x3/uL (4.8-10.8)
[2023-04-13 05:58] LABS: Anion Gap 10 mmol/L (10-20); BUN (Urea Nitrogen) 7 mg/dL (9.8-20.1); Calc. Creatinine Clearance 68 mL/min (70-130); Calcium 8.7 mg/dL (7.8-10.44); Carbon Dioxide 23 mmol/L (23-31); Chloride 109 mmol/L (98-107); Estimated GFR 85; Glucose 99 mg/dL (83-110); Magnesium 1.8 mg/dL (1.6-2.6); Potassium 3.3 mmol/L (3.5-5.1); Sodium 139 mmol/L (136-145)
[2023-04-13 06:02] LABS: Platelet Count 134 10x3/uL (130-400)
[2023-04-13] MEDS: Cholestyramine/Aspartame 4 gm Packet PO SCH ×3 (09:21→23:15)
[2023-04-13] MEDS: Sertraline 25 MG TAB PO SCH (09:21)
[2023-04-13] MEDS: Famotidine 20 MG TAB PO SCH ×2 (09:21→22:52)
[2023-04-13] MEDS: Ezetimibe 10 MG TAB PO SCH (09:21)
[2023-04-13] MEDS: Amlodipine 5 MG TAB PO SCH (09:21)
[2023-04-13] MEDS: Carbidopa/Levodopa 25-100 mg Tablet PO SCH ×3 (09:21→22:53)
[2023-04-13] MEDS: Losartan 25 MG TAB PO SCH (09:21)
[2023-04-13] MEDS: 1/2 NS w/KCL 20 mEq 1,000 ML IV SCH (14:52)
[2023-04-13] MEDS: Mirabegron ER 25 MG ER.TAB PO SCH (22:52)
[2023-04-13] MEDS: Ondansetron PF 4 MG/2 ML Vial IVP PRN (22:53)
[2023-04-14 05:13] LABS: #Eosinphils 0.2 thou/uL (0.0-0.7); #Monocytes 0.4 thou/uL (0.11-0.59); #Neutrophils 2.1 thou/uL (1.40-6.50); %Basophils 0.3 % (0.0-1.0); %Eosinophils 6.3 % (0.0-10.0); %Lymphocytes 27.3 % (21.0-51.0); %Monocytes 10.2 % (0.0-10.0); %Neutrophils 55.4 % (42.0-75.0); Hematocrit 34.3 % (36.0-47.0); Hemoglobin 11.3 g/dL (12.0-16.0); Mean Corpuscular HGB CONC 32.9 g/dL (32.0-36.0); Mean Corpuscular Hemoglobin 27.7 pg (27.0-31.0); Mean Corpuscular Volume 84.1 fl (78.0-98.0); Mean Platelet Volume 9.9 fL (7.4-10.4); Platelet Count 155 10x3/uL (130-400); RBC Distribution Width 13.2 % (11.5-14.5); Red Blood Cell (RBC) Count 4.08 mill/uL (4.20-5.40); White Blood Cell (WBC) Count 3.8 10x3/uL (4.8-10.8)
[2023-04-14 05:38] LABS: Anion Gap 14 mmol/L (10-20); BUN (Urea Nitrogen) 6 mg/dL (9.8-20.1); Calc. Creatinine Clearance 69 mL/min (70-130); Calcium 8.8 mg/dL (7.8-10.44); Carbon Dioxide 21 mmol/L (23-31); Chloride 109 mmol/L (98-107); Estimated GFR 86; Glucose 90 mg/dL (83-110); Potassium 3.7 mmol/L (3.5-5.1); Sodium 140 mmol/L (136-145)
[2023-04-14] MEDS: Sertraline 25 MG TAB PO SCH ×2 (10:57→10:58)
[2023-04-14] MEDS: Carbidopa/Levodopa 25-100 mg Tablet PO SCH ×3 (10:58→19:50)
[2023-04-14] MEDS: Amlodipine 5 MG TAB PO SCH (10:58)
[2023-04-14] MEDS: Ezetimibe 10 MG TAB PO SCH (10:59)
[2023-04-14] MEDS: 1/2 NS w/KCL 20 mEq 1,000 ML IV SCH (10:59)
[2023-04-14] MEDS: Losartan 25 MG TAB PO SCH (10:59)
[2023-04-14] MEDS: Famotidine 20 MG TAB PO SCH ×2 (10:59→20:44)
[2023-04-14] MEDS: Cholestyramine/Aspartame 4 gm Packet PO SCH (20:05)
[2023-04-14] MEDS: Mirabegron ER 25 MG ER.TAB PO SCH (20:45)
[2023-04-15] MEDS: 1/2 NS w/KCL 20 mEq 1,000 ML IV SCH ×2 (04:54→10:08)
[2023-04-15 04:59] LABS: #Eosinphils 0.3 thou/uL (0.0-0.7); #Monocytes 0.5 thou/uL (0.11-0.59); #Neutrophils 2.9 thou/uL (1.40-6.50); %Basophils 0.2 % (0.0-1.0); %Eosinophils 6.9 % (0.0-10.0); %Lymphocytes 20.4 % (21.0-51.0); %Monocytes 10.4 % (0.0-10.0); %Neutrophils 61.9 % (42.0-75.0); Hematocrit 35.7 % (36.0-47.0); Hemoglobin 11.8 g/dL (12.0-16.0); Mean Corpuscular HGB CONC 33.1 g/dL (32.0-36.0); Mean Corpuscular Volume 84.8 fl (78.0-98.0); Platelet Count 158 10x3/uL (130-400); RBC Distribution Width 13.1 % (11.5-14.5); Red Blood Cell (RBC) Count 4.21 mill/uL (4.20-5.40); White Blood Cell (WBC) Count 4.6 10x3/uL (4.8-10.8)
[2023-04-15 05:29] LABS: Anion Gap 13 mmol/L (10-20); BUN (Urea Nitrogen) 6 mg/dL (9.8-20.1); Calc. Creatinine Clearance 72 mL/min (70-130); Carbon Dioxide 24 mmol/L (23-31); Chloride 108 mmol/L (98-107); Estimated GFR 87; Glucose 109 mg/dL (83-110); Potassium 3.6 mmol/L (3.5-5.1); Sodium 141 mmol/L (136-145)
[2023-04-15] MEDS ORDERED: Sertraline 25 MG TAB PO SCH (08:15)
[2023-04-15] MEDS: Ezetimibe 10 MG TAB PO SCH (08:35)
[2023-04-15] MEDS: Losartan 25 MG TAB PO SCH (08:35)
[2023-04-15] MEDS: Famotidine 20 MG TAB PO SCH ×2 (08:35→22:34)
[2023-04-15] MEDS: Amlodipine 5 MG TAB PO SCH (08:36)
[2023-04-15] MEDS: Carbidopa/Levodopa 25-100 mg Tablet PO SCH ×3 (08:36→22:34)
[2023-04-15] MEDS: Cholestyramine/Aspartame 4 gm Packet PO SCH (12:45)
[2023-04-15] MEDS: Mirabegron ER 25 MG ER.TAB PO SCH (22:33)
[2023-04-16] MEDS: Amlodipine 5 MG TAB PO SCH (09:32)
[2023-04-16] MEDS: Carbidopa/Levodopa 25-100 mg Tablet PO SCH ×3 (09:32→23:02)
[2023-04-16] MEDS: Famotidine 20 MG TAB PO SCH ×2 (09:32→23:02)
[2023-04-16] MEDS: Ezetimibe 10 MG TAB PO SCH (09:32)
[2023-04-16] MEDS: Losartan 25 MG TAB PO SCH (09:33)
[2023-04-16] MEDS: Sertraline 25 MG TAB PO SCH (09:33)
[2023-04-16] MEDS: 1/2 NS w/KCL 20 mEq 1,000 ML IV SCH (09:45)
[2023-04-16] MEDS: Ondansetron PF 4 MG/2 ML Vial IVP PRN (11:21)
[2023-04-16] MEDS: Cholestyramine/Aspartame 4 gm Packet PO SCH (15:03)
[2023-04-16] MEDS ORDERED: Ondansetron ODT 4 MG TAB PO PRN (16:56)
[2023-04-16] MEDS: Mirabegron ER 25 MG ER.TAB PO SCH (23:03)
[2023-04-16] MEDS: Donepezil HCl 5 MG TAB PO SCH (23:03)
[2023-04-17 04:18] LABS: #Eosinphils 0.3 thou/uL (0.0-0.7); #Monocytes 0.5 thou/uL (0.11-0.59); %Basophils 0.2 % (0.0-1.0); %Eosinophils 5.5 % (0.0-10.0); %Lymphocytes 19.6 % (21.0-51.0); %Monocytes 10.8 % (0.0-10.0); %Neutrophils 63.3 % (42.0-75.0); Hematocrit 34.3 % (36.0-47.0); Hemoglobin 11.4 g/dL (12.0-16.0); Mean Corpuscular HGB CONC 33.2 g/dL (32.0-36.0); Mean Corpuscular Hemoglobin 28.4 pg (27.0-31.0); Mean Corpuscular Volume 85.3 fl (78.0-98.0); Mean Platelet Volume 10.1 fL (7.4-10.4); Platelet Count 188 10x3/uL (130-400); RBC Distribution Width 13.2 % (11.5-14.5); Red Blood Cell (RBC) Count 4.02 mill/uL (4.20-5.40); White Blood Cell (WBC) Count 4.7 10x3/uL (4.8-10.8)
[2023-04-17 04:43] LABS: ALT (SGPT) 10 U/L (8-55); AST (SGOT) 20 U/L (5-34); Albumin 3.8 g/dL (3.4-4.8); Alkaline Phosphatase 79 U/L (40-110); Anion Gap 14 mmol/L (10-20); BUN (Urea Nitrogen) 9 mg/dL (9.8-20.1); Bilirubin, Total 0.6 mg/dL (0.2-1.2); Calc. Creatinine Clearance 64 mL/min (70-130); Calcium 9.1 mg/dL (7.8-10.44); Carbon Dioxide 20 mmol/L (23-31); Chloride 109 mmol/L (98-107); Estimated GFR 82; Globulin 2.5 g/dL (2.4-3.5); Glucose 99 mg/dL (83-110); Potassium 3.6 mmol/L (3.5-5.1); Protein, Total 6.3 g/dL (5.8-8.1); Sodium 139 mmol/L (136-145)
[2023-04-17] MEDS: Famotidine 20 MG TAB PO SCH ×2 (09:01→20:58)
[2023-04-17] MEDS: Carbidopa/Levodopa 25-100 mg Tablet PO SCH ×3 (09:01→20:58)
[2023-04-17] MEDS: Amlodipine 5 MG TAB PO SCH (09:01)
[2023-04-17] MEDS: Losartan 25 MG TAB PO SCH (09:01)
[2023-04-17] MEDS: Sertraline 25 MG TAB PO SCH (09:01)
[2023-04-17] MEDS: Ezetimibe 10 MG TAB PO SCH (09:02)
[2023-04-17] MEDS: Cholestyramine/Aspartame 4 gm Packet PO SCH (14:23)
[2023-04-17] MEDS: Mirabegron ER 25 MG ER.TAB PO SCH (20:58)
[2023-04-17] MEDS: Acetaminophen 500 MG TAB PO PRN (20:58)
[2023-04-17] MEDS: Donepezil HCl 5 MG TAB PO SCH (20:59)
[2023-04-18] MEDS: Amlodipine 5 MG TAB PO SCH (10:18)
[2023-04-18] MEDS: Carbidopa/Levodopa 25-100 mg Tablet PO SCH ×3 (10:18→21:42)
[2023-04-18] MEDS: Ezetimibe 10 MG TAB PO SCH (10:18)
[2023-04-18] MEDS: Famotidine 20 MG TAB PO SCH ×2 (10:18→21:42)
[2023-04-18] MEDS: Sertraline 25 MG TAB PO SCH (10:18)
[2023-04-18] MEDS: Losartan 25 MG TAB PO SCH (10:18)
[2023-04-18] MEDS: Cholestyramine/Aspartame 4 gm Packet PO SCH (15:48)
[2023-04-18] MEDS: Mirabegron ER 25 MG ER.TAB PO SCH (21:42)
[2023-04-18] MEDS: Acetaminophen 500 MG TAB PO PRN (21:42)
[2023-04-18] MEDS: Donepezil HCl 5 MG TAB PO SCH (21:42)
[2023-04-19] MEDS: Carbidopa/Levodopa 25-100 mg Tablet PO SCH ×2 (08:38→15:40)
[2023-04-19] MEDS: Famotidine 20 MG TAB PO SCH (08:38)
[2023-04-19] MEDS: Losartan 25 MG TAB PO SCH (08:39)
[2023-04-19] MEDS: Amlodipine 5 MG TAB PO SCH (08:39)
[2023-04-19] MEDS: Ezetimibe 10 MG TAB PO SCH (08:39)
[2023-04-19] MEDS ORDERED: Sertraline 25 MG TAB PO SCH (09:00)
[2023-04-19] MEDS: Cholestyramine/Aspartame 4 gm Packet PO SCH (12:17)
[2023-04-19 17:00] VITALS: BP 112/67; TEMP 98
== END 2023-04-19 19:00 | DRG 177 ==
LOC: ERS 14:28 → 2SE 17:57 → OBSVTOIN 04-08 15:54
PROVIDERS: ADMIT Family Medicine; ATTEND Internal Medicine
PROC: 8E0ZXY6 Isolation (ICD-10-PCS; principal; 2023-04-08)
PROC: 4A10X4Z Monitoring of Central Nervous Electrical Activity, External Approach (ICD-10-PCS; 2023-04-17)
DX: U07.1 COVID-19 (principal); G92.8 Other toxic encephalopathy; N17.9 Acute kidney failure, unspecified; E11.9 Type 2 diabetes mellitus without complications; I10 Essential (primary) hypertension; E78.5 Hyperlipidemia, unspecified; F39 Unspecified mood [affective] disorder; Z66 Do not resuscitate; E55.9 Vitamin D deficiency, unspecified; K21.9 Gastro-esophageal reflux disease without esophagitis; G21.4 Vascular parkinsonism; K58.9 Irritable bowel syndrome, unspecified; N32.81 Overactive bladder; E87.6 Hypokalemia; F07.81 Postconcussional syndrome; Z99.3 Dependence on wheelchair; Z88.8 Allergy status to other drugs, medicaments and biological substances; Z88.5 Allergy status to narcotic agent; Z88.0 Allergy status to penicillin; Z88.1 Allergy status to other antibiotic agents; Z91.013 Allergy to seafood; Z90.49 Acquired absence of other specified parts of digestive tract; Z90.710 Acquired absence of both cervix and uterus
CPT/HCPCS: 36415; 36416; 51701; 70450; 70496; 70498; 71045; 74018; 80048; 80053; 80061; 81001; 83605; 83735; 84443; 84484; 85025; 90471; 90694; 93005; 93306; 95711; 95819; 95957; G0008; G0378; J2060; J2405; J3480; J7050; Q0162; Q9967; U0002

== ENCOUNTER 2023-08-04 07:37 | Emergency (ER) | payer MEDICARE, MEDICAID ==
[2023-08-04] MEDS ORDERED: fentaNYL 50 mcg/mL 1 mL Vial ONE ×2 (08:41→13:56)
[2023-08-04 13:23] LABS: #Eosinphils 0.1 thou/uL (0.0-0.7); #Monocytes 0.7 thou/uL (0.11-0.59); #Neutrophils 9.7 thou/uL (1.40-6.50); %Basophils 0.3 % (0.0-1.0); %Eosinophils 1.2 % (0.0-10.0); %Lymphocytes 7.6 % (21.0-51.0); %Monocytes 5.9 % (0.0-10.0); %Neutrophils 84.8 % (42.0-75.0); Hematocrit 36.3 % (36.0-47.0); Hemoglobin 12.1 g/dL (12.0-16.0); Mean Corpuscular HGB CONC 33.3 g/dL (32.0-36.0); Mean Corpuscular Hemoglobin 29.1 pg (27.0-31.0); Mean Corpuscular Volume 87.3 fl (78.0-98.0); Mean Platelet Volume 9.5 fL (7.4-10.4); Platelet Count 229 10x3/uL (130-400); RBC Distribution Width 14.5 % (11.5-14.5); Red Blood Cell (RBC) Count 4.16 mill/uL (4.20-5.40); White Blood Cell (WBC) Count 11.4 10x3/uL (4.8-10.8)
[2023-08-04 13:46] LABS: ALT (SGPT) 27 U/L (8-55); AST (SGOT) 28 U/L (5-34); Albumin 3.6 g/dL (3.4-4.8); Alkaline Phosphatase 74 U/L (40-110); Anion Gap 9 mmol/L (10-20); BUN (Urea Nitrogen) 11 mg/dL (9.8-20.1); Bilirubin, Total 0.7 mg/dL (0.2-1.2); Calc. Creatinine Clearance 0 mL/min (70-130); Calcium 9.4 mg/dL (7.8-10.44); Carbon Dioxide 24 mmol/L (23-31); Chloride 111 mmol/L (98-107); Estimated GFR 86; Globulin 3.1 g/dL (2.4-3.5); Glucose 122 mg/dL (83-110); Potassium 3.7 mmol/L (3.5-5.1); Protein, Total 6.7 g/dL (5.8-8.1); Sodium 140 mmol/L (136-145)
== END 2023-08-04 17:01 ==
LOC: ERS 07:37
DX: R53.1 Weakness (principal); E11.9 Type 2 diabetes mellitus without complications; I10 Essential (primary) hypertension; E66.9 Obesity, unspecified; W06.XXXA Fall from bed, initial encounter
CPT/HCPCS: 72170; 73552 ×2; 80053; 85025; 96374; 96376; 99285; J3010; 36416